=== PATIENT | female | born 1940 | race Caucasian/White ===

== ENCOUNTER → 2020-09-20 | Outpatient (CLI) | payer MEDICARE ==
--- NOTE | 2020-09-21 06:59 | CT ---
EXAMINATION TYPE: CT angio abdomen pelvis DATE OF EXAM: 09/20/2020 HISTORY: Swelling to right lower limb. CT DLP: 588mGycm Automated Exposure Control for Dose Reduction was Utilized. CONTRAST: CTA scan of the abdomen and pelvis is performed without and with IV Contrast, patient injected with 1 00 mL of Isovue 370. Three-D reconstructed images created on an independent workstation and reviewed. COMPARISON: None. FINDINGS: VASCULAR: No suspicious hyperdensity to suggest intramural hematoma. Patent celiac artery and SMA wit hout significant stenosis. Accessory left renal artery. The right single renal artery. Patent JHON. No significant stenosis. [id number] calcified plaque in the distal abdominal aorta. No significan t plaque or stenosis in common iliac arteries bilaterally. Mild to moderate peripheral calcified plaq ue common femoral arteries bilaterally left greater than right. No significant stenosis. Satisfactory branching into superficial and deep femoral arteries. No significant stenosis. No linear hypodensity to suggest dissection. No greater than 3.0 cm AAA. LUNG BASES: Mild to moderate anterior left greater than right bibasilar linear scarring and/or atelec tasis. LIVER/GB: Occasional subcentimeter low dense lesion presumed benign reference anterior left hepatic l obe axial image 16 series 3. PANCREAS: No significant abnormality is seen. SPLEEN: No significant abnormality is seen. ADRENALS: No significant abnormality is seen. KIDNEYS: No significant abnormality is seen. BOWEL: No significant abnormality is seen. UTERUS/ADNEXA: Anteverted uterus. Scattered bilateral pelvic phleboliths LYMPH NODES: Prominent borderline enlarged bilateral groin lymph nodes. No definitive greater than 1 cm abdominal or pelvic lymph nodes. Few scattered prominent but subcentimeter mesenteric lymph nodes. OSSEOUS STRUCTURES: Osseous structures demineralized. Metallic fixation hardware from left proximal f emur surgery partially image causes streak artifact somewhat limiting evaluation of pelvic structures . Mild facet arthropathy lower lumbar levels. OTHER: Moderate to large sized fat-containing umbilical hernia. There is small left inguinal hernia c ontaining portion of small bowel loop and some fluid. IMPRESSION: 1. No significant stenosis in the aortoiliac system bilaterally. 2. Small left inguinal hernia containing short segment of small bowel loop, no abnormal dilatation to suggest obstruction.
== END | disposition home or self-care (01) ==
LOC: RADCTMAIN 14:58
PROVIDERS: ATTEND Internal Medicine
DX: K40.90 Unilateral inguinal hernia, without obstruction or gangrene, not specified as recurrent (principal); Z88.2 Allergy status to sulfonamides
CPT/HCPCS: 82565; 84520; 36415; 74174; Q9967

== ENCOUNTER 2021-03-15 23:46 | Inpatient (IN) | payer MEDICARE ==
[2021-03-16] MEDS ORDERED: SODIUM CHLORIDE 0.9% 1,000 ML IV STA (00:07)
[2021-03-16] MEDS ORDERED: MORPHINE SULFATE 4 MG/ML SYRINGE IV STA (00:07)
--- NOTE | 2021-03-16 00:09 | ED ---
Abdominal Pain HPI - General Chief Complaint: Abdominal Pain Stated Complaint: Abdominal pain Time Seen by Provider: 03/15/21 23:47 Source: EMS, RN notes reviewed, old records reviewed Mode of arrival: EMS Limitations: no limitations - History of Present Illness Initial Comments: This is a 72-year-old female DF for evaluation. She presents today for ev aluation of abdominal pain nausea and not feeling well. Patient states she's had bloating abdominal pain for 3 days. Otherwise patient has no new complaints. Some occasional mild nausea with decreased appetite. No fevers. No dysuria no problems with bowel MD Complaint: abdominal pain -: days(s) (3) Location: diffuse Radiation: none Migration to: no migration Severity: moderate Severity scale (1-10): 5 Quality: cramping, aching Consistency: intermittent Improves With: nothing Worsens With: nothing Context: other (none) Associated Symptoms: nausea Treatments Prior to Arrival: other (none) - Related Data Home Medications Medication Instructions Recorded Confirmed Pantoprazole [Protonix] 40 mg PO W/BRKFST 03/16/21 03/16/21 Previous Rx's Medication Instructions Recorded Acetaminophen Tab [Tylenol Tab] 500 mg PO Q8H 5 Days tablet 03/24/21 Ibuprofen [Motrin] 600 mg PO TID PRN tab 03/24/21 Allergies Allergy/AdvReac Type Severity Reaction Status Date / Time Penicillins Allergy Unknown Verified 03/16/21 07:40 Sulfa (Sulfonamide Allergy Unknown Verified 03/16/21 07:40 Antibiotics) Review of Systems ROS Statement: Those systems with pertinent positive or pertinent negative responses have been documented in the HPI. ROS Other: All systems not noted in ROS Statement are negative. Past Medical History Past Medical History: GERD/Reflux, Pneumonia Additional Past Medical History / Comment(s): bowel perforation 2019, History of Any Multi-Drug Resistant Organisms: None Reported Past Surgical History: Bowel Resection Additional Past Surgical History / Comment(s): left femur surgery, Smoking Status: Never smoker Past Alcohol Use History: None Reported Past Drug Use History: None Reported - Past Family History Mother Family Medical History: Myocardial Infarction ([place]) General Exam Limitations: no limitations General appearance: alert, in no apparent distress Head exam: Present: atraumatic, normocephalic, normal inspection Eye exam: Present: normal appearance, PERRL, EOMI. Absent: scleral icterus, conjunctival injection, periorbital swelling ENT exam: Present: normal exam, mucous membranes moist Neck exam: Present: normal inspection. Absent: tenderness, meningismus, lymphadenopathy Respiratory exam: Present: normal lung sounds bilaterally. Absent: respiratory distress, wheezes, rales, rhonchi, stridor Cardiovascular Exam: Present: regular rate, normal rhythm, normal heart sounds. Absent: systolic murmur, diastolic murmur, rubs, gallop, clicks GI/Abdominal exam: Present: soft, normal bowel sounds. Absent: distended, t enderness, guarding, rebound, rigid Extremities exam: Present: normal inspection, full ROM, normal capillary refill. Absent: tenderness, pedal edema, joint swelling, calf tenderness Back exam: Present: normal inspection Neurological exam: Present: alert, oriented X3, CN II-XII intact Psychiatric exam: Present: normal affect, normal mood Skin exam: Present: warm, dry, intact, normal color. Absent: rash Course Vital Signs 03/15/21 03/16/21 03/16/21 23:48 04:55 08:26 Temperature 98.1 F 97.8 F Pulse Rate 82 76 75 Pulse Rate [ Right Brachial] Respiratory 16 16 18 Rate Blood Pressure 160/77 150/80 123/61 Blood Pressure [Right Arm] O2 Sat by Pulse 96 98 96 Oximetry 03/16/21 03/16/21 03/16/21 13:00 14:00 14:38 Temperature 97.9 F 97.9 F Pulse Rate 69 Pulse Rate [ 76 76 Right Brachial] Respiratory 12 12 18 Rate Blood Pressure 119/57 Blood Pressure 120/70 120/70 [Right Arm] O2 Sat by Pulse 97 97 95 Oximetry - Reevaluation(s) Reevaluation #1: Medical record is reviewed Patient symptoms are improved here in the ER Patient informed of results and questions answered Medical Decision Making - Medical Decision Making 80 female to the ER with bilateral inguinal hernia urinary tract infection. Patient will be admitted for IV antibiotics - Lab Data Result diagrams: 03/22/21 07:48 03/22/21 07:48 Lab Results 03/16/21 03/16/21 03/16/21 Range/Units 00:43 00:43 00:43 WBC 9.5 (3.8-10.6) k/uL RBC 4.10 (3.80-5.40) m/uL Hgb 12.7 (11.4-16.0) gm/dL Hct 38.1 (34.0-46.0) % MCV 92.9 (80.0-100.0) fL MCH 31.1 (25.0-35.0) pg MCHC 33.4 (31.0-37.0) g/dL RDW 12.9 (11.5-15.5) % Plt Count 196 (150-450) k/uL MPV 10.3 Immature Gran % (Auto) % Absolute Nucleated RBC (0.00-0.00) X 10*3/uL Neutrophils % 75 % Lymphocytes % 17 % Monocytes % 5 % Eosinophils % 2 % Basophils % 1 % Immature Gran # (0.00-0.04) X 10*3/uL Neutrophils # 7.2 (1.3-7.7) k/uL Lymphocytes # 1.6 (1.0-4.8) k/uL Monocytes # 0.4 (0-1.0) k/uL Eosinophils # 0.2 (0-0.7) k/uL Basophils # 0.1 (0-0.2) k/uL NRBC/100 WBC Diff (0.0-0.0) /100 WBCS PT 10.3 (9.0-12.0) sec INR 1.0 (<1.2) APTT 20.9 L (22.0-30.0) sec Sodium (137-145) mmol/L Potassium (3.5-5.1) mmol/L Chloride (98-107) mmol/L Carbon Dioxide (22-30) mmol/L Anion Gap mmol/L BUN (7-17) mg/dL Creatinine (0.52-1.04) mg/dL Est GFR (CKD-EPI)AfAm (>60 ml/min/1.73 sqM) Est GFR (CKD-EPI)NonAf (>60 ml/min/1.73 sqM) BUN/Creatinine Ratio (12.00-20.00) Ratio Glucose (74-99) mg/dL Lactic Ac Sepsis Rflx Plasma Lactic Acid Dilip (0.7-2.0) mmol/L Calcium (8.4-10.2) mg/dL Phosphorus (2.4-5.1) mg/dL Magnesium (1.5-2.4) mg/dL Total Bilirubin (0.2-1.3) mg/dL AST (14-36) U/L ALT (4-34) U/L Alkaline Phosphatase (38-126) U/L Creatine Kinase (30-135) U/L Troponin I (0.000-0.034) ng/mL Total Protein (6.3-8.2) g/dL Albumin (3.5-5.0) g/dL Globulin (1.6-3.3) g/dL Albumin/Globulin Ratio (1.60-3.17) g/dL Amylase (30-110) U/L Lipase (23-300) U/L Urine Color Light Yellow Urine Appearance Turbid H (Clear) Urine pH 7.5 (5.0-8.0) Ur Specific Harrold 1.017 (1.001-1.035) Urine Protein 1+ H (Negative) Urine Glucose (UA) Negative (Negative) Urine Ketones Negative (Negative) Urine Blood Small H (Negative) Urine Nitrite Negative (Negative) Urine Bilirubin Negative (Negative) Urine Urobilinogen <2.0 (<2.0) mg/dL Ur Leukocyte Esterase Large H (Negative) Urine RBC 18 H (0-5) /hpf Urine WBC >182 H (0-5) /hpf Ur Squamous Epith Cells 18 H (0-4) /hpf Urine Bacteria Occasional H (None) /hpf Urine Mucus Rare H (None) /hpf 03/16/21 03/16/21 03/16/21 Range/Units 00:43 00:43 00:43 WBC (3.8-10.6) k/uL RBC (3.80-5.40) m/uL Hgb (11.4-16.0) gm/dL Hct (34.0-46.0) % MCV (80.0-100.0) fL MCH (25.0-35.0) pg MCHC (31.0-37.0) g/dL RDW (11.5-15.5) % Plt Count (150-450) k/uL MPV Immature Gran % (Auto) % Absolute Nucleated RBC (0.00-0.00) X 10*3/uL Neutrophils % % Lymphocytes % % Monocytes % % Eosinophils % % Basophils % % Immature Gran # (0.00-0.04) X 10*3/uL Neutrophils # (1.3-7.7) k/uL Lymphocytes # (1.0-4.8) k/uL Monocytes # (0-1.0) k/uL Eosinophils # (0-0.7) k/uL Basophils # (0-0.2) k/uL NRBC/100 WBC Diff (0.0-0.0) /100 WBCS PT (9.0-12.0) sec INR (<1.2) APTT (22.0-30.0) sec Sodium 137 (137-145) mmol/L Potassium 4.2 (3.5-5.1) mmol/L Chloride 106 (98-107) mmol/L Carbon Dioxide 21 L (22-30) mmol/L Anion Gap 10 mmol/L BUN 23 H (7-17) mg/dL Creatinine 0.72 (0.52-1.04) mg/dL Est GFR (CKD-EPI)AfAm >90 (>60 ml/min/1.73 sqM) Est GFR (CKD-EPI)NonAf 81 (>60 ml/min/1.73 sqM) BUN/Creatinine Ratio (12.00-20.00) Ratio Glucose 131 H (74-99) mg/dL Lactic Ac Sepsis Rflx Plasma Lactic Acid Dilip 2.2 H* (0.7-2.0) mmol/L Calcium 10.1 (8.4-10.2) mg/dL Phosphorus (2.4-5.1) mg/dL Magnesium (1.5-2.4) mg/dL Total Bilirubin 0.3 (0.2-1.3) mg/dL AST 29 (14-36) U/L ALT 17 (4-34) U/L Alkaline Phosphatase 90 (38-126) U/L Creatine Kinase 144 H (30-135) U/L Troponin I <0.012 (0.000-0.034) ng/mL Total Protein 7.1 (6.3-8.2) g/dL Albumin 4.3 (3.5-5.0) g/dL Globulin (1.6-3.3) g/dL Albumin/Globulin Ratio (1.60-3.17) g/dL Amylase 101 (30-110) U/L Lipase 166 (23-300) U/L Urine Color Urine Appearance (Clear) Urine pH (5.0-8.0) Ur Specific [place] (1.001-1.035) Urine Protein (Negative) Urine Glucose (UA) (Negative) Urine Ketones (Negative) Urine Blood (Negative) Urine Nitrite (Negative) Urine Bilirubin (Negative) Urine Urobilinogen (<2.0) mg/dL Ur Leukocyte Esterase (Negative) Urine RBC (0-5) /hpf Urine WBC (0-5) /hpf Ur Squamous Epith Cells (0-4) /hpf Urine Bacteria (None) /hpf Urine Mucus (None) /hpf 03/16/21 03/16/21 03/16/21 Range/Units 02:02 04:21 04:21 WBC (3.8-10.6) k/uL RBC (3.80-5.40) m/uL Hgb (11.4-16.0) gm/dL Hct (34.0-46.0) % MCV (80.0-100.0) fL MCH (25.0-35.0) pg MCHC (31.0-37.0) g/dL RDW (11.5-15.5) % Plt Count (150-450) k/uL MPV Immature Gran % (Auto) % Absolute Nucleated RBC (0.00-0.00) X 10*3/uL Neutrophils % % Lymphocytes % % Monocytes % % Eosinophils % % Basophils % % Immature Gran # (0.00-0.04) X 10*3/uL Neutrophils # (1.3-7.7) k/uL Lymphocytes # (1.0-4.8) k/uL Monocytes # (0-1.0) k/uL Eosinophils # (0-0.7) k/uL Basophils # (0-0.2) k/uL NRBC/100 WBC Diff (0.0-0.0) /100 WBCS PT (9.0-12.0) sec INR (<1.2) APTT (22.0-30.0) sec Sodium (137-145) mmol/L Potassium (3.5-5.1) mmol/L Chloride (98-107) mmol/L Carbon Dioxide (22-30) mmol/L Anion Gap mmol/L BUN (7-17) mg/dL Creatinine (0.52-1.04) mg/dL Est GFR (CKD-EPI)AfAm (>60 ml/min/1.73 sqM) Est GFR (CKD-EPI)NonAf (>60 ml/min/1.73 sqM) BUN/Creatinine Ratio (12.00-20.00) Ratio Glucose (74-99) mg/dL Lactic Ac Sepsis Rflx Y Plasma Lactic Acid Dilip 1.4 (0.7-2.0) mmol/L Calcium (8.4-10.2) mg/dL Phosphorus (2.4-5.1) mg/dL Magnesium (1.5-2.4) mg/dL Total Bilirubin (0.2-1.3) mg/dL AST (14-36) U/L ALT (4-34) U/L Alkaline Phosphatase (38-126) U/L Creatine Kinase (30-135) U/L Troponin I <0.012 (0.000-0.034) ng/mL Total Protein (6.3-8.2) g/dL Albumin (3.5-5.0) g/dL Globulin (1.6-3.3) g/dL Albumin/Globulin Ratio (1.60-3.17) g/dL Amylase (30-110) U/L Lipase (23-300) U/L Urine Color Urine Appearance (Clear) Urine pH (5.0-8.0) Ur Specific Har[place] (1.001-1.035) Urine Protein (Negative) Urine Glucose (UA) (Negative) Urine Ketones (Negative) Urine Blood (Negative) Urine Nitrite (Negative) Urine Bilirubin (Negative) Urine Urobilinogen (<2.0) mg/dL Ur Leukocyte Esterase (Negative) Urine RBC (0-5) /hpf Urine WBC (0-5) /hpf Ur Squamous Epith Cells (0-4) /hpf Urine Bacteria (None) /hpf Urine Mucus (None) /hpf 03/16/21 03/17/21 03/17/21 Range/Units 07:09 04:55 04:55 WBC 6.33 (3.8-10.6) k/uL RBC 3.89 L (3.80-5.40) m/uL Hgb 11.8 L (11.4-16.0) gm/dL Hct 37.1 L (34.0-46.0) % MCV 95.4 (80.0-100.0) fL MCH 30.3 (25.0-35.0) pg MCHC 31.8 L (31.0-37.0) g/dL RDW 13.4 (11.5-15.5) % Plt Count 197 (150-450) k/uL MPV 13.3 H Immature Gran % (Auto) 0.6 % Absolute Nucleated RBC 0 (0.00-0.00) X 10*3/uL Neutrophils % 60.7 % Lymphocytes % 26.4 % Monocytes % 7.0 % Eosinophils % 3.9 % Basophils % 1.4 % Immature Gran # 0.04 (0.00-0.04) X 10*3/uL Neutrophils # 3.84 (1.3-7.7) k/uL Lymphocytes # 1.67 (1.0-4.8) k/uL Monocytes # 0.44 (0-1.0) k/uL Eosinophils # 0.25 (0-0.7) k/uL Basophils # 0.09 (0-0.2) k/uL NRBC/100 WBC Diff 0 (0.0-0.0) /100 WBCS PT (9.0-12.0) sec INR (<1.2) APTT (22.0-30.0) sec Sodium 142 (137-145) mmol/L Potassium 3.9 (3.5-5.1) mmol/L Chloride 107 (98-107) mmol/L Carbon Dioxide 25.2 (22-30) mmol/L Anion Gap 9.80 mmol/L BUN 11.0 (7-17) mg/dL Creatinine 0.9 (0.52-1.04) mg/dL Est GFR (CKD-EPI)AfAm 71.0 (>60 ml/min/1.73 sqM) Est GFR (CKD-EPI)NonAf 61.2 (>60 ml/min/1.73 sqM) BUN/Creatinine Ratio 12.22 (12.00-20.00) Ratio Glucose 103 (74-99) mg/dL Lactic Ac Sepsis Rflx Plasma Lactic Acid Dilip (0.7-2.0) mmol/L Calcium 9.5 (8.4-10.2) mg/dL Phosphorus 3.1 (2.4-5.1) mg/dL Magnesium 2.4 (1.5-2.4) mg/dL Total Bilirubin 0.6 (0.2-1.3) mg/dL AST 24 (14-36) U/L ALT 16 (4-34) U/L Alkaline Phosphatase 91 (38-126) U/L Creatine Kinase (30-135) U/L Troponin I <0.012 (0.000-0.034) ng/mL Total Protein 6.6 (6.3-8.2) g/dL Albumin 4.10 (3.5-5.0) g/dL Globulin 2.5 (1.6-3.3) g/dL Albumin/Globulin Ratio 1.64 (1.60-3.17) g/dL Amylase (30-110) U/L Lipase (23-300) U/L Urine Color Urine Appearance (Clear) Urine pH (5.0-8.0) Ur Specific [place] (1.001-1.035) Urine Protein (Negative) Urine Glucose (UA) (Negative) Urine Ketones (Negative) Urine Blood (Negative) Urine Nitrite (Negative) Urine Bilirubin (Negative) Urine Urobilinogen (<2.0) mg/dL Ur Leukocyte Esterase (Negative) Urine RBC (0-5) /hpf Urine WBC (0-5) /hpf Ur Squamous Epith Cells (0-4) /hpf Urine Bacteria (None) /hpf Urine Mucus (None) /hpf - Radiology Data Radiology results: report reviewed (CT abdomen and pelvis is positive for bilateral inguinal hernias), image reviewed Disposition Clinical Impression: Abdominal pain, UTI (urinary tract infection), Bilateral inguinal hernia Disposition: ADMITTED IP TO THIS [facility] Condition: Stable Is patient prescribed a controlled substance at d/c from ED?: No
[2021-03-16 00:57] LABS: Basophils # (A) 0.1 k/uL (0-0.2); Basophils % (A) 1 %; Eosinophils # (A) 0.2 k/uL (0-0.7); Eosinophils % (A) 2 %; HCT 38.1 % (34.0-46.0); HGB 12.7 gm/dL (11.4-16.0); Lymphocytes # (A) 1.6 k/uL (1.0-4.8); Lymphocytes % (A) 17 %; MCH 31.1 pg (25.0-35.0); MCHC 33.4 g/dL (31.0-37.0); MCV 92.9 fL (80.0-100.0); Mean Platelet Volume 10.3; Monocytes # (A) 0.4 k/uL (0-1.0); Monocytes % (A) 5 %; Neutrophils # (A) 7.2 k/uL (1.3-7.7); Neutrophils % (A) 75 %; Platelet Count 196 k/uL (150-450); RDW 12.9 % (11.5-15.5); WBC 9.5 k/uL (3.8-10.6)
[2021-03-16 01:10] LABS: ALT 17 U/L (4-34); AST 29 U/L (14-36); African American GFR (CKD) >90 (>60 ml/min/1.73 sqM); Albumin 4.3 g/dL (3.5-5.0); Alkaline Phosphatase 90 U/L (38-126); Amylase 101 U/L (30-110); Anion Gap 10 mmol/L; Blood Urea Nitrogen 23 mg/dL (7-17); Calcium 10.1 mg/dL (8.4-10.2); Carbon Dioxide 21 mmol/L (22-30); Chloride 106 mmol/L (98-107); Creatine Kinase 144 U/L (30-135); Glucose 131 mg/dL (74-99); Lipase 166 U/L (23-300); Non-African American GFR(CKD) 81 (>60 ml/min/1.73 sqM); Potassium 4.2 mmol/L (3.5-5.1); Sodium 137 mmol/L (137-145); Total Bilirubin 0.3 mg/dL (0.2-1.3); Total Protein 7.1 g/dL (6.3-8.2)
[2021-03-16 01:13] LABS: Prothrombin Time 10.3 sec (9.0-12.0)
[2021-03-16 01:15] LABS: Partial Thromboplastin Time 20.9 sec (22.0-30.0)
[2021-03-16 01:29] LABS: Appearance,Urine Turbid (Clear); Bacteria,Urine Occasional /hpf; Bilirubin,Urine Negative (Negative); Blood,Urine Small (Negative); Color,Urine Light Yellow; Glucose,Urine (UA) Negative (Negative); Ketones,Urine Negative (Negative); Leukocyte Esterase,Urine Large (Negative); Mucus,Urine Rare /hpf; Nitrite,Urine Negative (Negative); PH, Urine 7.5 (5.0-8.0); Protein,Urine 1+ (Negative); RBC,Urine 18 /hpf (0-5); Specific Gravity,Urine 1.017 (1.001-1.035); Squamous Epithelial Cell,Urine 18 /hpf (0-4); Urobilinogen,Urine <2.0 mg/dL (<2.0); WBC,Urine >182 /hpf (0-5)
[2021-03-16] MEDS ORDERED: ONDANSETRON 4 MG/2 ML VIAL IVP STA (01:46)
--- NOTE | 2021-03-16 02:29 | CT ---
EXAMINATION TYPE: CT abdomen pelvis w con DATE OF EXAM: 03/16/2021 COMPARISON: 09/20/2020 HISTORY: abdominal pain CT DLP: 1147 mGycm Automated exposure control for dose reduction was used. CONTRAST: Performed with IV Contrast, patient injected with 100 mL of Isovue 300. Exam from the diaphragm to the floor the pelvis with IV contrast. There is some mild subsegmental atelectasis at the lung bases. There is no pleural effusion. Heart si ze is normal. Stomach is intact. Liver spleen pancreas gallbladder appear intact. The bile ducts are not dilated. There is linear density in the gastric antrum measuring 2 cm. This could be a foreign glenna dy that is somewhat transverse in the gastric antrum. There are small hepatic cysts. The largest is in the inferior right lobe of the liver and measures 2 cm. Spleen is intact. There is no pancreatic mass. Gallbladder appears normal. The bile ducts are not dilated. There is no adrenal mass. Kidneys have normal size. There is no hydronephrosis. Ureters are not dilat ed. There is no retroperitoneal adenopathy. Bladder distends smoothly. There are bilateral inguinal h ernias that contain incarcerated loops of small bowel. Appendix is not seen. Cecum is low in the pelv is. There is no sign of thickened appendix. Bladder distends smoothly. Uterus is anteverted. I see no pelvic mass. Lumbar vertebra have normal alignment. There is no compression fracture. The bony pelvi s is intact. There is left hip surgery fixing an apparent old intertrochanteric fracture of the left femur. There is no ascites or free air. There is umbilical hernia that measures 3.8 cm and contains fat. IMPRESSION: Incarcerated bilateral inguinal hernias containing small bowel loops. I do not see a mechanical smal l bowel obstruction. Hernias are significantly increased in size compared to recent CT scan of 09/20/19 21. Umbilical hernia containing fat..
[2021-03-16] MEDS ORDERED: LEVOFLOXACIN 500MG-D5W PMX 500 MG in DEXTROSE/WATER 1 100ML.BAG IVPB STA (02:37)
[2021-03-16] MEDS ORDERED: metroNIDAZOLE-NS PMX 500 MG in SALINE 1 100ML.BAG IVPB STA (02:37)
[2021-03-16] MEDS ORDERED: MORPHINE SULFATE 4 MG/ML SYRINGE IV PRN (03:28)
[2021-03-16] MEDS ORDERED: ONDANSETRON 4 MG/2 ML VIAL IVP PRN (03:28)
[2021-03-16] MEDS ORDERED: NALOXONE 0.4 MG/ML 1 ML VIAL IV PRN (03:28)
[2021-03-16] MEDS: SODIUM CHLORIDE 0.9% 1,000 ML IV SCH ×3 (03:55→22:23)
--- NOTE | 2021-03-16 03:55 | P.HPIM ---
History of Present Illness H&P Date: 03/16/21 Patient is 80-year-old female with a PMH of GERD who presented to the emergency room with complaints of abdominal swelling and discomfort. The patient reports that her symptoms started 2-3 days ago and gradually worsened. She also reports increased urinary frequency but denied dysuria or hematuria. Also denied nausea, vomiting, diarrhea. In the emergency room, CT abdomen and pelvis with contrast revealed bilateral incarcerated inguinal hernias containing small bowel loops without a mechanical small bowel obstruction with hernia significantly increased from prior CT. Laboratory evaluation was remarkable for lactic acid 2.2, and UA consistent with UTI. Review of systems: Pertinent positives and negatives as discussed in HPI, a complete review of systems was performed and all other systems are negative. Physical examination: General: non toxic, no distress, appears at stated age, normal weight Derm: no unusual rashes/lesions no unusual ecchymoses, warm, dry Head: atraumatic, normocephalic, symmetric Eyes: EOMI, no lid lag, anicteric sclera, pupils equal round reactive to light ENT: Nose and ears atraumatic, no thrush, no pharyngeal erythema Neck: No thyromegaly, no cervical lymphadenopathy, trachea midline, supple Mouth: no lip lesion, mucus membranes moist Cardiovascular: S1S2 reg, no murmur, positive posterior tibial pulse bilateral, no edema, capillary refill less than 2 seconds Lungs: CTA bilateral, no rhonchi, no rales , no accessory muscle use Abdominal: soft, nontender to palpation, no hernias noted, no guarding, no appreciable organomegaly, normal bowel sounds Ext: no gross muscle atrophy, muscle strength 5 out of 5 in all 4 extremities grossly, no contractures, Neuro: CN II-XI grossly intact, light touch intact all 4 extremities, finger to nose within normal limits, Psych: Alert, oriented, appropriate affect Assessment/plan UTI -Continue with Levaquin -Continue with IV fluids -Follow up urine cultures Bilateral incarcerated inguinal hernias -General surgery consulted Lactic acidosis -Monitor to resolution DVT prophylaxis -Heparin subcu The patient is admitted with an anticipated less than 2 midnight stay for evaluation of UTI CODE STATUS: Full Code Discussed with: Patient Anticipated discharge date: in am Anticipated discharge place: Home Past Medical History Past Medical History: GERD/Reflux, Pneumonia Additional Past Medical History / Comment(s): bowel perforation 2019, History of Any Multi-Drug Resistant Organisms: None Reported Past Surgical History: Bowel Resection Additional Past Surgical History / Comment(s): left femur surgery, Smoking Status: Never smoker Past Alcohol Use History: None Reported Past Drug Use History: None Reported - Past Family History Mother Family Medical History: Myocardial Infarction ([place]) Medications and Allergies Allergies Allergy/AdvReac Type Severity Reaction Status Date / Time Penicillins Allergy Unknown Verified 03/16/21 00:22 Sulfa (Sulfonamide Allergy Unknown Verified 03/16/21 00:22 Antibiotics) Physical Exam Vitals: Vital Signs Temp Pulse Resp BP Pulse Ox 03/15/21 23:48 98.1 F 82 16 160/77 96 Intake and Output 03/15/21 03/15/21 03/16/21 14:59 22:59 06:59 Other: Weight 58.967 kg Results CBC & Chem 7: 03/16/21 00:43 03/16/21 00:43 Labs: Abnormal Lab Results - Last 24 Hours (Table) 03/16/21 03/16/21 03/16/21 Range/Units 00:43 00:43 00:43 APTT 20.9 L (22.0-30.0) sec Carbon Dioxide 21 L (22-30) mmol/L BUN 23 H (7-17) mg/dL Glucose 131 H (74-99) mg/dL Plasma Lactic Acid Dilip (0.7-2.0) mmol/L Creatine Kinase 144 H (30-135) U/L Urine Appearance Turbid H (Clear) Urine Protein 1+ H (Negative) Urine Blood Small H (Negative) Ur Leukocyte Esterase Large H (Negative) Urine RBC 18 H (0-5) /hpf Urine WBC >182 H (0-5) /hpf Ur Squamous Epith Cells 18 H (0-4) /hpf Urine Bacteria Occasional H (None) /hpf Urine Mucus Rare H (None) /hpf 03/16/21 Range/Units 00:43 APTT (22.0-30.0) sec Carbon Dioxide (22-30) mmol/L BUN (7-17) mg/dL Glucose (74-99) mg/dL Plasma Lactic Acid Dilip 2.2 H* (0.7-2.0) mmol/L Creatine Kinase (30-135) U/L Urine Appearance (Clear) Urine Protein (Negative) Urine Blood (Negative) Ur Leukocyte Esterase (Negative) Urine RBC (0-5) /hpf Urine WBC (0-5) /hpf Ur Squamous Epith Cells (0-4) /hpf Urine Bacteria (None) /hpf Urine Mucus (None) /hpf
[2021-03-16] MEDS ORDERED: LORazepam 2 MG/ML INJ IV STA (04:00)
--- NOTE | 2021-03-16 09:01 | XR ---
EXAMINATION TYPE: XR chest 1V DATE OF EXAM: 03/16/2021 COMPARISON: NONE HISTORY: Shortness of breath TECHNIQUE: Single frontal view of the chest is obtained. FINDINGS: There is no focal air space opacity, pleural effusion, or pneumothorax seen. The cardiac silhouette size is within normal limits. The osseous structures are intact. Atherosclerotic change aorta. Diffuse osteopenia. No overt failure. Hyperinflation suggests COPD. IMPRESSION: No acute process.
[2021-03-16] MEDS: LORazepam 2 MG/ML INJ IV PRN ×4 (09:09→22:23)
--- NOTE | 2021-03-16 14:42 | P.GSCN ---
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 Patient presents to the emergency room with abdominal bloating and discomfort. Her symptoms started about 2-3 days ago and continued to worsen. She also had worsening confusion. She is found have evidence of a UTI and is on antibiotics. A computed tomography scan abdomen and pelvis shows incarcerated bilateral inguinal hernias containing small bowel loops. Radiologist did not see a mechanical small bowel obstruction. Hernias are significantly increased in size compared to recent computed tomography scan in 09/20/2020. Umbilical hernia containing fat. Patient denies any abdominal pain at this time. Denies any nausea or vomiting. Denies any fever chills or sweats. Patient seen and examined with Dr. andres PAST MEDICAL HISTORY: See list. PAST SURGICAL HISTORY: See list. MEDICATIONS: See list. ALLERGIES: See list. SOCIAL HISTORY: No illicit drug use. REVIEW OF SYSTEMS: CONSTITUTIONAL: Denies fever or chills. HEENT: Denies blurred vision, vision changes, or eye pain. Denies hemoptysis CARDIOVASCULAR: Denies chest pain or pressure. RESPIRATORY: No shortness of breath. GASTROINTESTINAL: See HPI for pertinent findings HEMATOLOGIC: Denies bleeding disorders. GENITOURINARY: Denies any blood in urine or increased urinary frequency. SKIN: Denies pruitis. Denies rash. PHYSICAL EXAM: VITAL SIGNS: Reviewed GENERAL: Well-developed in no acute distress. HEENT: No sclera icterus. Extraocular movements grossly intact. Moist buccal mucosa. Head is atraumatic, normocephalic. No nasal drainage. ABDOMEN: Soft. Nondistended nontender. Small umbilical hernia noted NEUROLOGIC: Patient is confused. LABORATORY DATA: WBC 9.5 hemoglobin 12.7 sodium 137 BUN 23, and 0.7 to lactic 2.2 down to 1.4 Troponins negative LFTs and lipase normal UA positive for UTI IMAGING: Computed tomography scan findings as stated above ASSESSMENT: 1. Incarcerated bilateral inguinal hernias containing small bowel loops 2. Umbilical hernia containing fat PLAN: -We'll follow-up tomorrow and make further decision regarding when she will have surgical repair for her hernias -Continue full liquid diet -Continue treatment for her UTI Thank you for this consultation Physician Dermatology Physician Assistant note has been reviewed by physician. Signing provider agrees with the documented findings, assessment, and plan of care. Past Medical History Past Medical History: GERD/Reflux, Pneumonia Additional Past Medical History / Comment(s): bowel perforation 2019, History of Any Multi-Drug Resistant Organisms: None Reported Past Surgical History: Bowel Resection Additional Past Surgical History / Comment(s): left femur surgery, Smoking Status: Never smoker Past Alcohol Use History: None Reported Past Drug Use History: None Reported - Past Family History Mother Family Medical History: Myocardial Infarction (ND) Medications and Allergies Home Medications Medication Instructions Recorded Confirmed Type Hydrochlorothiazide 12.5 mg PO W/BRKFST 03/16/21 03/16/21 History [hydroCHLOROthiazide] Pantoprazole [Protonix] 40 mg PO W/BRKFST 03/16/21 03/16/21 History Allergies Allergy/AdvReac Type Severity Reaction Status Date / Time Penicillins Allergy Unknown Verified 03/16/21 07:40 Sulfa (Sulfonamide Allergy Unknown Verified 03/16/21 07:40 Antibiotics) Surgical - Exam Vital Signs Temp Pulse Resp BP Pulse Ox 98.1 F 82 16 160/77 96 03/15/21 23:48 03/15/21 23:48 03/15/21 23:48 03/15/21 23:48 03/15/21 23:48 Results - Labs 03/16/21 00:43 03/16/21 00:43 Abnormal Lab Results - Last 24 Hours (Table) 03/16/21 03/16/21 03/16/21 Range/Units 00:43 00:43 00:43 APTT 20.9 L (22.0-30.0) sec Carbon Dioxide 21 L (22-30) mmol/L BUN 23 H (7-17) mg/dL Glucose 131 H (74-99) mg/dL Plasma Lactic Acid Dilip (0.7-2.0) mmol/L Creatine Kinase 144 H (30-135) U/L Urine Appearance Turbid H (Clear) Urine Protein 1+ H (Negative) Urine Blood Small H (Negative) Ur Leukocyte Esterase Large H (Negative) Urine RBC 18 H (0-5) /hpf Urine WBC >182 H (0-5) /hpf Ur Squamous Epith Cells 18 H (0-4) /hpf Urine Bacteria Occasional H (None) /hpf Urine Mucus Rare H (None) /hpf 03/16/21 Range/Units 00:43 APTT (22.0-30.0) sec Carbon Dioxide (22-30) mmol/L BUN (7-17) mg/dL Glucose (74-99) mg/dL Plasma Lactic Acid Dilip 2.2 H* (0.7-2.0) mmol/L Creatine Kinase (30-135) U/L Urine Appearance (Clear) Urine Protein (Negative) Urine Blood (Negative) Ur Leukocyte Esterase (Negative) Urine RBC (0-5) /hpf Urine WBC (0-5) /hpf Ur Squamous Epith Cells (0-4) /hpf Urine Bacteria (None) /hpf Urine Mucus (None) /hpf Microbiology - Last 24 Hours (Table) 03/16/21 00:43 Urine Culture - Preliminary Urine,Voided Diabetes panel 03/16/21 Range/Units 00:43 Sodium 137 (137-145) mmol/L Potassium 4.2 (3.5-5.1) mmol/L Chloride 106 (98-107) mmol/L Carbon Dioxide 21 L (22-30) mmol/L BUN 23 H (7-17) mg/dL Creatinine 0.72 (0.52-1.04) mg/dL Glucose 131 H (74-99) mg/dL Calcium 10.1 (8.4-10.2) mg/dL AST 29 (14-36) U/L ALT 17 (4-34) U/L Alkaline Phosphatase 90 (38-126) U/L Total Protein 7.1 (6.3-8.2) g/dL Albumin 4.3 (3.5-5.0) g/dL Calcium panel 03/16/21 Range/Units 00:43 Calcium 10.1 (8.4-10.2) mg/dL Albumin 4.3 (3.5-5.0) g/dL Pituitary panel 03/16/21 Range/Units 00:43 Sodium 137 (137-145) mmol/L Potassium 4.2 (3.5-5.1) mmol/L Chloride 106 (98-107) mmol/L Carbon Dioxide 21 L (22-30) mmol/L BUN 23 H (7-17) mg/dL Creatinine 0.72 (0.52-1.04) mg/dL Glucose 131 H (74-99) mg/dL Calcium 10.1 (8.4-10.2) mg/dL Adrenal panel 03/16/21 Range/Units 00:43 Sodium 137 (137-145) mmol/L Potassium 4.2 (3.5-5.1) mmol/L Chloride 106 (98-107) mmol/L Carbon Dioxide 21 L (22-30) mmol/L BUN 23 H (7-17) mg/dL Creatinine 0.72 (0.52-1.04) mg/dL Glucose 131 H (74-99) mg/dL Calcium 10.1 (8.4-10.2) mg/dL Total Bilirubin 0.3 (0.2-1.3) mg/dL AST 29 (14-36) U/L ALT 17 (4-34) U/L Alkaline Phosphatase 90 (38-126) U/L Total Protein 7.1 (6.3-8.2) g/dL Albumin 4.3 (3.5-5.0) g/dL
--- NOTE | 2021-03-16 17:56 | P.PN ---
Subjective Progress Note Date: 03/16/21 Hospital course: Patient is a 80-year-old female with a past medical history of GERD and history of bowel perforation in 2019 requiring bowel resection. She presented to the emergency department on 03/15/21 with a chief complaint of abdominal pain. This reportedly began approximately 2-3 days ago and is progressively worsened. Patient was found to have an initial lactic acid of 2.2, she was given bolus of IV fluids resulting in decrease of lactate to 1.4. Urinalysis concerning for infection as it had turbid appearance with protein, blood, leukocytes, and gr eater than 182 WBCs however specimen was contaminated with 18 squamous epithelial cells. Urine culture obtained. CT abdomen and pelvis was completed revealing incarcerated bilateral inguinal hernias containing small bowel loops. Patient admitted under our services with consultation to general surgery. Physical exam: Vital signs reviewed and stable. General: Nontoxic, no distress and appears stated age. Derm: Skin warm and dry, normal coloration for ethnicity. Head: Atraumatic, normocephalic and symmetric. Eyes: EOMs intact, no lid lag, and anicteric sclera Mouth: no lip lesions, mucus membranes moist Cardiovascular: regular rate and rhythm with normal S1S2, no murmur, positive posterior tibial pulses bilaterally, and cap refill < 2 seconds. Lungs: Respirations even, regular, and unlabored on room air. Lungs CTA pallavi aterally, no rhonchi, no rales, no wheezing, and no accessory muscle usage. Abdominal: soft, nontender to palpation, no guarding, no appreciable organomegaly Ext: ROM intact. No gross muscle atrophy, no edema, no contractures Neuro: Speech clear, face symmetrical and CN II-XII grossly intact with no noted focal neuro deficits Psych: Alert and oriented to person, place, time, and situation. Appropriate and pleasant affect. Assessment and Plan of Care: UTI -Change antibiotic from Levaquin to Macrobid twice daily. -Urine culture pending. -Bladder management Bilateral incarcerated inguinal hernias -Consult to Gen. surgery -Symptomatic care and pain management. -Nothing by mouth until cleared by general surgery. lactic acidosis, resolved GERD -Protonix 40 mg IVP daily. CODE STATUS: full code DVT prophylaxis: heparin Discussed with: patient, RN, and patient's Anticipated discharge date: clinical course to determine Anticipated discharge place: home A total of 45 minutes was spent on the care of this complex patient more than 50% of the time was spent in counseling and care coordination. Objective - Vital Signs Vital signs: Vital Signs Temp 97.8 F 03/16/21 08:26 Pulse 75 03/16/21 08:26 Resp 18 03/16/21 08:26 BP 123/61 03/16/21 08:26 Pulse Ox 96 03/16/21 08:26 Intake & Output 03/15/21 03/16/21 03/16/21 18:59 06:59 18:59 Weight 58.967 kg - Labs CBC & Chem 7: 03/16/21 00:43 03/16/21 00:43 Labs: Abnormal Lab Results - Last 24 Hours (Table) 03/16/21 03/16/21 03/16/21 Range/Units 00:43 00:43 00:43 APTT 20.9 L (22.0-30.0) sec Carbon Dioxide 21 L (22-30) mmol/L BUN 23 H (7-17) mg/dL Glucose 131 H (74-99) mg/dL Plasma Lactic Acid Dilip (0.7-2.0) mmol/L Creatine Kinase 144 H (30-135) U/L Urine Appearance Turbid H (Clear) Urine Protein 1+ H (Negative) Urine Blood Small H (Negative) Ur Leukocyte Esterase Large H (Negative) Urine RBC 18 H (0-5) /hpf Urine WBC >182 H (0-5) /hpf Ur Squamous Epith Cells 18 H (0-4) /hpf Urine Bacteria Occasional H (None) /hpf Urine Mucus Rare H (None) /hpf 03/16/21 Range/Units 00:43 APTT (22.0-30.0) sec Carbon Dioxide (22-30) mmol/L BUN (7-17) mg/dL Glucose (74-99) mg/dL Plasma Lactic Acid Dilip 2.2 H* (0.7-2.0) mmol/L Creatine Kinase (30-135) U/L Urine Appearance (Clear) Urine Protein (Negative) Urine Blood (Negative) Ur Leukocyte Esterase (Negative) Urine RBC (0-5) /hpf Urine WBC (0-5) /hpf Ur Squamous Epith Cells (0-4) /hpf Urine Bacteria (None) /hpf Urine Mucus (None) /hpf
[2021-03-16] MEDS: NITROFURANTOIN MONOHYD/M-CRYST 100 MG CAP PO SCH (22:23)
[2021-03-16] MEDS: HEPARIN SODIUM,PORCINE/PF 5,000 UNIT/0.5 ML SYRINGE SQ SCH (22:24)
[2021-03-17] MEDS: SODIUM CHLORIDE 0.9% 1,000 ML IV SCH (03:00)
[2021-03-17] MEDS ORDERED: LEVOFLOXACIN 500MG-D5W PMX 500 MG in DEXTROSE/WATER 1 100ML.BAG IVPB SCH (05:00)
[2021-03-17] MEDS: PANTOPRAZOLE 40 MG/10 ML VIAL IVP SCH (08:48)
[2021-03-17] MEDS: HEPARIN SODIUM,PORCINE/PF 5,000 UNIT/0.5 ML SYRINGE SQ SCH ×2 (08:48→17:12)
[2021-03-17] MEDS: NITROFURANTOIN MONOHYD/M-CRYST 100 MG CAP PO SCH ×2 (09:08→19:21)
[2021-03-17 09:37] LABS: Basophils # (A) 0.09 X 10*3/uL (0.00-0.10); Basophils % (A) 1.4 %; Eosinophils # (A) 0.25 X 10*3/uL (0.04-0.35); Eosinophils % (A) 3.9 %; HCT 37.1 % (37.2-46.3); HGB 11.8 g/dL (12.0-15.0); Lymphocytes # (A) 1.67 X 10*3/uL (0.90-5.00); Lymphocytes % (A) 26.4 %; MCH 30.3 pg (27.0-32.0); MCHC 31.8 g/dL (32.0-37.0); MCV 95.4 fL (80.0-97.0); Mean Platelet Volume 13.3 fL (9.5-12.2); Monocytes # (A) 0.44 X 10*3/uL (0.20-1.00); Neutrophils # (A) 3.84 X 10*3/uL (1.80-7.70); Neutrophils % (A) 60.7 %; Platelet Count 197 X 10*3/uL (140-440); RBC 3.89 X 10*6/uL (4.10-5.20); RDW 13.4 % (11.5-14.5); WBC 6.33 X 10*3/uL (4.50-10.00)
[2021-03-17 11:28] LABS: Albumin 4.1 g/dL (3.80-4.90); Albumin/Globulin Ratio 1.64 (1.60-3.17); Anion Gap 9.8 mmol/L (4.00-12.00); BUN/Creat Ratio 12.22 Ratio (12.00-20.00); Calcium 9.5 mg/dL (8.7-10.3); Carbon Dioxide 25.2 mmol/L (21.6-31.8); Globulin 2.5 g/dL (1.6-3.3); Magnesium 2.4 mg/dL (1.5-2.4); Non-African American GFR(CKD) 61.2 (60.0-200.0); Phosphorus 3.1 mg/dL (2.4-5.1); Potassium 3.9 mmol/L (3.5-5.5); Total Bilirubin 0.6 mg/dL (0.3-1.2); Total Protein 6.6 g/dL (6.2-8.2)
--- NOTE | 2021-03-17 11:44 | P.PN ---
Subjective Progress Note Date: 03/17/21 Hospital course: Patient is a 80-year-old female with a past medical history of GERD and history of bowel perforation in 2019 requiring bowel resection. She presented to the emergency department on 03/15/21 with a chief complaint of abdominal pain. This reportedly began approximately 2-3 days ago and is progressively worsened. Patient was found to have an initial lactic acid of 2.2, she was given bolus of IV fluids resulting in decrease of lactate to 1.4. Urinalysis concerning for infection as it had turbid appearance with protein, blood, leukocytes, and gr eater than 182 WBCs however specimen was contaminated with 18 squamous epithelial cells. Urine culture obtained. CT abdomen and pelvis was completed revealing incarcerated bilateral inguinal hernias containing small bowel loops. Patient admitted under our services with consultation to general surgery. Patient to continue to receive treatment for UTI pending urine culture results. Tentative plan is for surgical repair of incarcerated hernias on 03/21/21. Physical exam: Patient seen and fully evaluated at the bedside this morning. Patient alert to person and place but showing Significant confusion to time and situation. Patient with outbursts and agitation. Family at bedside, reports patient has history of confusion during previous illness. Patient continues to be treated for UTI with Macrobid and urine cultures are pending. Vital signs reviewed and stable. General: Nontoxic, no distress and appears stated age. Derm: Skin warm and dry, normal coloration for ethnicity. Head: Atraumatic, normocephalic and symmetric. Eyes: EOMs intact, no lid lag, and anicteric sclera Mouth: no lip lesions, mucus membranes moist Cardiovascular: regular rate and rhythm with normal S1S2, no murmur, positive posterior tibial pulses bilaterally, and cap refill < 2 seconds. Lungs: Respirations even, regular, and unlabored on room air. Lungs CTA bilaterally, no rhonchi, no rales, no wheezing, and no accessory muscle usage. Abdominal: soft, diffuse abdominal tenderness to palpation, no guarding, no appreciable organomegaly Ext: ROM intact. No gross muscle atrophy, no edema, no contractures Neuro: Speech clear, face symmetrical, speech clear. Equal and strong bowel movement of upper and lower extremities with sensation intact. Psych: Patient alert to person, and place but showing significant confusion to time and situation. Assessment and Plan of Care: UTI -Continue antibiotic treatment with Macrobid twice daily. -Urine culture pending. -Bladder management Bilateral incarcerated inguinal hernias -Consult to Gen. surgery, plans for surgery on Sunday -Symptomatic care and pain management. -Regular diet, nothing by mouth Sunday night midnight pending tentative surgical repair of incarcerated hernias on 03/21/21. Acute encephalopathy, likely secondary to UTI -Safe and supportive care while providing assistance and redirection as needed. -Fall precautions -Treatment of underlying infectious process, UTI with Macrobid. lactic acidosis, resolved GERD -Protonix 40 mg IVP daily. CODE STATUS: full code DVT prophylaxis: heparin Discussed with: patient, RN, patient's and daughter Anticipated discharge date: clinical course to determine Anticipated discharge place: home A total of 45 minutes was spent on the care of this complex patient more than 50% of the time was spent in counseling and care coordination. Objective - Vital Signs Vital signs: Vital Signs Temp 98.2 F 03/17/21 08:00 Pulse 82 03/17/21 08:00 Resp 16 03/17/21 08:00 BP 150/71 03/17/21 08:00 Pulse Ox 95 03/17/21 08:00 Intake & Output 03/16/21 03/17/21 03/17/21 18:59 06:59 18:59 Intake Total 200 Output Total 550 Balance -550 200 Weight 58.967 kg Intake: Oral 200 Output: Urine 550 Other: Voiding Method Bedside Commode External Catheter External Catheter # Bowel Movements 1 - Labs CBC & Chem 7: 03/17/21 04:55 03/17/21 04:55 Labs: Abnormal Lab Results - Last 24 Hours (Table) 03/17/21 Range/Units 04:55 RBC 3.89 L (4.10-5.20) X 10*6/uL Hgb 11.8 L (12.0-15.0) g/dL Hct 37.1 L (37.2-46.3) % MCHC 31.8 L (32.0-37.0) g/dL MPV 13.3 H (9.5-12.2) fL Microbiology - Last 24 Hours (Table) 03/16/21 00:43 Urine Culture - Preliminary Urine,Voided
[2021-03-17] MEDS: LORazepam 2 MG/ML INJ IV PRN ×3 (13:46→23:00)
--- NOTE | 2021-03-17 13:58 | P.PN ---
Subjective Progress Note Date: 03/17/21 CHIEF COMPLAINT: Abdominal discomfort and bloating HISTORY OF PRESENT ILLNESS: Surgical service is following in regards to patient's bilateral incarcerated inguinal hernias and umbilical hernia. Patient denies any abdominal pain. She is still confused. She is receiving antibiotics for UTI. Afebrile. WBC 6.33 hemoglobin 11.8 PHYSICAL EXAM: VITAL SIGNS: Reviewed. GENERAL: Well-developed in no acute distress. HEENT: No sclera icterus. Extraocular movements grossly intact. Moist buccal mucosa. Head is atraumatic, normocephalic. ABDOMEN: Soft. Nondistended. NEUROLOGIC: Confused ASSESSMENT: 1. Incarcerated bilateral inguinal hernias containing small bowel loops 2. Umbilical hernia containing fat PLAN: -Patient scheduled for hernia repair on 03/21/[address] andres -Continue treatment for UTI per medicine service Physician Instructor Bridge note has been reviewed by physician. Signing provider agrees with the documented findings, assessment, and plan of care. Objective - Vital Signs Vital signs: Vital Signs Temp 98.2 F 03/17/21 08:00 Pulse 82 03/17/21 08:00 Resp 16 03/17/21 08:00 BP 150/71 03/17/21 08:00 Pulse Ox 95 03/17/21 08:00 Intake & Output 03/16/21 03/17/21 03/17/21 18:59 06:59 18:59 Intake Total 200 Output Total 550 Balance -550 200 Weight 58.967 kg Intake: Oral 200 Output: Urine 550 Other: Voiding Method Bedside Commode External Catheter External Catheter # Bowel Movements 1 - Labs CBC & Chem 7: 03/17/21 04:55 03/17/21 04:55 Labs: Abnormal Lab Results - Last 24 Hours (Table) 03/17/21 Range/Units 04:55 RBC 3.89 L (4.10-5.20) X 10*6/uL Hgb 11.8 L (12.0-15.0) g/dL Hct 37.1 L (37.2-46.3) % MCHC 31.8 L (32.0-37.0) g/dL MPV 13.3 H (9.5-12.2) fL Microbiology - Last 24 Hours (Table) 03/16/21 00:43 Urine Culture - Preliminary Urine,Voided
[2021-03-17] MEDS: MORPHINE SULFATE 2 MG/ML SYRINGE IV PRN (19:21)
[2021-03-17] MEDS ORDERED: QUEtiapine 25 MG TAB PO STA (20:04)
[2021-03-18] MEDS: HEPARIN SODIUM,PORCINE/PF 5,000 UNIT/0.5 ML SYRINGE SQ SCH ×3 (02:23→17:01)
[2021-03-18] MEDS: PANTOPRAZOLE 40 MG/10 ML VIAL IVP SCH (08:22)
[2021-03-18 11:28] LABS: HGB 12.2 g/dL (12.0-15.0); MCH 30.8 pg (27.0-32.0); MCV 93.4 fL (80.0-97.0); Mean Platelet Volume 12.9 fL (9.5-12.2); Platelet Count 185 X 10*3/uL (140-440); RBC 3.96 X 10*6/uL (4.10-5.20); RDW 13.2 % (11.5-14.5); WBC 8.89 X 10*3/uL (4.50-10.00)
[2021-03-18 12:11] LABS: Anion Gap 11.2 mmol/L (4.00-12.00); BUN/Creat Ratio 12.22 Ratio (12.00-20.00); Calcium 9.7 mg/dL (8.7-10.3); Carbon Dioxide 24.8 mmol/L (21.6-31.8); Magnesium 2.2 mg/dL (1.5-2.4); Non-African American GFR(CKD) 61.2 (60.0-200.0); Potassium 4.1 mmol/L (3.5-5.5)
--- NOTE | 2021-03-18 13:05 | P.PN ---
Subjective Progress Note Date: 03/18/21 Hospital course: Patient is a 80-year-old female with a past medical history of GERD and history of bowel perforation in 2019 requiring bowel resection. She presented to the emergency department on 03/15/21 with a chief complaint of abdominal pain. This reportedly began approximately 2-3 days ago and is progressively worsened. Patient was found to have an initial lactic acid of 2.2, she was given bolus of IV fluids resulting in decrease of lactate to 1.4. Urinalysis concerning for infection as it had turbid appearance with protein, blood, leukocytes, and gr eater than 182 WBCs however specimen was contaminated with 18 squamous epithelial cells. Urine culture obtained. CT abdomen and pelvis was completed revealing incarcerated bilateral inguinal hernias containing small bowel loops. Patient admitted under our services with consultation to general surgery. Patient to continue to receive treatment for UTI pending urine culture results. Tentative plan is for surgical repair of incarcerated hernias on 03/21/21. Physical exam: Patient seen and fully evaluated at the bedside this morning. Patient's mentation remains unchanged she continues to be confused to time and situation and does not exhibit understanding of current hospitalization. Patient continues with outbursts and periods of agitation. Patient continues to be treated for UTI with Macrobid pending urine cultures. Tentative plan remains for surgical repair of incarcerated hernias on 03/21/21. Vital signs reviewed and stable. General: Nontoxic, no distress and appears stated age. Derm: Skin warm and dry, normal coloration for ethnicity. Head: Atraumatic, normocephalic and symmetric. Eyes: EOMs intact, no lid lag, and anicteric sclera Mouth: no lip lesions, mucus membranes moist Cardiovascular: regular rate and rhythm with normal S1S2, no murmur, positive posterior tibial pulses bilaterally, and cap refill < 2 seconds. Lungs: Respirations even, regular, and unlabored on room air. Lungs CTA bilaterally, no rhonchi, no rales, no wheezing, and no accessory muscle usage. Abdominal: soft, diffuse abdominal tenderness to palpation, no guarding, no appreciable organomegaly Ext: ROM intact. No gross muscle atrophy, no edema, no contractures Neuro: Speech clear, face symmetrical, speech clear. Equal and strong bowel movement of upper and lower extremities with sensation intact. Psych: Patient alert to person, and place but showing significant confusion to time and situation. Assessment and Plan of Care: UTI -Continue antibiotic treatment with Macrobid twice daily. -Urine culture pending. -Bladder management Bilateral incarcerated inguinal hernias -Consult to Gen. surgery, tentative plans for surgery on Sunday -Symptomatic care and pain management. -Regular diet, nothing by mouth Sunday night midnight pending tentative surgical repair of incarcerated hernias on 03/21/21. Acute encephalopathy, likely secondary to UTI -Safe and supportive care while providing assistance and redirection as needed. -Fall precautions -Treatment of underlying infectious process, UTI with Macrobid. lactic acidosis, resolved GERD -Protonix 40 mg IVP daily. CODE STATUS: full code DVT prophylaxis: heparin Discussed with: patient, RN, patient's and daughter Anticipated discharge date: clinical course to determine Anticipated discharge place: home A total of 45 minutes was spent on the care of this complex patient more than 50% of the time was spent in counseling and care coordination. Objective - Vital Signs Vital signs: Vital Signs Temp 98.0 F 03/18/21 07:49 Pulse 93 03/18/21 07:49 Resp 18 03/18/21 07:49 BP 117/69 03/18/21 07:49 Pulse Ox 92 L 03/18/21 07:49 Intake & Output 03/17/21 03/18/21 03/18/21 18:59 06:59 18:59 Intake Total 300 350 Balance 300 350 Intake: Oral 300 350 Other: Voiding Method External Catheter External Catheter - Labs CBC & Chem 7: 03/18/21 05:43 03/18/21 05:43 Labs: Abnormal Lab Results - Last 24 Hours (Table) 03/18/21 03/18/21 Range/Units 05:43 05:43 RBC 3.96 L (4.10-5.20) X 10*6/uL Hct 37.0 L (37.2-46.3) % MPV 12.9 H (9.5-12.2) fL Glucose 143 H (70-110) mg/dL Microbiology - Last 24 Hours (Table) 03/16/21 00:43 Urine Culture - Final Urine,Voided
[2021-03-18] MEDS: NITROFURANTOIN MONOHYD/M-CRYST 100 MG CAP PO SCH ×2 (13:21→22:35)
--- NOTE | 2021-03-18 15:23 | P.PN ---
Subjective Progress Note Date: 03/18/21 CHIEF COMPLAINT: Abdominal discomfort and bloating HISTORY OF PRESENT ILLNESS: Surgical service is following in regards to patient's bilateral incarcerated inguinal hernias and umbilical hernia. Patient denies any abdominal pain. She is still confused. She is receiving antibiotics for UTI. Afebrile. WBC 8.89 hemoglobin 12.2 sodium 140 potassium 4.1 creatinine 0.9 PHYSICAL EXAM: VITAL SIGNS: Reviewed. GENERAL: Well-developed in no acute distress. HEENT: No sclera icterus. Extraocular movements grossly intact. Moist buccal mucosa. Head is atraumatic, normocephalic. ABDOMEN: Soft. Nondistended. NEUROLOGIC: Confused ASSESSMENT: 1. Incarcerated bilateral inguinal hernias containing small bowel loops 2. Umbilical hernia containing fat PLAN: -Patient scheduled for hernia repair on 03/21/[address] andres -Continue treatment for UTI per medicine service Physician Bending Press Operator note has been reviewed by physician. Signing provider agrees with the documented findings, assessment, and plan of care. Objective - Vital Signs Vital signs: Vital Signs Temp 98.2 F 03/18/21 14:00 Pulse 94 03/18/21 14:00 Resp 16 03/18/21 14:00 BP 122/72 03/18/21 14:00 Pulse Ox 96 03/18/21 14:00 Intake & Output 03/17/21 03/18/21 03/18/21 18:59 06:59 18:59 Intake Total 300 350 Balance 300 350 Intake: Oral 300 350 Other: Voiding Method External Catheter External Catheter - Labs CBC & Chem 7: 03/18/21 05:43 03/18/21 05:43 Labs: Abnormal Lab Results - Last 24 Hours (Table) 03/18/21 03/18/21 Range/Units 05:43 05:43 RBC 3.96 L (4.10-5.20) X 10*6/uL Hct 37.0 L (37.2-46.3) % MPV 12.9 H (9.5-12.2) fL Glucose 143 H (70-110) mg/dL Microbiology - Last 24 Hours (Table) 03/16/21 00:43 Urine Culture - Final Urine,Voided
[2021-03-18] MEDS ORDERED: LORazepam 1 MG TAB PO STA (22:36)
[2021-03-19] MEDS: HEPARIN SODIUM,PORCINE/PF 5,000 UNIT/0.5 ML SYRINGE SQ SCH ×4 (00:24→23:14)
[2021-03-19] MEDS: PANTOPRAZOLE 40 MG/10 ML VIAL IVP SCH (08:20)
[2021-03-19] MEDS: NITROFURANTOIN MONOHYD/M-CRYST 100 MG CAP PO SCH (08:21)
--- NOTE | 2021-03-19 09:52 | P.PN ---
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 She presented to the emergency department on 03/15/21 with a chief complaint of abdominal pain. This reportedly began approximately 2-3 days ago and is progressively worsened. Patient was found to have an initial lactic acid of 2.2, she was given bolus of IV fluids resulting in decrease of lactate to 1.4. Urinalysis concerning for infection as it had turbid appearance with protein, blood, leukocytes, and gr eater than 182 WBCs however specimen was contaminated with 18 squamous epithelial cells. Urine culture obtained. CT abdomen and pelvis was completed revealing incarcerated bilateral inguinal hernias containing small bowel loops. Patient admitted under our services with consultation to general surgery. Patient to continue to receive treatment for UTI pending urine culture results. Tentative plan is for surgical repair of incarcerated hernias on 03/21/21. Physical exam: Patient seen and fully evaluated at the bedside this morning. Patient's mentation remains unchanged she continues to be confused to time and situation and does not exhibit understanding of current hospitalization. She continues with outbursts and periods of agitation and yelling out. Urine culture was negative, patient afebrile, normal WBCs, and no signs of infection at this time. Macrobid discontinued. Tentative plan remains for surgical repair of inc arcerated hernias on 03/21/21. Vital signs reviewed and stable. General: Nontoxic, no distress and appears stated age. Derm: Skin warm and dry, normal coloration for ethnicity. Head: Atraumatic, normocephalic and symmetric. Eyes: EOMs intact, no lid lag, and anicteric sclera Mouth: no lip lesions, mucus membranes moist Cardiovascular: regular rate and rhythm with normal S1S2, no murmur, positive posterior tibial pulses bilaterally, and cap refill < 2 seconds. Lungs: Respirations even, regular, and unlabored on room air. Lungs CTA bilaterally, no rhonchi, no rales, no wheezing, and no accessory muscle usage. Abdominal: soft, diffuse abdominal tenderness to palpation, no guarding, no a ppreciable organomegaly Ext: ROM intact. No gross muscle atrophy, no edema, no contractures Neuro: Speech clear, face symmetrical, speech clear. Equal and strong bowel movement of upper and lower extremities with sensation intact. Psych: Patient alert to person, and place but showing significant confusion to time and situation. Assessment and Plan of Care: Bilateral incarcerated inguinal hernias -Consult to Gen. surgery, tentative plans for surgery on Sunday -Symptomatic care and pain management. -Regular diet, nothing by mouth Sunday night midnight pending tentative surgical repair of incarcerated hernias on 03/21/21. UTI -Urine culture negative. -Macrobid discontinued. -We will continue Bladder management Acute encephalopathy -Safe and supportive care while providing assistance and redirection as needed. -Fall precautions lactic acidosis, resolved GERD -Protonix 40 mg IVP daily. CODE STATUS: full code DVT prophylaxis: heparin Discussed with: Patient and RN, attempts made to call patient's unsuccessful. Anticipated discharge date: clinical course to determine Anticipated discharge place: home A total of 45 minutes was spent on the care of this complex patient more than 50% of the time was spent in counseling and care coordination. Objective - Vital Signs Vital signs: Vital Signs Temp 98.5 F 03/19/21 08:00 Pulse 95 03/19/21 08:00 Resp 16 03/19/21 08:00 BP 153/77 03/19/21 08:00 Pulse Ox 94 L 03/19/21 08:00 Intake & Output 03/18/21 03/19/21 03/19/21 18:59 06:59 18:59 Intake Total 120 Output Total 400 Balance -280 Intake: Oral 120 Output: Urine 400 Other: # Voids 1 - Labs CBC & Chem 7: 03/18/21 05:43 03/18/21 05:43 Labs: Abnormal Lab Results - Last 24 Hours (Table) 03/18/21 03/18/21 Range/Units 05:43 05:43 RBC 3.96 L (4.10-5.20) X 10*6/uL Hct 37.0 L (37.2-46.3) % MPV 12.9 H (9.5-12.2) fL Glucose 143 H (70-110) mg/dL
--- NOTE | 2021-03-19 16:35 | P.PN ---
Subjective Progress Note Date: 03/19/21 CHIEF COMPLAINT: Abdominal pain HISTORY OF PRESENT ILLNESS: The patient is a 80-year-old female admitted 03/16/2021 for generalized abdominal swelling and discomfort. Additional workup demonstrated multiple abdominal hernias. Her pain is controlled. ROS: No reports of nausea and vomiting. No bowel movements. No fevers or chills. No new chest pain. No productive sputum PHYSICAL EXAM: VITAL SIGNS: Reviewed CONSTITUTIONAL: Well developed and in no acute distress. EYES: Conjuctivae without sclera icterus. Extraocular movements grossly intact. HEAD, EARS, NOSE, THROAT: Moist buccal mucosa. Head is atraumatic, normocephalic. Hears conversational speech. No nasal drainage. NECK: Supple. No gross thyroidomegaly. RESPIRATORY: Non-labored respirations and equal bilateral excursions. CARDIOVASCULAR: Palpable 2+ radial pulses. ABDOMEN: MUSCULOSKELETAL: No gross deformity of the lower extremities noted. No clubbing. No cyanosis. SKIN: Good skin turgor. Well perfused. NEUROLOGIC: Cranial nerves II through XII grossly intact. No focal or lateralizing signs. PSYCH: Appropriate affect. Alert and oriented to person, place and time. CLINICAL LABS: White blood cell count normal at over 8.0. Hemoglobin normal at 12.2. STUDIES: CT of the abdomen and pelvis independent reviewed demonstrating bilateral small bowel containing inguinal hernias. Fat-containing large umbili north hernia identified. This is my independent interpretation. MICROBIOLOGY: Urine culture consistent with normal ariadne. ASSESSMENT: 1. Bilateral inguinal hernias with small bowel 2. Umbilical hernia fat-containing PLAN: 1. Symptomatic abdominal pain, surgical intervention advised for bilateral inguinal hernias 2. Recommend repeat urinalysis and culture for suspected urinary tract infecti on Objective - Vital Signs Vital signs: Vital Signs Temp 98.5 F 03/19/21 08:00 Pulse 95 03/19/21 08:00 Resp 16 03/19/21 08:00 BP 153/77 03/19/21 08:00 Pulse Ox 94 L 03/19/21 08:00 Intake & Output 03/18/21 03/19/21 03/19/21 18:59 06:59 18:59 Intake Total 120 Output Total 400 Balance -280 Intake: Oral 120 Output: Urine 400 Other: Voiding Method External Catheter # Voids 1 - Labs CBC & Chem 7: 03/18/21 05:43 03/18/21 05:43
[2021-03-19] MEDS: LORazepam 2 MG/ML INJ IV PRN (19:12)
[2021-03-19] MEDS: SODIUM CHLORIDE 0.9% 1,000 ML IV SCH (19:33)
[2021-03-20] MEDS: PANTOPRAZOLE 40 MG/10 ML VIAL IVP SCH (07:49)
[2021-03-20] MEDS: HEPARIN SODIUM,PORCINE/PF 5,000 UNIT/0.5 ML SYRINGE SQ SCH ×3 (07:49→23:36)
[2021-03-20] MEDS ORDERED: OLANZapine 10 MG VIAL IM STA ×2 (11:54)
--- NOTE | 2021-03-20 15:22 | P.PN ---
Subjective Progress Note Date: 03/20/21 Hospital course: Patient is a 80-year-old female with a past medical history of GERD and history of bowel perforation in 2019 requiring bowel resection. She presented to the emergency department on 03/15/21 with a chief complaint of abdominal pain. This reportedly began approximately 2-3 days ago and is progressively worsened. Patient was found to have an initial lactic acid of 2.2, she was given bolus of IV fluids resulting in decrease of lactate to 1.4. Urinalysis concerning for infection as it had turbid appearance with protein, blood, leukocytes, and gr eater than 182 WBCs however specimen was contaminated with 18 squamous epithelial cells. Urine culture obtained. CT abdomen and pelvis was completed revealing incarcerated bilateral inguinal hernias containing small bowel loops. Patient admitted under our services with consultation to general surgery. Patient to continue to receive treatment for UTI pending urine culture results. Tentative plan is for surgical repair of incarcerated hernias on 03/21/21. Physical exam: Patient seen and fully evaluated at the bedside this morning. Patient's mentation remains unchanged she continues to be confused to time and situation and does not exhibit understanding of current hospitalization. She continues with outbursts and periods of agitation and yelling out. 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 Patient's at bedside and reports patient's mentation is quite similar to her last hospitali zation in which patient behaved and acted out in the same way and states she even required restraints due to her confusion and combative behaviors. Plans for surgical repair of incarcerated hernias on 03/21/21. Vital signs reviewed and stable. General: Nontoxic, no distress and appears stated age. Derm: Skin warm and dry, normal coloration for ethnicity. Head: Atraumatic, normocephalic and symmetric. Eyes: EOMs intact, no lid lag, and anicteric sclera Mouth: no lip lesions, mucus membranes moist Cardiovascular: regular rate and rhythm with normal S1S2, no murmur, positive posterior tibial pulses bilaterally, and cap refill < 2 seconds. Lungs: Respirations even, regular, and unlabored on room air. Lungs CTA bilaterally, no rhonchi, no rales, no wheezing, and no accessory muscle usage. Abdominal: soft, diffuse abdominal tenderness to palpation, no guarding, no appreciable organomegaly Ext: ROM intact. No gross muscle atrophy, no edema, no contractures Neuro: Speech clear, face symmetrical, speech clear. Equal and strong bowel movement of upper and lower extremities with sensation intact. Psych: Patient alert to person, and place but showing significant confusion to time and situation. Assessment and Plan of Care: Bilateral incarcerated inguinal hernias -Consult to Gen. surgery, tentative plans for surgery on Sunday -Symptomatic care and pain management. -Regular diet, nothing by mouth at midnight plans for surgical repair of incarcerated hernias on 03/21/[address] Langford. Acute encephalopathy present on admission -Safe and supportive care while providing assistance and redirection as needed. -Fall precautions -Family reports patient has history of confusion with combative behaviors and previous hospitalization as well. -Patient afebrile with no signs of infection at this time, we will continue to monitor closely. UTI ruled out, urine culture negative -Urine culture negative. -Macrobid discontinued. -We will continue Bladder management lactic acidosis, resolved GERD -Protonix 40 mg IVP daily. CODE STATUS: full code DVT prophylaxis: heparin Discussed with: Patient and RN, attempts made to call patient's unsucce ssful. Anticipated discharge date: clinical course to determine Anticipated discharge place: Home A total of 45 minutes was spent on the care of this complex patient more than 50% of the time was spent in counseling and care coordination. Objective - Vital Signs Vital signs: Vital Signs Temp 98.4 F 03/20/21 07:15 Pulse 96 03/20/21 07:15 Resp 17 03/20/21 07:15 BP 132/71 03/20/21 07:15 Pulse Ox 96 03/20/21 07:15 Intake & Output 03/19/21 03/20/21 03/20/21 18:59 06:59 18:59 Intake Total 500 Output Total 600 300 Balance -600 200 Intake: Intake, IV Titration 500 Amount Sodium Chloride 0.9% 1, 500 000 ml @ 50 mls/hr IV . Q20H [facility] Rx#:[id number] Output: Urine 600 300 Other: Voiding Method External Catheter External Catheter Diaper - Labs CBC & Chem 7: 03/18/21 05:43 03/18/21 05:43
--- NOTE | 2021-03-20 15:36 | P.PN ---
Subjective Progress Note Date: 03/20/21 CHIEF COMPLAINT: Abdominal pain HISTORY OF PRESENT ILLNESS: The patient is a 80-year-old female admitted 03/16/2021 for generalized abdominal swelling and discomfort. Additional workup demonstrated multiple abdominal hernias. Her pain is controlled. Family is at bedside and concerned about her surgery. They report she had surgery with poor outcomes. She is very confused. ROS: No reports of nausea and vomiting. No fevers or chills. No new chest pain. No productive sputum PHYSICAL EXAM: VITAL SIGNS: Reviewed CONSTITUTIONAL: Well developed and in no acute distress. EYES: Conjuctivae without sclera icterus. Extraocular movements grossly intact. HEAD, EARS, NOSE, THROAT: Moist buccal mucosa. Head is atraumatic, normocephalic. Hears conversational speech. No nasal drainage. NECK: Supple. No gross thyroidomegaly. RESPIRATORY: Non-labored respirations and equal bilateral excursions. CARDIOVASCULAR: Palpable 2+ radial pulses. ABDOMEN: No peritonitis MUSCULOSKELETAL: No gross deformity of the lower extremities noted. No clubbing. No cyanosis. SKIN: Good skin turgor. Well perfused. NEUROLOGIC: Cranial nerves II through XII grossly intact. No focal or lateralizing signs. PSYCH: Appropriate affect. Alert and oriented to person, place and time. CLINICAL LABS: No new labs. ASSESSMENT: 1. Bilateral inguinal hernias with small bowel 2. Umbilical hernia fat-containing 3. Delirium PLAN: 1. Family and patient had questions regarding surgical approach and to be deferred to her surgeon. 2. She is off all antibiotics 3. Recommend medical management for delirium 4. Surgical intervention for incarcerated bilateral inguinal hernia and umbilical hernia advised. 5. She is elevated risk with pre-existing condition and prior open abdominal surgery with sequelae. Objective - Vital Signs Vital signs: Vital Signs Temp 98.4 F 03/20/21 07:15 Pulse 96 03/20/21 07:15 Resp 17 03/20/21 07:15 BP 132/71 03/20/21 07:15 Pulse Ox 96 03/20/21 07:15 Intake & Output 03/19/21 03/20/21 03/20/21 18:59 06:59 18:59 Intake Total 500 Output Total 600 300 Balance -600 200 Intake: Intake, IV Titration 500 Amount Sodium Chloride 0.9% 1, 500 000 ml @ 50 mls/hr IV . Q20H [facility] Rx#:[id number] Output: Urine 600 300 Other: Voiding Method External Catheter External Catheter Diaper - Labs CBC & Chem 7: 03/18/21 05:43 03/18/21 05:43 Assessment and Plan (1) Umbilical hernia Current Visit: Yes Status: Acute Code(s): K42.9 - UMBILICAL HERNIA WITHOUT OBSTRUCTION OR GANGRENE SNOMED Code(s): 452412035 (2) Delirium Current Visit: Yes Status: Acute Code(s): R41.0 - DISORIENTATION, UNSPECIFIED SNOMED Code(s): 7728192 (3) Bilateral inguinal hernia Current Visit: Yes Status: Acute Code(s): K40.20 - BI INGUINAL HERNIA, W/O OBST OR GANGRENE, NOT SPCF RECUR SNOMED Code(s): 32212214
[2021-03-20] MEDS: SODIUM CHLORIDE 0.9% 1,000 ML IV SCH (17:20)
[2021-03-21 04:34] LABS: Basophils # (A) 0.1 k/uL (0-0.2); Basophils % (A) 1 %; Eosinophils # (A) 0.2 k/uL (0-0.7); Eosinophils % (A) 3 %; HCT 36.5 % (34.0-46.0); HGB 12.3 gm/dL (11.4-16.0); Lymphocytes # (A) 1.5 k/uL (1.0-4.8); Lymphocytes % (A) 20 %; MCH 31.8 pg (25.0-35.0); MCHC 33.8 g/dL (31.0-37.0); MCV 94.2 fL (80.0-100.0); Mean Platelet Volume 9.5; Monocytes # (A) 0.6 k/uL (0-1.0); Monocytes % (A) 8 %; Neutrophils % (A) 66 %; Platelet Count 233 k/uL (150-450); RBC 3.88 m/uL (3.80-5.40); RDW 13.3 % (11.5-15.5); WBC 7.6 k/uL (3.8-10.6)
[2021-03-21 04:56] LABS: African American GFR (CKD) >90 (>60 ml/min/1.73 sqM); Anion Gap 8 mmol/L; Blood Urea Nitrogen 13 mg/dL (7-17); Calcium 9.9 mg/dL (8.4-10.2); Carbon Dioxide 23 mmol/L (22-30); Chloride 107 mmol/L (98-107); Glucose 124 mg/dL (74-99); Non-African American GFR(CKD) 83 (>60 ml/min/1.73 sqM); Potassium 3.8 mmol/L (3.5-5.1); Sodium 138 mmol/L (137-145)
[2021-03-21] MEDS: PANTOPRAZOLE 40 MG/10 ML VIAL IVP SCH (07:30)
--- NOTE | 2021-03-21 09:04 | P.PN ---
Subjective Progress Note Date: 03/21/21 Hospital course: Patient is a 80-year-old female with a past medical history of GERD and history of bowel perforation in 2019 requiring bowel resection. She presented to the emergency department on 03/15/21 with a chief complaint of abdominal pain. This reportedly began approximately 2-3 days ago and is progressively worsened. Patient was found to have an initial lactic acid of 2.2, she was given bolus of IV fluids resulting in decrease of lactate to 1.4. Urinalysis concerning for infection as it had turbid appearance with protein, blood, leukocytes, and gr eater than 182 WBCs however specimen was contaminated with 18 squamous epithelial cells. Urine culture obtained. CT abdomen and pelvis was completed revealing incarcerated bilateral inguinal hernias containing small bowel loops. Patient admitted under our services with consultation to general surgery. Patient to continue to receive treatment for UTI pending urine culture results. Tentative plan is for surgical repair of incarcerated hernias on 03/21/21. Physical exam: Patient seen and fully evaluated at the bedside this morning. Patient's mentation remains unchanged she continues to be confused to time and situation and does not exhibit understanding of current hospitalization. She continues with outbursts and periods of agitation and yelling out. This morning patient yelling at at bedside. Patient is scheduled for surgical repair of her bilateral incarcerated hernias later this afternoon with Dr Langford. Vital signs reviewed and stable. General: Nontoxic, no distress and appears stated age. Derm: Skin warm and dry, normal coloration for ethnicity. Head: Atraumatic, normocephalic and symmetric. Eyes: EOMs intact, no lid lag, and anicteric sclera Mouth: no lip lesions, mucus membranes moist Cardiovascular: regular rate and rhythm with normal S1S2, no murmur, positive posterior tibial pulses bilaterally, and cap refill < 2 seconds. Lungs: Respirations even, regular, and unlabored on room air. Lungs CTA bilaterally, no rhonchi, no rales, no wheezing, and no accessory muscle usage. Abdominal: soft, diffuse abdominal tenderness to palpation, no guarding, no appreciable organomegaly Ext: ROM intact. No gross muscle atrophy, no edema, no contractures Neuro: Speech clear, face symmetrical, speech clear. Equal and strong bowel movement of upper and lower extremities with sensation intact. Psych: Patient alert to person, and place but showing significant confusion to time and situation. Assessment and Plan of Care: Bilateral incarcerated inguinal hernias -Gen. surgery following plans for surgical repair of bilateral incarcerated hernias today with Dr. Langford -Symptomatic care and pain management. -Postoperative Diet to be advanced as directed by general surgery. Acute metabolic encephalopathy present on admission possibly resulting from delirium as family reports pt with similar episode with last hospital admission -Safe and supportive care while providing assistance and redirection as needed. -Fall precautions -Family reports patient has history of confusion with combative behaviors and previous hospitalization as well. -Patient afebrile with no signs of acute infection at this time, we will continue to monitor closely. UTI ruled out, urine culture negative -Urine culture negative. -Macrobid discontinued. -We will continue Bladder management Lactic acidosis, resolved GERD -GI prophylaxis with Protonix 40 mg IVP daily. CODE STATUS: full code DVT prophylaxis: heparin Discussed with: Patient, patient's and RN. Anticipated discharge date: clinical course to determine Anticipated discharge place: Home A total of 45 minutes was spent on the care of this complex patient more than 50% of the time was spent in counseling and care coordination. Objective - Vital Signs Vital signs: Vital Signs Temp 98.6 F 03/21/21 06:50 Pulse 92 03/21/21 06:50 Resp 16 03/21/21 06:50 BP 132/70 03/21/21 06:50 Pulse Ox 97 03/21/21 06:50 Intake & Output 03/20/21 03/21/21 03/21/21 18:59 06:59 18:59 Intake Total 500 Balance 500 Intake: Intake, IV Titration 500 Amount Sodium Chloride 0.9% 1, 500 000 ml @ 50 mls/hr IV . Q20H [facility] Rx#:[id number] Other: Voiding Method Diaper Diaper # Voids 3 2 # Bowel Movements 1 - Labs CBC & Chem 7: 03/21/21 04:22 03/21/21 04:22 Labs: Abnormal Lab Results - Last 24 Hours (Table) 03/21/21 Range/Units 04:22 Glucose 124 H (74-99) mg/dL
[2021-03-21] MEDS: LORazepam 2 MG/ML INJ IV PRN ×2 (09:10→21:45)
[2021-03-21] MEDS: HEPARIN SODIUM,PORCINE/PF 5,000 UNIT/0.5 ML SYRINGE SQ SCH ×3 (10:35→23:57)
[2021-03-21] MEDS: SODIUM CHLORIDE 0.9% 1,000 ML IV SCH (11:50)
[2021-03-21] MEDS ORDERED: LIDOCAINE 1% (10MG/ML) FOR IV START INTRADERMA PRN (12:49)
[2021-03-21] MEDS ORDERED: HYDROmorphone 0.5 MG/0.5 ML SYRINGE IVP PRN (12:49)
[2021-03-21] MEDS ORDERED: DEXAMETHASONE SOD PHOSPHATE 4 MG/ML 1 ML VIAL IV ONE (12:49)
[2021-03-21] MEDS ORDERED: MIDAZOLAM 2 MG/2 ML VIAL IV PRN (12:49)
[2021-03-21] MEDS ORDERED: ONDANSETRON 4 MG/2 ML VIAL IVP ONE (12:49)
[2021-03-21] MEDS: LACTATED RINGERS 1,000 ML IV SCH (13:30)
--- NOTE | 2021-03-21 13:48 | CDI ---
Documentation Clarification Form Date: 03/21/2021 01:17:23 PM From: Edie Naik RN CCDS Admit Date: 03/17/2021 02:08:00 PM Patient Name: Sylvia Salgado Visit Number: [id number] Discharge Date: ATTENTION: The Clinical Documentation Specialists (CDI) and [facility] Coding Staff appreciate your assistance in clarifying documentation. Please respond to the clarification below the line at the bottom and electronically sign. The CDI & [facility] Coding staff will review the response and follow-up if needed. Please note: Queries are made part of the Legal Health Record. If you have any questions, please contact the author of this message via ITS. Dr. Doc Soto Encephalopathy is documented 03/21, Medicine progress note. Additional clarification regarding the type of encephalopathy is requested. History/Risk Factors: 80-year-old female presents to the ED with abdominal pain and swelling. Medical History: GERD and bowel perforation 2019. 03/16 [facility] Clinical Indicators: Vss: 03/15 B/P 160/77; HR 82; Temp 98.1 Oral F; RR 16; SpO2 96% ra Labs: 03/16 Wbc 9.5; Lactic acid 2.2; Cr Kinase 144; UA: Appearance Turbid, Protein 1+, blood small, Leukocyte Esterase Large, Wbc >182. Treatment: 03/16 Ativan Q4HR Anxiety PRN, 03/21 Versed 2mg IV x1 Anxiety PRN, 03/16 Levofloxacin 500mg IVPB x 1, Levofloxacin 500mg IVPB Q24H DANDY d/c 03/17. 03/16 Metronidazole 500mg VIBP x 1, 03/16 Macrobid 100mg PO BID DANDY d/c 03/19. 03/17 Seroquel 25mg PO x 1. Please clarify the type of encephalopathy, if known: [ ] Metabolic Encephalopathy [ ] Other, please specify [ X ] Unable to determine (Template Last Revised: October 2020) MTDD
[2021-03-21] MEDS ORDERED: BUPIVACAINE (PF) 0.25% 30 ML VIAL SQ ONE ×2 (14:11→15:01)
[2021-03-21] MEDS ORDERED: LIDOCAINE 1% INJ 10MG/ML (20 ML MDV) ONE (14:22)
[2021-03-21] MEDS ORDERED: ROCURONIUM 10 MG/ML (5 ML VIAL) IV ONE (14:22)
[2021-03-21] MEDS ORDERED: GLYCOPYRROLATE 0.2 MG/ML 2 ML VIAL ONE (14:22)
[2021-03-21] MEDS ORDERED: fentaNYL (PF) 50 MCG/ML 2 ML AMP ONE (14:22)
[2021-03-21] MEDS ORDERED: KETOROLAC 15 MG/ML 1 ML VIAL ONE (14:22)
[2021-03-21] MEDS ORDERED: SUCCINYLCHOLINE CHLORIDE 100 MG/5 ML SYR IV ONE (14:22)
[2021-03-21] MEDS ORDERED: PROPOFOL 10 MG/ML 20 ML VIAL IV ONE (14:22)
[2021-03-21] MEDS ORDERED: HEPARIN SODIUM,PORCINE 5,000 UNIT/ML 1 ML VIAL ONE (14:22)
[2021-03-21] MEDS ORDERED: NEOSTIGMINE 1 MG/ML 10 ML VIAL ONE (14:22)
[2021-03-21] MEDS ORDERED: SODIUM CHLORIDE 0.9% 100 ML with ceFAZolin 2,000 MG IV ONE ×2 (14:25)
[2021-03-21] MEDS ORDERED: LACTATED RINGERS 1,000 ML IV ONE (15:16)
--- NOTE | 2021-03-21 15:22 | P.OP ---
Date of Procedure: 03/21/21 Preoperative Diagnosis: Bilateral incarcerated inguinal hernias Umbilical hernia Postoperative Diagnosis: Same Procedure(s) Performed: Repair of bilateral inguinal hernia mesh with Prolene hernia mesh system plug Repair of umbilical hernia Anesthesia: JOSIE Surgeon: Juan Langford Pathology: none sent (5) Condition: stable Disposition: PACU Description of Procedure: DESCRIPTION OF PROCEDURE: The patient was placed in the supine position after receiving adequate anesthesia. Patients right groin was prepped and draped in the usual sterile fashion. A standard hernia incision was made in the right groin. and the subcutaneous tissues were divided with electrocautery. The fascia of the external oblique was exposed. A savage the fascia was made with #15 blade. The fascia was then opened with pair of Metzenbaum scissors. A Weitlaner retractor was placed in the wound and the hernia sac was then dissected free from the round ligament. The round ligament was then divided. . The hernial sac was seen on the anterior-medial portion of the cord and this was dissected free from the cord. The hernia sac was then invaginated to the peritoneal cavity. Using blunt finger dissection, the preperitoneal space was dissected and then the Prolene hernial mesh plug was placed into the prepared space. The inferior leaf was expanded. The superior leaf was secured to the pubic tubercle using 2-0 Prolene suture. The lateral portion of the superior leaf was incised and cords tied and secured to the transversalis fascia using 2- 0 Prolene suture. Fascia of the external oblique was then closed using #0 Vicryl suture. Th. The Scarpas fascia was then closed with 3-0 Vicryl suture and skin was closed with 3-0 Monocryl. \\ The left inguinal hernia was repaired in identical fashion. Next the umbilical hernia was repaired. An infraumbilical skin incision was made. Then using left cautery the subcutaneous tissue divided. The resectoscope. The hernia defect was then closed using #1 Ethibond suture. Skin was closed interrupted 3-0 Monocryl suture. Dermabond was applied. Patient top she will was sent to recovery room stable condition. The patient tolerated the procedure well.
[2021-03-21] MEDS: MORPHINE SULFATE 2 MG/ML SYRINGE IV PRN (17:39)
[2021-03-22] MEDS: SODIUM CHLORIDE 0.9% 1,000 ML IV SCH ×2 (05:43→22:58)
[2021-03-22 08:10] LABS: HCT 36.4 % (34.0-46.0); HGB 11.9 gm/dL (11.4-16.0); MCH 30.9 pg (25.0-35.0); MCHC 32.8 g/dL (31.0-37.0); MCV 94.4 fL (80.0-100.0); Mean Platelet Volume 10.2; Platelet Count 260 k/uL (150-450); RBC 3.86 m/uL (3.80-5.40); RDW 13.1 % (11.5-15.5); WBC 8.6 k/uL (3.8-10.6)
[2021-03-22 08:23] LABS: African American GFR (CKD) >90 (>60 ml/min/1.73 sqM); Anion Gap 8 mmol/L; Blood Urea Nitrogen 17 mg/dL (7-17); Calcium 10.2 mg/dL (8.4-10.2); Carbon Dioxide 23 mmol/L (22-30); Chloride 108 mmol/L (98-107); Glucose 119 mg/dL (74-99); Non-African American GFR(CKD) 85 (>60 ml/min/1.73 sqM); Potassium 4.4 mmol/L (3.5-5.1); Sodium 139 mmol/L (137-145)
[2021-03-22] MEDS: PANTOPRAZOLE 40 MG/10 ML VIAL IVP SCH (10:18)
[2021-03-22] MEDS: HEPARIN SODIUM,PORCINE/PF 5,000 UNIT/0.5 ML SYRINGE SQ SCH ×3 (10:18→22:57)
--- NOTE | 2021-03-22 10:22 | P.PN ---
Subjective Progress Note Date: 03/22/21 Hospital course: Patient is a 80-year-old female with a past medical history of GERD and history of bowel perforation in 2019 requiring bowel resection. She presented to the emergency department on 03/15/21 with a chief complaint of abdominal pain. This reportedly began approximately 2-3 days ago and is progressively worsened. Patient was found to have an initial lactic acid of 2.2, she was given bolus of IV fluids resulting in decrease of lactate to 1.4. Urinalysis concerning for infection as it had turbid appearance with protein, blood, leukocytes, and gr eater than 182 WBCs however specimen was contaminated with 18 squamous epithelial cells. Urine culture obtained. CT abdomen and pelvis was completed revealing incarcerated bilateral inguinal hernias containing small bowel loops. Patient admitted under our services with consultation to general surgery. Patient to continue to receive treatment for UTI pending urine culture results. Patient underwent surgical repair of incarcerated hernias on 03/21/21. Physical exam: Patient seen and fully evaluated at the bedside this morning. Patient's mentation slightly improved this morning. She was alert to person, place, and situation. Patient understood that she is postoperative day 1 and was even able to remember the surgeon's name. Patient remains confused to time and per at bedside continues with outbursts and periods of agitation. Eating breakfast this morning and tolerating well. She has not had any episodes of pos toperative nausea or vomiting. Morning labs unremarkable. Vital signs stable. PT/OT to evaluate patient. Vital signs reviewed and stable. General: Nontoxic, no distress and appears stated age. Derm: Skin warm and dry, normal coloration for ethnicity. Head: Atraumatic, normocephalic and symmetric. Eyes: EOMs intact, no lid lag, and anicteric sclera Mouth: no lip lesions, mucus membranes moist Cardiovascular: regular rate and rhythm with normal S1S2, no murmur, positive posterior tibial pulses bilaterally, and cap refill < 2 seconds. Lungs: Respirations even, regular, and unlabored on room air. Lungs CTA bilaterally, no rhonchi, no rales, no wheezing, and no accessory muscle usage. Abdominal: soft, diffuse abdominal tenderness to palpation, no guarding, no appreciable organomegaly Ext: ROM intact. No gross muscle atrophy, no edema, no contractures Neuro: Speech clear, face symmetrical, speech clear. Equal and strong bowel movement of upper and lower extremities with sensation intact. Psych: Patient alert to person, and place but showing significant confusion to time and situation. Assessment and Plan of Care: Bilateral incarcerated inguinal hernias -Gen. surgery following patient underwent surgical repair of bilateral incarcerated hernias on 03/21/[address] Langford. -Symptomatic care and pain management. Acute metabolic encephalopathy present on admission possibly resulting from delirium as family reports pt with similar episode with last hospital admission, improving -Safe and supportive care while providing assistance and redirection as needed. -Fall precautions -Family reports patient has history of confusion with combative behaviors and previous hospitalization as well. -Patient remains afebrile with no signs of acute infection at this time, we will continue to monitor closely. UTI ruled out, urine culture negative -Urine culture negative. -Macrobid discontinued. -We will continue Bladder management Lactic acidosis, resolved GERD -GI prophylaxis with Protonix 40 mg IVP daily. CODE STATUS: full code DVT prophylaxis: heparin Discussed with: Patient, patient's and RN. Anticipated discharge date: clinical course to determine Anticipated discharge place: Home A total of 45 minutes was spent on the care of this complex patient more than 50% of the time was spent in counseling and care coordination. Objective - Vital Signs Vital signs: Vital Signs Temp 98.2 F 03/22/21 07:49 Pulse 95 03/22/21 07:49 Resp 16 03/22/21 07:49 BP 139/67 03/22/21 07:49 Pulse Ox 98 03/22/21 07:49 Intake & Output 03/21/21 03/22/21 03/22/21 18:59 06:59 18:59 Intake Total 800 875 Output Total 5 1000 Balance 795 -125 Weight 58.967 kg Intake: IV 800 Intake, IV Titration 875 Amount Sodium Chloride 0.9% 1, 875 000 ml @ 50 mls/hr IV . Q20H [facility] Rx#:[id number] Output: Urine 1000 Estimated Blood Loss 5 Other: Voiding Method Diaper # Voids 4 2 - Labs CBC & Chem 7: 03/22/21 07:48 03/22/21 07:48 Labs: Abnormal Lab Results - Last 24 Hours (Table) 03/22/21 Range/Units 07:48 Chloride 108 H (98-107) mmol/L Glucose 119 H (74-99) mg/dL
[2021-03-22] MEDS ORDERED: IBUPROFEN 600 MG TAB PO PRN (11:02)
[2021-03-22] MEDS ORDERED: ACETAMINOPHEN TAB 325 MG TAB PO PRN (11:02)
[2021-03-22] MEDS: LACTATED RINGERS 1,000 ML IV SCH (12:06)
--- NOTE | 2021-03-22 13:31 | P.PN ---
Subjective Progress Note Date: 03/22/21 CHIEF COMPLAINT: Abdominal discomfort and bloating HISTORY OF PRESENT ILLNESS: Patient is status post repair of bilateral inguinal hernia with Prolene mesh system plug and repair of umbilical hernia. Patient denies any abdominal pain. Denies any nausea or vomiting. She is tolerating diet. No bowel movement reported. Afebrile. WBC 8.6 hemoglobin 11.9 PHYSICAL EXAM: VITAL SIGNS: Reviewed. GENERAL: Well-developed in no acute distress. HEENT: No sclera icterus. Extraocular movements grossly intact. Moist buccal mucosa. Head is atraumatic, normocephalic. ABDOMEN: Soft. Nondistended. Incision sites clean dry and intact NEUROLOGIC: Confused ASSESSMENT: 1. Incarcerated bilateral inguinal hernias containing small bowel loops status post repair of bilateral inguinal hernia with Prolene mesh system plug and repair of umbilical hernia 2. Umbilical hernia containing fat PLAN: -Patient is stable from surgical standpoint for discharge -Added Tylenol and Motrin as needed for pain -Continue regular diet Physician Stake Driver note has been reviewed by physician. Signing provider agrees with the documented findings, assessment, and plan of care. Objective - Vital Signs Vital signs: Vital Signs Temp 98.2 F 03/22/21 07:49 Pulse 95 03/22/21 07:49 Resp 16 03/22/21 07:49 BP 139/67 03/22/21 07:49 Pulse Ox 98 03/22/21 07:49 Intake & Output 03/21/21 03/22/21 03/22/21 18:59 06:59 18:59 Intake Total 800 875 Output Total 5 1000 Balance 795 -125 Weight 58.967 kg Intake: IV 800 Intake, IV Titration 875 Amount Sodium Chloride 0.9% 1, 875 000 ml @ 50 mls/hr IV . Q20H [facility] Rx#:[id number] Output: Urine 1000 Estimated Blood Loss 5 Other: Voiding Method Diaper Incontinent # Voids 4 2 - Labs CBC & Chem 7: 03/22/21 07:48 03/22/21 07:48 Labs: Abnormal Lab Results - Last 24 Hours (Table) 03/22/21 Range/Units 07:48 Chloride 108 H (98-107) mmol/L Glucose 119 H (74-99) mg/dL
[2021-03-23] MEDS: LORazepam 2 MG/ML INJ IV PRN (01:26)
[2021-03-23] MEDS: PANTOPRAZOLE 40 MG/10 ML VIAL IVP SCH (08:40)
[2021-03-23] MEDS: HEPARIN SODIUM,PORCINE/PF 5,000 UNIT/0.5 ML SYRINGE SQ SCH ×3 (08:40→23:41)
[2021-03-23] MEDS: LACTATED RINGERS 1,000 ML IV SCH (08:45)
[2021-03-23 09:04] VITALS: RESP 18
--- NOTE | 2021-03-23 14:07 | P.PN ---
<Joanna Ashford - Last Filed: 03/23/21 14:05> Subjective Progress Note Date: 03/23/21 CHIEF COMPLAINT: Abdominal discomfort and bloating HISTORY OF PRESENT ILLNESS: Patient is status post repair of bilateral inguinal hernia with Prolene mesh system plug and repair of umbilical hernia. Patient denies any abdominal pain. Denies any nausea or vomiting. She is tolerating diet. No bowel movement reported. He is still confused. Afebrile. Heart rate 102 WBC 8.6 hemoglobin 11.9 yesterday labs PHYSICAL EXAM: VITAL SIGNS: Reviewed. GENERAL: Well-developed in no acute distress. HEENT: No sclera icterus. Extraocular movements grossly intact. Moist buccal mucosa. Head is atraumatic, normocephalic. ABDOMEN: Soft. Nondistended. Incision sites clean dry and intact NEUROLOGIC: Confused ASSESSMENT: 1. Incarcerated bilateral inguinal hernias containing small bowel loops status post repair of bilateral inguinal hernia with Prolene mesh system plug and repair of umbilical hernia 2. Umbilical hernia containing fat PLAN: -Patient is stable from surgical standpoint for discharge -Continue regular diet Physician Ginseng Farmer note has been reviewed by physician. Signing provider agrees with the documented findings, assessment, and plan of care. Objective - Vital Signs Vital signs: Vital Signs Temp 97.4 F L 03/23/21 08:00 Pulse 102 H 03/23/21 08:00 Resp 18 03/23/21 08:00 BP 134/78 03/23/21 08:00 Pulse Ox 98 03/23/21 08:00 Intake & Output 03/22/21 03/23/21 03/23/21 18:59 06:59 18:59 Intake Total 900 Output Total 250 Balance -250 900 Intake: Intake, IV Titration 420 Amount Lactated Ringers 1,000 ml 120 @ 20 mls/hr IV .Q24H [facility] Rx#:[id number] Sodium Chloride 0.9% 1, 300 000 ml @ 50 mls/hr IV . Q20H [facility] Rx#:[id number] Oral 480 Output: Urine 250 Other: Voiding Method Incontinent Diaper Diaper Incontinent Incontinent External Catheter External Catheter # Voids 2 1 - Labs CBC & Chem 7: 03/22/21 07:48 03/22/21 07:48 <Yayo Gray - Last Filed: 03/23/21 18:35> Subjective As above. Patient doing better at this time. Await transfer to rehabilitation. Objective - Vital Signs Vital signs: Vital Signs Temp 97.5 F L 03/23/21 13:44 Pulse 100 03/23/21 13:44 Resp 18 03/23/21 13:44 BP 102/61 03/23/21 13:44 Pulse Ox 98 03/23/21 13:44 Intake & Output 03/22/21 03/23/21 03/23/21 18:59 06:59 18:59 Intake Total 900 360 Output Total 250 Balance -250 900 360 Weight 58.967 kg Intake: Intake, IV Titration 420 Amount Lactated Ringers 1,000 ml 120 @ 20 mls/hr IV .Q24H [facility] Rx#:[id number] Sodium Chloride 0.9% 1, 300 000 ml @ 50 mls/hr IV . Q20H [facility] Rx#:[id number] Oral 480 360 Output: Urine 250 Other: Voiding Method Incontinent Diaper Diaper Incontinent Incontinent External Catheter External Catheter # Voids 2 4 - Labs CBC & Chem 7: 03/22/21 07:48 03/22/21 07:48
[2021-03-23 14:58] VITALS: BMI 23.0
--- NOTE | 2021-03-23 16:45 | P.PN ---
Subjective Progress Note Date: 03/23/21 Principal diagnosis: belly pain Patient is a 80-year-old female history of GERD, prior bowel perforation, and pneumonia who presented to the ER with complaints of abdominal swelling and discomfort. In the ER she underwent an extensive evaluation was subsequently diagnosed with urinary tract infection and bilateral incarcerated inguinal hernias. CT abdomen and pelvis demonstrated incarcerated bilateral inguinal hernias containing small bowel loops without mechanical small bowel obstructions, significantly increased compared to computed tomography scan of 09/20/20. She was initially started on Levaquin which was subsequently changed to Macrobid. She was seen by surgery on 03/17 and arrangements were made for operative repair of incarcerated hernias on 03/21. Her urine culture came back negative and antibiotics were subsequently discontinued. Patient underwent repair of bilateral inguinal hernia as with mesh and umbilical hernia repair on 03/21/21. She had also been struggling with acute encephalopathy. Patient seen and examined at bedside. She initially denies belly pain but then aspirin upset her stomach due to pain. She denies chest pain or shortness of breath. She is very talkative but it is a difficult conversation to follow. She discusses her daughter, their careers and then does not seem to understand that she is in the hospital. General: non toxic, no distress, appears at stated age Derm: warm, dry Head: atraumatic, normocephalic, symmetric Eyes: EOMI, no lid lag, anicteric sclera Mouth: no lip lesion, mucus membranes moist Cardiovascular: S1S2 reg, no murmur, positive posterior tibial pulse bilateral, Lungs: Decreased breath sounds bilateral, no rhonchi, no rales , no accessory muscle use Abdominal: soft, +tender to palpation, no guarding, no appreciable organomegaly Ext: no gross muscle atrophy, no edema, no contractures Neuro: CN II-XI grossly intact, no focal neuro deficits Psych: Alert, oriented to self and intermittently situation, overly vivacious Bilateral incarcerated inguinal hernias -General surgery recommendations -Pain control Acute metabolic encephalopathy -Safe supportive environment -Fall precautions -Probable undiagnosed dementia. GERD -PPI UTI ruled out, bacteriuria Lactic acidosis, resolved Anticipated discharge in a.m., still have not been accepted to [facility] Objective - Vital Signs Vital signs: Vital Signs Temp 97.8 F 03/23/21 03:15 Pulse 102 H 03/23/21 03:15 Resp 19 03/23/21 03:15 BP 130/55 03/23/21 03:15 Pulse Ox 96 03/23/21 03:15 Intake & Output 03/22/21 03/23/21 03/23/21 18:59 06:59 18:59 Intake Total 900 Output Total 250 Balance -250 900 Intake: Intake, IV Titration 420 Amount Lactated Ringers 1,000 ml 120 @ 20 mls/hr IV .Q24H [facility] Rx#:[id number] Sodium Chloride 0.9% 1, 300 000 ml @ 50 mls/hr IV . Q20H [facility] Rx#:[id number] Oral 480 Output: Urine 250 Other: Voiding Method Incontinent Diaper Incontinent External Catheter # Voids 2 - Labs CBC & Chem 7: 03/22/21 07:48 03/22/21 07:48 Labs: Abnormal Lab Results - Last 24 Hours (Table) 03/22/21 Range/Units 07:48 Chloride 108 H (98-107) mmol/L Glucose 119 H (74-99) mg/dL
[2021-03-23] MEDS: SODIUM CHLORIDE 0.9% 1,000 ML IV SCH (23:41)
[2021-03-24 02:48] VITALS: PULSE 85
[2021-03-24 09:03] VITALS: BP 146/68; TEMP 98.3
[2021-03-24] MEDS: PANTOPRAZOLE 40 MG/10 ML VIAL IVP SCH (09:16)
[2021-03-24] MEDS: HEPARIN SODIUM,PORCINE/PF 5,000 UNIT/0.5 ML SYRINGE SQ SCH (09:16)
--- NOTE | 2021-03-24 11:13 | P.DS ---
Providers Date of admission: 03/17/21 14:08 Expected date of discharge: 03/24/21 Attending physician: Lauro Ashton MD Consults: 03/16/21 03:30 Consult Physician Routine Consulting Provider: Juan Langford Consult Reason/Comments: BL hernia Do you want consulting provider notified?: Yes Primary care physician: Soy Black [facility] Course: Discharge Diagnosis: Bilateral incarcerated inguinal hernias Acute metabolic encephalopathy GERD UTI ruled out, bacteriuria Lactic acidosis, resolved Hospital Course: Patient is a 80-year-old female history of GERD, prior bowel perforation, and pneumonia who presented to the ER with complaints of abdominal swelling and discomfort. In the ER she underwent an extensive evaluation was subsequently diagnosed with urinary tract infection and bilateral incarcerated inguinal hernias. CT abdomen and pelvis demonstrated incarcerated bilateral inguinal hernias containing small bowel loops without mechanical small bowel obstructions, significantly increased compared to computed tomography scan of 09/20/20. She was initially started on Levaquin which was subsequently changed to Macrobid. She was seen by surgery on 03/17 and arrangements were made for operative repair of incarcerated hernias on 03/21. Her urine culture came back negative and antibiotics were subsequently discontinued. Patient underwent repair of bilateral inguinal hernia as with mesh and umbilical hernia repair on 03/21/21. She had also been struggling with acute encephalopathy. Patient seen and examined at bedside. She states that her pain is better is after tylenol. No chest pain, no shortness of breath Vital signs reviewed and stable. General: non toxic, no distress, appears at stated age Derm: warm, dry Head: atraumatic, normocephalic, symmetric Eyes: EOMI, no lid lag, anicteric sclera Mouth: no lip lesion, mucus membranes moist Cardiovascular: S1S2 reg, no murmur, positive posterior tibial pulse bilateral, Lungs: CTA bilateral, no rhonchi, no rales , no accessory muscle use Abdominal: soft, + tender to palpation, no guarding, no appreciable organomegaly Ext: no gross muscle atrophy, no edema, no contractures Neuro: CN II-XI grossly intact, no focal neuro deficits Psych: Alert, oriented, still with confusion and tangential thinking A total of 35 minutes of time were spent preparing this complex discharge summary . Patient Condition at Discharge: Stable Plan - Discharge Summary Discharge Rx Participant: Yes New Discharge Prescriptions: New Ibuprofen [Motrin] 600 mg PO TID PRN tab PRN Reason: Pain Acetaminophen Tab [Tylenol Tab] 500 mg PO Q8H 5 Days tablet Continue Pantoprazole [Protonix] 40 mg PO W/BRKFST Discontinued Hydrochlorothiazide [hydroCHLOROthiazide] 12.5 mg PO W/BRKFST Discharge Medication List Pantoprazole [Protonix] 40 mg PO W/BRKFST 03/16/21 [History] Acetaminophen Tab [Tylenol Tab] 500 mg PO Q8H 5 Days tablet 03/24/21 [Rx] Ibuprofen [Motrin] 600 mg PO TID PRN tab 03/24/21 [Rx] Follow up Appointment(s)/Referral(s): Soy Scruggs MD [Primary Care Provider] - 1-2 days [facility] [NON-STAFF] - As Needed Juan Langford MD [STAFF PHYSICIAN] - 1 Week Activity/Diet/Wound Care/Special Instructions: Activity: as tolerated Diet: heart healthy Special Instructions: Tylenol 500 mg every 8 hours for 5 days Discharge Disposition: TRANSFER TO SNF/ECF
--- NOTE | 2021-03-24 12:14 | P.PN ---
<Joanna Ashford - Last Filed: 03/24/21 12:13> Subjective Progress Note Date: 03/24/21 CHIEF COMPLAINT: Abdominal discomfort and bloating HISTORY OF PRESENT ILLNESS: Patient is status post repair of bilateral inguinal hernia with Prolene mesh system plug and repair of umbilical hernia. Patient denies any abdominal pain. Denies any nausea or vomiting. She is tolerating diet. Patient reports having a bowel movement. She is still confused. Afebrile. PHYSICAL EXAM: VITAL SIGNS: Reviewed. GENERAL: Well-developed in no acute distress. HEENT: No sclera icterus. Extraocular movements grossly intact. Moist buccal mucosa. Head is atraumatic, normocephalic. ABDOMEN: Soft. Nondistended. Incision sites clean dry and intact NEUROLOGIC: Confused ASSESSMENT: 1. Incarcerated bilateral inguinal hernias containing small bowel loops status post repair of bilateral inguinal hernia with Prolene mesh system plug and repair of umbilical hernia 2. Umbilical hernia containing fat PLAN: -Patient is stable from surgical standpoint for discharge -Continue regular diet -Patient to be discharged to subacute rehab today Physician Admissions Consultant note has been reviewed by physician. Signing provider agrees with the documented findings, assessment, and plan of care. Objective - Vital Signs Vital signs: Vital Signs Temp 98.3 F 03/24/21 07:20 Pulse 85 03/24/21 07:20 Resp 18 03/24/21 07:20 BP 146/68 03/24/21 07:20 Pulse Ox 95 03/24/21 07:20 Intake & Output 03/23/21 03/24/21 03/24/21 18:59 06:59 18:59 Intake Total 360 600 Output Total 500 Balance 360 100 Weight 58.967 kg Intake: Intake, IV Titration 240 Amount Lactated Ringers 1,000 ml 240 @ 20 mls/hr IV .Q24H [facility] Rx#:[id number] Oral 360 360 Output: Urine 500 Other: Voiding Method Diaper Incontinent External Catheter Incontinent External Catheter # Voids 4 - Labs CBC & Chem 7: 03/22/21 07:48 03/22/21 07:48 <Yayo Gray - Last Filed: 03/24/21 16:11> Subjective As above. Stable for discharge from our point of view. Follow-up with Dr. Langford 1 week. Objective - Vital Signs Vital signs: Vital Signs Temp 98.3 F 03/24/21 07:20 Pulse 85 03/24/21 07:20 Resp 18 03/24/21 07:20 BP 146/68 03/24/21 07:20 Pulse Ox 95 03/24/21 07:20 Intake & Output 03/23/21 03/24/21 03/24/21 18:59 06:59 18:59 Intake Total 360 600 Output Total 500 Balance 360 100 Weight 58.967 kg Intake: Intake, IV Titration 240 Amount Lactated Ringers 1,000 ml 240 @ 20 mls/hr IV .Q24H [facility] Rx#:[id number] Oral 360 360 Output: Urine 500 Other: Voiding Method Diaper Incontinent External Catheter Incontinent External Catheter # Voids 4 - Labs CBC & Chem 7: 03/22/21 07:48 03/22/21 07:48
== END 2021-03-24 14:59 | DRG 350 ==
LOC: EC 23:46 → 6NMEDSUR 03-16 03:28 → 5NMEDONC 03-16 03:55 → 6NMEDSUR 03-16 10:40 → OBSVTOIN 03-17 14:08 → 4SSUR 03-18 16:13
PROVIDERS: ADMIT Internal Medicine; ATTEND Internal Medicine
PROC: 0WQF0ZZ Repair Abdominal Wall, Open Approach (ICD-10-PCS; principal; 2021-03-24)
PROC: 0YUA0JZ Supplement Bilateral Inguinal Region with Synthetic Substitute, Open Approach (ICD-10-PCS; 2021-03-24)
PROC: 0YJA4ZZ Inspection of Bilateral Inguinal Region, Percutaneous Endoscopic Approach (ICD-10-PCS; 2021-03-24)
DX: K40.00 Bilateral inguinal hernia, with obstruction, without gangrene, not specified as recurrent (principal); G93.41 Metabolic encephalopathy; E87.2 Acidosis; K42.9 Umbilical hernia without obstruction or gangrene; R82.71 Bacteriuria; K21.9 Gastro-esophageal reflux disease without esophagitis; R41.0 Disorientation, unspecified; Z90.49 Acquired absence of other specified parts of digestive tract; Z88.0 Allergy status to penicillin; Z88.2 Allergy status to sulfonamides; Z87.19 Personal history of other diseases of the digestive system
CPT/HCPCS: 36415; 71045; 74177; 80048; 80053; 81001; 82150; 82550; 83605; 83690; 83735; 84100; 84484; 85025; 85027; 85610; 85730; 87086; 96361; 96374; 99285

== ENCOUNTER 2021-04-30 14:25 | Emergency (ER) | payer MEDICARE ==
[2021-04-30 14:28] VITALS: TEMP 98
[2021-04-30] MEDS ORDERED: LIDOCAINE/EPINEPHR/TETRACAINE 5 ML BOTTLE TOPICAL STA (15:01)
[2021-04-30] MEDS ORDERED: OXYMETAZOLINE 0.05% NASL SPRAY 1 SPRAY BOTTLE NASAL STA (15:01)
--- NOTE | 2021-04-30 15:55 | ED ---
ENT HPI - General Chief complaint: ENT Stated complaint: excessive nosebleed Time Seen by Provider: 04/30/21 15:12 Source: patient, family Mode of arrival: ambulatory Limitations: no limitations - History of Present Illness Initial comments: Patient is a 81-year-old female presenting to emergency Department with complaints of a nosebleed that been going on for about 2 hours. She is not on blood thinners. She states the same thing happened a few days ago, but she was able to stop it after about 15-20 min. She was using kleenex to clean her nose and felt like she scratched her left nostril with her nail a few days ago. Today she noticed a scab in the area when she was cleaning it again, it started bleeding again. Today she is unable to stop on her own. She denies any lightheadedness or dizziness. She denies any fevers or chills, no chest pain or shortness of breath. She has no further complaints at this time. - Related Data Home Medications Medication Instructions Recorded Confirmed Pantoprazole [Protonix] 40 mg PO DAILY 03/16/21 04/30/21 hydroCHLOROthiazide [Hydrodiuril] 12.5 mg PO DAILY 04/30/21 04/30/21 Previous Rx's Medication Instructions Recorded Amoxicillin/Potassium Clav 1 tab PO BID 5 Days #10 tab 04/30/21 [Augmentin 875-125 Tablet] Allergies Allergy/AdvReac Type Severity Reaction Status Date / Time Penicillins Allergy Unknown Verified 04/30/21 16:47 Sulfa (Sulfonamide Allergy Unknown Verified 04/30/21 16:47 Antibiotics) Review of Systems ROS Statement: Those systems with pertinent positive or pertinent negative responses have been documented in the HPI. ROS Other: All systems not noted in ROS Statement are negative. Past Medical History Past Medical History: GERD/Reflux, Pneumonia Additional Past Medical History / Comment(s): bowel perforation 2019, History of Any Multi-Drug Resistant Organisms: None Reported Past Surgical History: Bowel Resection Additional Past Surgical History / Comment(s): left femur surgery, Past Anesthesia/Blood Transfusion Reactions: No Reported Reaction Past Psychological History: Anxiety Smoking Status: Never smoker Past Alcohol Use History: None Reported Past Drug Use History: None Reported - Past Family History Mother Family Medical History: Myocardial Infarction (OR) General Exam - General Exam Comments Initial Comments: GENERAL: Patient is well-developed and well-nourished. Patient is nontoxic and in no acute distress, patient is very anxious about this nosebleed. HEAD: Atraumatic, normocephalic. EYES: Pupils equal round and reactive to light, extraocular movements intact, sclera anicteric, conjunctiva are normal. Eyelids were unremarkable. ENT: Nares patent, oropharynx clear without exudates. Moist mucous membranes. Patient has active nosebleed from the left nostril, there appears to be a small abrasion noted to the inside. NECK: Normal range of motion, supple without lymphadenopathy or JVD. LUNGS: Unlabored respirations. Breath sounds clear to auscultation bilaterally and equal. No wheezes rales or rhonchi. HEART: Regular rate and rhythm without murmurs, rubs or gallops. MUSCULOSKELETAL: Normal extremities with adequate strength and normal range of motion, no pitting or edema. No clubbing or cyanosis. NEUROLOGICAL: Patient is alert and oriented x 3. SKIN: Warm, Dry, normal turgor, no rashes or lesions noted. Limitations: no limitations Course Vital Signs 04/30/21 04/30/21 14:26 18:45 Temperature 98 F Pulse Rate 95 90 Respiratory 20 18 Rate Blood Pressure 167/74 105/60 O2 Sat by Pulse 96 98 Oximetry Procedures - Procedures Initial comment: Nasal packing was performed after several unsuccessful attempts to stop nosebleed. Rhino Rocket with TXA was applied to the left nostril. Patient tolerated procedure well. Medical Decision Making - Medical Decision Making Patient is a 81-year-old female presenting with a nosebleed that started a couple hours before arrival. She was fainting happened a few days ago, was able to stop it after about 15 minutes. She has a small abrasion to the inside aspect of her left nostril. She is not on blood thinners. We did attempt to stop the nosebleed with nose clamp, LET and afrin spray on multiple occasions without success. We then placed a Rhino Rocket soaked with TXA in the left nost ril. Bleeding is controlled this time. Patient will be placed on Augmentin and will follow up with ENT. She has seen Dr. Sarah in the past and requested him. She is stable for discharge, all questions were answered. Case discussed and assisted with with Dr. Vega. Disposition Clinical Impression: Epistaxis Disposition: HOME SELF-CARE Condition: Stable Instructions (If sedation given, give patient instructions): Nosebleed (ED) Additional Instructions: Please return to the Emergency Department if symptoms worsen or any other concerns. Leave packing in place until follow-up with ENT. Take antibiotics as prescribed. Prescriptions: Amoxicillin/Potassium Clav [Augmentin 875-125 Tablet] 1 tab PO BID 5 Days #10 tab Is patient prescribed a controlled substance at d/c from ED?: No Referrals: Soy Scruggs MD [Primary Care Provider] - 1-2 days Randy Hilton MD [STAFF PHYSICIAN] - 1-2 days Time of Disposition: 18:22
[2021-04-30] MEDS ORDERED: TRANEXAMIC ACID 1,000 MG/10 ML VIAL IRRIGATION ONE (17:06)
[2021-04-30 18:46] VITALS: BP 105/60; PULSE 90; RESP 18
== END 2021-04-30 18:46 | disposition home or self-care (01) ==
LOC: EC 14:25
DX: R04.0 Epistaxis (principal); S00.31XA Abrasion of nose, initial encounter; K21.9 Gastro-esophageal reflux disease without esophagitis; Z79.899 Other long term (current) drug therapy; Z82.49 Family history of ischemic heart disease and other diseases of the circulatory system; Z88.0 Allergy status to penicillin; Z88.2 Allergy status to sulfonamides; X58.XXXA Exposure to other specified factors, initial encounter
CPT/HCPCS: 30903; 99283

== ENCOUNTER → 2021-07-18 | Outpatient (CLI) | payer MEDICARE ==
--- NOTE | 2021-07-18 13:37 | US ---
EXAMINATION TYPE: US venous doppler duplex LE LT DATE OF EXAM: 07/18/2021 1:08 PM COMPARISON: NONE CLINICAL HISTORY: R60.0 LOCALIZED EDEMA. SIDE PERFORMED: Left TECHNIQUE: The lower extremity deep venous system is examined utilizing real time linear array sonog tnoie with graded compression, doppler sonography and color-flow sonography. VESSELS IMAGED: Common Femoral Vein Deep Femoral Vein Greater Saphenous Vein * Femoral Vein Popliteal Vein Small Saphenous Vein * Proximal Calf Veins (* superficial vessels) Large lymph node 1.7x1.3cmDifficult due to edema Left Leg: Negative for DVT IMPRESSION: No evidence of DVT
== END | disposition home or self-care (01) ==
LOC: RADUSWWP 12:48
PROVIDERS: ATTEND Family Medicine
DX: R60.0 Localized edema (principal)

== ENCOUNTER 2022-03-06 04:19 | Emergency (ER) | payer MEDICARE ==
[2022-03-06] MEDS ORDERED: ONDANSETRON 4 MG/2 ML VIAL IVP STA (04:25)
[2022-03-06] MEDS ORDERED: SODIUM CHLORIDE 0.9% 1,000 ML IV STA (04:25)
--- NOTE | 2022-03-06 04:26 | ED ---
Nausea/Vomiting/Diarrhea HPI - General Stated complaint: NVD Time Seen by Provider: 03/06/22 04:23 Source: RN notes reviewed, old records reviewed Limitations: no limitations - History of Present Illness Initial comments: This is a 81-year-old female to the emergency department for evaluation. Patient presents today for evaluation of nausea vomiting diarrhea. No travel history no sick contacts no fevers. Patient states symptoms after eating [employer]. No prior history of surgery MD complaint: nausea, vomiting, diarrhea -: hour(s) Description of Vomiting: food contents Associated Abdominal Pain: Yes Location: diffuse Radiation: none Quality: cramping Consistency: intermittent Improves with: none Worsens with: none Context: other (0) Associated Symptoms: loss of appetite, nausea/vomiting, weakness - Related Data Home Medications Medication Instructions Recorded Confirmed Pantoprazole [Protonix] 40 mg PO DAILY 03/16/21 04/30/21 hydroCHLOROthiazide [Hydrodiuril] 12.5 mg PO DAILY 04/30/21 04/30/21 Previous Rx's Medication Instructions Recorded Amoxicillin/Potassium Clav 1 tab PO BID 5 Days #10 tab 04/30/21 [Augmentin 875-125 Tablet] Allergies Allergy/AdvReac Type Severity Reaction Status Date / Time Penicillins Allergy Unknown Verified 04/30/21 16:47 Sulfa (Sulfonamide Allergy Unknown Verified 04/30/21 16:47 Antibiotics) Review of Systems ROS Statement: Those systems with pertinent positive or pertinent negative responses have been documented in the HPI. ROS Other: All systems not noted in ROS Statement are negative. Past Medical History Past Medical History: GERD/Reflux, Pneumonia Additional Past Medical History / Comment(s): bowel perforation 2019, History of Any Multi-Drug Resistant Organisms: None Reported Past Surgical History: Bowel Resection Additional Past Surgical History / Comment(s): left femur surgery, Past Anesthesia/Blood Transfusion Reactions: No Reported Reaction Past Psychological History: Anxiety Smoking Status: Never smoker Past Alcohol Use History: None Reported Past Drug Use History: None Reported - Past Family History Mother Family Medical History: Myocardial Infarction ([place]) General Exam General appearance: alert, in no apparent distress Head exam: Present: atraumatic, normocephalic, normal inspection Eye exam: Present: normal appearance, PERRL, EOMI. Absent: scleral icterus, conjunctival injection, periorbital swelling ENT exam: Present: normal exam, mucous membranes moist Neck exam: Present: normal inspection. Absent: tenderness, meningismus, lymphadenopathy Respiratory exam: Present: normal lung sounds bilaterally. Absent: respiratory distress, wheezes, rales, rhonchi, stridor Cardiovascular Exam: Present: regular rate, normal rhythm, normal heart sounds. Absent: systolic murmur, diastolic murmur, rubs, gallop, clicks GI/Abdominal exam: Present: soft, normal bowel sounds. Absent: distended, tenderness, guarding, rebound, rigid Extremities exam: Present: normal inspection, full ROM, normal capillary refill. Absent: tenderness, pedal edema, joint swelling, calf tenderness Back exam: Present: normal inspection Neurological exam: Present: alert, oriented X3, CN II-XII intact Psychiatric exam: Present: normal affect, normal mood Skin exam: Present: warm, dry, intact, normal color. Absent: rash Course Vital Signs 03/06/22 03/06/22 04:22 06:22 Temperature 98.7 F Pulse Rate 92 79 Respiratory 18 18 Rate Blood Pressure 100/87 123/61 O2 Sat by Pulse 99 98 Oximetry - Reevaluation(s) Reevaluation #1: 03/06/22 Medical record is reviewed Reevaluation #2: 03/06/22 Patient symptoms are improved here in the ER Reevaluation #3: 03/06/22 Patient informed results and questions answered Medical Decision Making - Medical Decision Making 81 female to the emergency department for evaluation positive nausea vomiting and diarrhea. Patient symptoms are improving here in the ER. Patient feels improved here in the ER lab values within normal limits and patient can be discharged home - Lab Data Result diagrams: 03/06/22 04:34 03/06/22 04:34 Lab Results 03/06/22 03/06/22 Range/Units 04:34 04:34 WBC 9.9 (3.8-10.6) k/uL RBC 4.20 (3.80-5.40) m/uL Hgb 12.2 (11.4-16.0) gm/dL Hct 38.8 (34.0-46.0) % MCV 92.5 (80.0-100.0) fL MCH 29.1 (25.0-35.0) pg MCHC 31.5 (31.0-37.0) g/dL RDW 13.8 (11.5-15.5) % Plt Count 260 (150-450) k/uL MPV 9.6 Neutrophils % 85 % Lymphocytes % 8 % Monocytes % 3 % Eosinophils % 2 % Basophils % 0 % Neutrophils # 8.5 H (1.3-7.7) k/uL Lymphocytes # 0.8 L (1.0-4.8) k/uL Monocytes # 0.3 (0-1.0) k/uL Eosinophils # 0.2 (0-0.7) k/uL Basophils # 0.0 (0-0.2) k/uL Sodium 139 (137-145) mmol/L Potassium 4.2 (3.5-5.1) mmol/L Chloride 106 (98-107) mmol/L Carbon Dioxide 26 (22-30) mmol/L Anion Gap 7 mmol/L BUN 22 H (7-17) mg/dL Creatinine 1.12 H (0.52-1.04) mg/dL Est GFR (CKD-EPI)AfAm 54 (>60 ml/min/1.73 sqM) Est GFR (CKD-EPI)NonAf 47 (>60 ml/min/1.73 sqM) Glucose 137 H (74-99) mg/dL Calcium 10.0 (8.4-10.2) mg/dL Total Bilirubin 0.6 (0.2-1.3) mg/dL AST 41 H (14-36) U/L ALT 18 (4-34) U/L Alkaline Phosphatase 102 (38-126) U/L Total Protein 7.5 (6.3-8.2) g/dL Albumin 4.3 (3.5-5.0) g/dL Amylase 104 (30-110) U/L Lipase 120 (23-300) U/L Disposition Clinical Impression: Gastroenteritis Disposition: HOME SELF-CARE Condition: Good Instructions (If sedation given, give patient instructions): Acute Nausea and Vomiting (ED), Acute Diarrhea (ED) Is patient prescribed a controlled substance at d/c from ED?: No Referrals: Soy Scruggs MD [Primary Care Provider] - 1-2 days Time of Disposition: 06:00
[2022-03-06 04:27] VITALS: RESP 18; TEMP 98.7
[2022-03-06 04:39] LABS: Basophils % (A) 0 %; Eosinophils # (A) 0.2 k/uL (0-0.7); Eosinophils % (A) 2 %; HCT 38.8 % (34.0-46.0); HGB 12.2 gm/dL (11.4-16.0); Lymphocytes # (A) 0.8 k/uL (1.0-4.8); Lymphocytes % (A) 8 %; MCH 29.1 pg (25.0-35.0); MCHC 31.5 g/dL (31.0-37.0); MCV 92.5 fL (80.0-100.0); Mean Platelet Volume 9.6; Monocytes # (A) 0.3 k/uL (0-1.0); Monocytes % (A) 3 %; Neutrophils # (A) 8.5 k/uL (1.3-7.7); Neutrophils % (A) 85 %; Platelet Count 260 k/uL (150-450); RDW 13.8 % (11.5-15.5); WBC 9.9 k/uL (3.8-10.6)
[2022-03-06 04:53] LABS: Albumin 4.3 g/dL (3.5-5.0); Potassium 4.2 mmol/L (3.5-5.1); Total Bilirubin 0.6 mg/dL (0.2-1.3); Total Protein 7.5 g/dL (6.3-8.2)
[2022-03-06 06:23] VITALS: BP 123/61; PULSE 79
== END 2022-03-06 06:23 | disposition home or self-care (01) ==
LOC: EC 04:19
DX: K52.9 Noninfective gastroenteritis and colitis, unspecified (principal); K21.9 Gastro-esophageal reflux disease without esophagitis; Z79.899 Other long term (current) drug therapy; Z88.0 Allergy status to penicillin; Z88.2 Allergy status to sulfonamides
CPT/HCPCS: 36415; 80053; 82150; 83690; 85025; 99285; 96374; 96361; J2405

== ENCOUNTER 2022-04-04 12:14 | Inpatient (IN) | payer MEDICARE ==
[2022-04-04] MEDS ORDERED: HYDROmorphone 0.5 MG/0.5 ML SYRINGE IVP STA ×2 (12:45→13:39)
[2022-04-04] MEDS ORDERED: SODIUM CHLORIDE 0.9% 1,000 ML IV ONE (12:45)
--- NOTE | 2022-04-04 12:53 | ED ---
Fall HPI - General Chief Complaint: Fall Stated Complaint: Fall,right side injury Time Seen by Provider: 04/04/22 12:32 Source: patient Mode of arrival: EMS - History of Present Illness Initial Comments: 82-year-old female history of UTI GERD pneumonia and anxiety who uses a walker to walk she was a local store shopping for shoes when she bent over and fell to the ground when she probably lost her balance while bending over. She complains of right shoulder and right hip pain she states she can move her right lower extremity. Does complain some neck pain. No loss of consciousness. She is very anxious upon examination. MD Complaint: fall - Related Data Home Medications Medication Instructions Recorded Confirmed Pantoprazole [Protonix] 40 mg PO DAILY 03/16/21 04/30/21 hydroCHLOROthiazide [Hydrodiuril] 12.5 mg PO DAILY 04/30/21 04/30/21 Previous Rx's Medication Instructions Recorded Amoxicillin/Potassium Clav 1 tab PO BID 5 Days #10 tab 04/30/21 [Augmentin 875-125 Tablet] Allergies Allergy/AdvReac Type Severity Reaction Status Date / Time Penicillins Allergy Unknown Verified 04/30/21 16:47 Sulfa (Sulfonamide Allergy Unknown Verified 04/30/21 16:47 Antibiotics) Review of Systems ROS Statement: Those systems with pertinent positive or pertinent negative responses have been documented in the HPI. ROS Other: All systems not noted in ROS Statement are negative. Past Medical History Past Medical History: GERD/Reflux, Pneumonia Additional Past Medical History / Comment(s): bowel perforation 2019, History of Any Multi-Drug Resistant Organisms: None Reported Past Surgical History: Bowel Resection Additional Past Surgical History / Comment(s): left femur surgery, Past Anesthesia/Blood Transfusion Reactions: No Reported Reaction Past Psychological History: Anxiety Smoking Status: Never smoker Past Alcohol Use History: None Reported Past Drug Use History: None Reported - Past Family History Mother Family Medical History: Myocardial Infarction ([place]) General Exam Limitations: altered mental status General appearance: alert, anxious Head exam: Present: atraumatic, normocephalic, normal inspection Eye exam: Present: normal appearance, PERRL, EOMI. Absent: scleral icterus, conjunctival injection, periorbital swelling ENT exam: Present: mucous membranes dry Neck exam: Present: normal inspection, tenderness (Tennis palpation over the right lateral neck musculature no midline tenderness no midline deformity no step-off or crepitation.), full ROM. Absent: meningismus, lymphadenopathy Respiratory exam: Present: normal lung sounds bilaterally. Absent: respiratory distress, wheezes, rales, rhonchi, stridor Cardiovascular Exam: Present: regular rate, normal rhythm, normal heart sounds. Absent: systolic murmur, diastolic murmur, rubs, gallop, clicks GI/Abdominal exam: Present: soft, normal bowel sounds. Absent: distended, tenderness, guarding, rebound, rigid Extremities exam: Present: tenderness (Palpation of the right hip area no definitive step-off or crepitation), normal capillary refill. Absent: full ROM, pedal edema, joint swelling, calf tenderness Back exam: Present: normal inspection Neurological exam: Present: alert, oriented X3, CN II-XII intact Psychiatric exam: Present: normal affect, anxious Skin exam: Present: warm, dry, intact, normal color. Absent: rash Course Vital Signs 04/04/22 12:20 Temperature 97.5 F L Pulse Rate 75 Respiratory 16 Rate Blood Pressure 149/74 O2 Sat by Pulse 97 Oximetry Medical Decision Making - Medical Decision Making I did discuss findings with the patient and family also with Dr. Cool and Dr. Webb. Patient will be admitted for the patient evaluation and treatment hip fracture - Lab Data Result diagrams: 04/04/22 13:01 04/04/22 13:01 Lab Results 04/04/22 04/04/22 04/04/22 Range/Units 13:01 13:01 13:01 WBC 7.5 (3.8-10.6) k/uL RBC 3.87 (3.80-5.40) m/uL Hgb 11.6 (11.4-16.0) gm/dL Hct 35.8 (34.0-46.0) % MCV 92.5 (80.0-100.0) fL MCH 29.9 (25.0-35.0) pg MCHC 32.3 (31.0-37.0) g/dL RDW 13.5 (11.5-15.5) % Plt Count 245 (150-450) k/uL MPV 9.9 Neutrophils % 75 % Lymphocytes % 15 % Monocytes % 5 % Eosinophils % 3 % Basophils % 1 % Neutrophils # 5.7 (1.3-7.7) k/uL Lymphocytes # 1.1 (1.0-4.8) k/uL Monocytes # 0.4 (0-1.0) k/uL Eosinophils # 0.2 (0-0.7) k/uL Basophils # 0.1 (0-0.2) k/uL Sodium 136 L (137-145) mmol/L Potassium 4.4 (3.5-5.1) mmol/L Chloride 101 (98-107) mmol/L Carbon Dioxide 24 (22-30) mmol/L Anion Gap 11 mmol/L BUN 17 (7-17) mg/dL Creatinine 0.71 (0.52-1.04) mg/dL Est GFR (CKD-EPI)AfAm >90 (>60 ml/min/1.73 sqM) Est GFR (CKD-EPI)NonAf 81 (>60 ml/min/1.73 sqM) Glucose 107 H (74-99) mg/dL Calcium 10.0 (8.4-10.2) mg/dL Magnesium 1.6 (1.6-2.3) mg/dL Total Bilirubin 0.7 (0.2-1.3) mg/dL AST 53 H (14-36) U/L ALT 19 (4-34) U/L Alkaline Phosphatase 92 (38-126) U/L Creatine Kinase 66 (30-135) U/L Troponin I <0.012 (0.000-0.034) ng/mL Total Protein 7.3 (6.3-8.2) g/dL Albumin 4.1 (3.5-5.0) g/dL Urine Color Urine Appearance (Clear) Urine pH (5.0-8.0) Ur Specific [place] (1.001-1.035) Urine Protein (Negative) Urine Glucose (UA) (Negative) Urine Ketones (Negative) Urine Blood (Negative) Urine Nitrite (Negative) Urine Bilirubin (Negative) Urine Urobilinogen (<2.0) mg/dL Ur Leukocyte Esterase (Negative) 04/04/22 Range/Units 14:12 WBC (3.8-10.6) k/uL RBC (3.80-5.40) m/uL Hgb (11.4-16.0) gm/dL Hct (34.0-46.0) % MCV (80.0-100.0) fL MCH (25.0-35.0) pg MCHC (31.0-37.0) g/dL RDW (11.5-15.5) % Plt Count (150-450) k/uL MPV Neutrophils % % Lymphocytes % % Monocytes % % Eosinophils % % Basophils % % Neutrophils # (1.3-7.7) k/uL Lymphocytes # (1.0-4.8) k/uL Monocytes # (0-1.0) k/uL Eosinophils # (0-0.7) k/uL Basophils # (0-0.2) k/uL Sodium (137-145) mmol/L Potassium (3.5-5.1) mmol/L Chloride (98-107) mmol/L Carbon Dioxide (22-30) mmol/L Anion Gap mmol/L BUN (7-17) mg/dL Creatinine (0.52-1.04) mg/dL Est GFR (CKD-EPI)AfAm (>60 ml/min/1.73 sqM) Est GFR (CKD-EPI)NonAf (>60 ml/min/1.73 sqM) Glucose (74-99) mg/dL Calcium (8.4-10.2) mg/dL Magnesium (1.6-2.3) mg/dL Total Bilirubin (0.2-1.3) mg/dL AST (14-36) U/L ALT (4-34) U/L Alkaline Phosphatase (38-126) U/L Creatine Kinase (30-135) U/L Troponin I (0.000-0.034) ng/mL Total Protein (6.3-8.2) g/dL Albumin (3.5-5.0) g/dL Urine Color Yellow Urine Appearance Clear (Clear) Urine pH 8.0 (5.0-8.0) Ur Specific [place] 1.012 (1.001-1.035) Urine Protein Trace H (Negative) Urine Glucose (UA) Negative (Negative) Urine Ketones 1+ H (Negative) Urine Blood Negative (Negative) Urine Nitrite Negative (Negative) Urine Bilirubin Negative (Negative) Urine Urobilinogen <2.0 (<2.0) mg/dL Ur Leukocyte Esterase Negative (Negative) - Radiology Data Radiology results: report reviewed (Image reviewed as well as report evidence of a right hip IT fracture. Patient does have evidence of listhesis of cervical vertebrate 4 and 5 nontender at this area), image reviewed Disposition Clinical Impression: Fall, Closed right hip fracture Disposition: ADMITTED IP TO THIS HOSP Condition: Fair Referrals: Soy Scruggs MD [Primary Care Provider] - 1-2 days Decision Date: 04/04/22 Decision Time: 14:10
[2022-04-04 13:15] LABS: Basophils # (A) 0.1 k/uL (0-0.2); Basophils % (A) 1 %; Eosinophils # (A) 0.2 k/uL (0-0.7); Eosinophils % (A) 3 %; HCT 35.8 % (34.0-46.0); HGB 11.6 gm/dL (11.4-16.0); Lymphocytes # (A) 1.1 k/uL (1.0-4.8); Lymphocytes % (A) 15 %; MCH 29.9 pg (25.0-35.0); MCHC 32.3 g/dL (31.0-37.0); MCV 92.5 fL (80.0-100.0); Mean Platelet Volume 9.9; Monocytes # (A) 0.4 k/uL (0-1.0); Monocytes % (A) 5 %; Neutrophils # (A) 5.7 k/uL (1.3-7.7); Neutrophils % (A) 75 %; Platelet Count 245 k/uL (150-450); RBC 3.87 m/uL (3.80-5.40); RDW 13.5 % (11.5-15.5); WBC 7.5 k/uL (3.8-10.6)
[2022-04-04 13:35] LABS: ALT 19 U/L (4-34); African American GFR (CKD) >90 (>60 ml/min/1.73 sqM); Anion Gap 11 mmol/L; Blood Urea Nitrogen 17 mg/dL (7-17); Carbon Dioxide 24 mmol/L (22-30); Chloride 101 mmol/L (98-107); Creatine Kinase 66 U/L (30-135); Glucose 107 mg/dL (74-99); Non-African American GFR(CKD) 81 (>60 ml/min/1.73 sqM); Sodium 136 mmol/L (137-145); Total Bilirubin 0.7 mg/dL (0.2-1.3)
[2022-04-04 13:41] LABS: Potassium 4.4 mmol/L (3.5-5.1)
[2022-04-04 13:42] LABS: AST 53 U/L (14-36); Albumin 4.1 g/dL (3.5-5.0); Alkaline Phosphatase 92 U/L (38-126); Magnesium 1.6 mg/dL (1.6-2.3); Total Protein 7.3 g/dL (6.3-8.2)
[2022-04-04] MEDS ORDERED: LORazepam 2 MG/ML INJ IV STA (13:42)
--- NOTE | 2022-04-04 13:49 | XR ---
EXAMINATION TYPE: XR chest 2V DATE OF EXAM: 04/04/2022 1:41 PM COMPARISON: Chest radiographs from 03/16/2021 TECHNIQUE: XR chest 2V Frontal and lateral views of the chest. CLINICAL INDICATION:Female, 82 years old with history of Fall; FINDINGS: Lungs/Pleura: There is no evidence of pleural effusion, focal consolidation, or pneumothorax. Pulmonary vascularity: Unremarkable. Heart/mediastinum: Cardiomediastinal silhouette is prominent in size. Musculoskeletal: No acute osseous pathology. Remote right-sided rib fractures redemonstrated. IMPRESSION: 1. No acute cardiopulmonary disease/process. 2. Remote right-sided rib fractures redemonstrated.
--- NOTE | 2022-04-04 13:50 | XR ---
Cervical spine HISTORY: Trauma and pain 5 views of the cervical spine There is anterolisthesis grade 1 C4-5. Loss of disc height is present C5-6 with associated spondylosi s. Bone mineralization is decreased. Prevertebral soft tissues are normal. Sclerosis in the posterior elements is consistent with facet arthropathy. Cervical vertebral bodies show preserved height. Prob able vascular calcifications present along the carotid artery distribution. Oblique images somewhat l imited for evaluation of the foramina. IMPRESSION: Listhesis at C4-5 may be degenerative. There is degenerative disc disease and facet arthr opathy. Consider alternate imaging as indicated.
--- NOTE | 2022-04-04 13:52 | XR ---
EXAMINATION TYPE: XR Hip RT and AP Pelvis, XR femur RT DATE OF EXAM: 04/04/2022 COMPARISON: NONE HISTORY: Fall injury with pain. TECHNIQUE: A single AP view of the pelvis is obtained. Two views of the right hip and femur are obtai ángel. FINDINGS: Osseous structures are demineralized. There is acute comminuted displaced intertrochanteri c fracture right proximal femur. Small condylar shaped fracture fragments involving the greater lesse r trochanter are felt present. No hip joint dislocation is seen. No additional acute fracture or disl ocation in the pelvis. There are left-sided pelvic phleboliths incidentally noted. Metallic hardware through left proximal femur is partially imaged through a healed trochanteric fracture. No additional acute displaced fracture in the distal right femur. Overlying blanket material is prese nt making evaluation slightly suboptimal. Moderate to severe tricompartment joint space loss in the r ight knee incidentally noted. IMPRESSION: There is an acute comminuted displaced intertrochanteric fracture right proximal femur.
--- NOTE | 2022-04-04 13:52 | XR ---
Right shoulder HISTORY: Trauma and pain 3 views the right shoulder Bone mineralization is reduced. Cortical irregularities present at the distal right clavicle. There i s no evident dislocation. Right lung as visualized is normal. There is overlying artifact. IMPRESSION: Suspect a distal right clavicular fracture.
[2022-04-04 14:26] LABS: Appearance,Urine Clear (Clear); Bilirubin,Urine Negative (Negative); Blood,Urine Negative (Negative); Color,Urine Yellow; Glucose,Urine (UA) Negative (Negative); Ketones,Urine 1+ (Negative); Leukocyte Esterase,Urine Negative (Negative); Nitrite,Urine Negative (Negative); Protein,Urine Trace (Negative); Specific Gravity,Urine 1.012 (1.001-1.035); Urobilinogen,Urine <2.0 mg/dL (<2.0)
[2022-04-04] MEDS ORDERED: NALOXONE 0.4 MG/ML 1 ML VIAL IV PRN (14:34)
[2022-04-04] MEDS: SODIUM CHLORIDE 0.9% 1,000 ML IV SCH (14:44)
--- NOTE | 2022-04-04 16:20 | P.HPIM ---
History of Present Illness H&P Date: 04/04/22 Patient is a 82-year-old female with recent TIA and weakness, hypothyroidism, and GERD who presented to the ER after a fall. She was found to have a right intertrochanteric hip fracture. We have been asked to consult for preoperative risk stratification. Patient seen and examined at bedside. She is currently in the ER and 2 daughters are present at bedside. Patient is sedated after receiving Dilaudid and Ativan in the ER secondary to pain and agitation. Per daughters they were at [employer] today trying on shoes when her rolling walker with seat slipped out from under her and she fell. She is typically dependent for bathing, food prep, and cleaning. She is able to dress herself mostly. She has been getting very weak over the last several months. Daughters deny any recent complaints of chest pain, syncope, or dyspnea. She is not able to ambulate very far. They deny any recent cough, cold, fever, flu, nausea, vomiting, diarrhea. She was just taken off of her antibiotic by her primary care physician yesterday after deep being placed on it for urinary tract infection when her urine was tested as clean. She does require lower extremity compression stockings due to chronic venous stasis. Pertinent positives and negatives as discussed in HPI, a complete review of systems was performed and all other systems are negative. Vital signs reviewed General: nontoxic, no distress, appears at stated age Derm: warm, dry Head: atraumatic, normocephalic, symmetric Eyes: EOMI, no lid lag, anicteric sclera, pupils pinpoint ENT: Nose and ears atraumatic, no thrush, no pharyngeal erythema Neck: No thyromegaly, no cervical lymphadenopathy, trachea midline, supple Mouth: no lip lesion, mucus membranes moist Cardiovascular: S1S2 reg, no murmur, positive posterior tibial pulse bilateral, trace edema bilateral lower extremities, capillary refill less than 2 seconds Lungs: clear to auscultation bilateral, no rhonchi, no rales, no wheeze, no accessory muscle use Abdominal: soft, nontender to palpation, no guarding, no appreciable organomegaly, normal bowel sounds Ext: no gross muscle atrophy, muscle strength 4 out of 5 in upper extremities, 3 out of 5 in left lower extremity, no contractures Neuro: CN II-XII grossly intact, light touch intact all 4 extremities, unable to complete finger to nose testing secondary to sedation Psych: Sedated, unable to answer questions, does awake to tactile stimulation. Assessment/Plan: 82-year-old female with right intertrochanteric hip fracture -Preoperative risk stratification NSQIP criteria -Patient is at average risk for serious complication, , and any complication. She is an above average risk for needing to be discharged to a [facility] and having readmission. Went over risks with family and the findings to be acceptable. Patient does not need any further testing prior to surgery. She is at an elevated but acceptable risk. Hypothyroidism - synthroid GERD - PPI Generalized debility - PT/OT after surgery - fall precuations TIA - ASA after OR Thank you for allowing us to participate in the care of this pleasant patient. Do not hesitate to contact us with questions. Someone can be reached from the [facility] [place] hospitalist group all hours of the day at [phone] or via [employer]. Past Medical History Past Medical History: GERD/Reflux, Pneumonia, Thyroid Disorder Additional Past Medical History / Comment(s): bowel perforation 2019, uterine prolpase with pessary, UTI, TIA, hypotyroidism History of Any Multi-Drug Resistant Organisms: None Reported Past Surgical History: Bowel Resection Additional Past Surgical History / Comment(s): left femur surgery, cataract, inguinal hernia surgery repair Past Anesthesia/Blood Transfusion Reactions: No Reported Reaction Past Psychological History: Anxiety Smoking Status: Never smoker Past Alcohol Use History: None Reported Past Drug Use History: None Reported Additional History: walker - Past Family History Mother Family Medical History: Myocardial Infarction ([place]) Medications and Allergies Home Medications Medication Instructions Recorded Confirmed Type Pantoprazole [Protonix] 40 mg PO HS 03/16/21 04/04/22 History Ketorolac 0.5% Ophth Soln [Acular 1 drops BOTH EYES BID 04/04/22 04/04/22 History 0.5%] Levothyroxine Sodium [Synthroid] 12.5 mcg PO DAILY 04/04/22 04/04/22 History QUEtiapine [SEROquel] 12.5 mg PO HS PRN 04/04/22 04/04/22 History prednisoLONE ACETATE 1% OPHTH 1 drops BOTH EYES BID 04/04/22 04/04/22 History [Pred Forte 1%] Allergies Allergy/AdvReac Type Severity Reaction Status Date / Time Penicillins Allergy Unknown Verified 04/04/22 16:09 Sulfa (Sulfonamide Allergy Unknown Verified 04/04/22 16:09 Antibiotics) Physical Exam Osteopathic Statement: *. No significant issues noted on an osteopathic structural exam other than those noted in the History and Physical/Consult. Vitals: Vital Signs Temp Pulse Resp BP Pulse Ox 04/04/22 14:00 14 94 L 04/04/22 12:20 97.5 F L 75 16 149/74 97 Intake and Output 04/04/22 04/04/22 04/04/22 06:59 14:59 22:59 Other: Weight 54.431 kg Results CBC & Chem 7: 04/04/22 13:01 04/04/22 13:01 Labs: Abnormal Lab Results - Last 24 Hours (Table) 04/04/22 04/04/22 Range/Units 13:01 14:12 Sodium 136 L (137-145) mmol/L Glucose 107 H (74-99) mg/dL AST 53 H (14-36) U/L Urine Protein Trace H (Negative) Urine Ketones 1+ H (Negative)
[2022-04-04] MEDS ORDERED: MELATONIN 3 MG TABLET PO PRN (17:02)
[2022-04-04] MEDS ORDERED: ONDANSETRON 4 MG/2 ML VIAL IVP PRN (17:02)
[2022-04-04] MEDS ORDERED: ACETAMINOPHEN TAB 325 MG TAB PO PRN (17:02)
[2022-04-04] MEDS ORDERED: HYDROcodone/APAP 5-325MG 1 EACH TAB PO PRN (17:02)
[2022-04-04] MEDS: HYDROmorphone 0.5 MG/0.5 ML SYRINGE IVP PRN ×3 (17:02→23:40)
[2022-04-04] MEDS ORDERED: LORazepam 2 MG/ML INJ IV PRN (17:02)
--- NOTE | 2022-04-04 17:09 | P.HPOR ---
History of Present Illness H&P Date: 04/04/22 This patient is an 82-year-old female with past medical history of TIA, hypothyroidism who presented to [facility] emergency department today after a fall. The patient is mildly sedated at this time after receiving Dilaudid and Ativan due to pain and anxiety. Her 2 daughters are at bedside, history is obtained from her daughters. They state the patient was at a local store today and tripped, falling onto the right hip. An ambulance was called and the patient was transported to [facility] emergency department. X- rays in the emergency department revealed a right intertrochanteric hip fracture. Patient has a history of left hip fracture about 6 years ago and underwent operative fixation at that time in [place]. The patient is admitted under the care of Dr. Cool with a consult placed to internal medicine for pre-operative medical evaluation. She is examined bedside in the emergency department this afternoon. The patient states her pain is well controlled at this time. She ambulates with a walker at baseline. She lives at home with her . She has no additional complaints or concerns. Vital signs stable. Past Medical History Past Medical History: GERD/Reflux, Pneumonia, Thyroid Disorder Additional Past Medical History / Comment(s): bowel perforation 2020, uterine prolpase with pessary, UTI, TIA, hypotyroidism History of Any Multi-Drug Resistant Organisms: None Reported Past Surgical History: Bowel Resection Additional Past Surgical History / Comment(s): left femur surgery, cataract, inguinal hernia surgery repair Past Anesthesia/Blood Transfusion Reactions: No Reported Reaction Past Psychological History: Anxiety Smoking Status: Never smoker Past Alcohol Use History: None Reported Past Drug Use History: None Reported - Past Family History Mother Family Medical History: Myocardial Infarction ([place]) Medications and Allergies Home Medications Medication Instructions Recorded Confirmed Type Pantoprazole [Protonix] 40 mg PO HS 03/16/21 04/04/22 History Ketorolac 0.5% Ophth Soln [Acular 1 drops BOTH EYES BID 04/04/22 04/04/22 History 0.5%] Levothyroxine Sodium [Synthroid] 12.5 mcg PO DAILY 04/04/22 04/04/22 History QUEtiapine [SEROquel] 12.5 mg PO HS PRN 04/04/22 04/04/22 History prednisoLONE ACETATE 1% OPHTH 1 drops BOTH EYES BID 04/04/22 04/04/22 History [Pred Forte 1%] Allergies Allergy/AdvReac Type Severity Reaction Status Date / Time Penicillins Allergy Unknown Verified 04/04/22 16:09 Sulfa (Sulfonamide Allergy Unknown Verified 04/04/22 16:09 Antibiotics) Physical Examination On examination, patient is lying in bed in no apparent distress. She is alert and follows commands, although lethargic. Her daughters are at bedside. Her head appears normocephalic and atraumatic. Her breathing appears unlabored. On inspection of her bilateral upper extremities, there are no obvious deformities or signs of trauma. On inspection of the right anterior shoulder, there are no lacerations or abrasions. No ecchymosis. No pain with palpation of the distal clavicle. No pain with passive range of motion of the right shoulder. On examination of her left lower extremity, no obvious deformities or signs of trauma. No pain with range of motion of the left hip. On inspection of the right lower extremity, there is mild swelling of the thigh. Thigh is soft and compressible. There is severe pain with palpation of the right hip. Passive range of motion of the right lower extremity not attempted at this time. No pain on palpation of the right knee, lower leg, ankle, foot. The right lower extremity is warm and well perfused, the dorsalis pedis pulse easily palpable. Results Right hip and pelvis x-ray 04/04/22: Right intertrochanteric hip fracture. Prior left intertrochanteric hip fracture that appears healed with intact hardware. Right shoulder x-ray 04/04/22: Possible distal clavicle fracture. No additional fractures, abnormalities identified. - Labs Labs: Abnormal Lab Results - Last 24 Hours (Table) 04/04/22 04/04/22 Range/Units 13:01 14:12 Sodium 136 L (137-145) mmol/L Glucose 107 H (74-99) mg/dL AST 53 H (14-36) U/L Urine Protein Trace H (Negative) Urine Ketones 1+ H (Negative) H & H 04/04/22 Range/Units 13:01 Hgb 11.6 (11.4-16.0) gm/dL Hct 35.8 (34.0-46.0) % Result Diagrams: 04/04/22 13:01 04/04/22 13:01 Assessment and Plan Assessment: Right intertrochanteric hip fracture Possible non-displaced right distal clavicle fracture Plan: - The clinical and imaging findings were discussed with the patient and her daughters. The patient was discussed with Dr. Cool. Recommend closed reduction right hip and insertion of a right short gamma nail tomorrow, pending medical clearance and consent. Risks were discussed with the patient's daughters, as well as Dr. Hewitt. Verbal consent for surgery was given bedside today. - Bed rest. Strict non-weight bearing right lower extremity. - Pain management as needed. - Internal medicine consultation for olimpia-operative medical management. - NPO diet at midnight. Will plan for OR tomorrow.
[2022-04-05] MEDS: HYDROmorphone 0.5 MG/0.5 ML SYRINGE IVP PRN ×5 (02:49→22:02)
[2022-04-05] MEDS: SODIUM CHLORIDE 0.9% 1,000 ML IV SCH ×2 (07:15→16:49)
[2022-04-05] MEDS ORDERED: LACTATED RINGERS 1,000 ML IV ONE (13:51)
--- NOTE | 2022-04-05 14:05 | P.PN ---
Subjective Progress Note Date: 04/05/22 (delayed charting seen at 0930) Principal diagnosis: fall Patient is a 82-year-old female with recent TIA and weakness, hypothyroidism, and GERD who presented to the ER after a fall. She was found to have a right intertrochanteric hip fracture. We were consulted for preoperative risk stratification. Patient seen and examined at bedside. She is more awake and lucid today. She does complain of some hip pain on the right. She denies any chest pain, shortness of breath, nausea. She complains of her mouth being dry. General: ill appearing, no distress, appears at stated age Derm: warm, dry Head: atraumatic, normocephalic, symmetric Eyes: EOMI, no lid lag, anicteric sclera Mouth: no lip lesion, mucus membranes dry Cardiovascular: S1S2 reg, no murmur, positive posterior tibial pulse bilateral, Lungs: Decreased bs b/l bilateral, no rhonchi, no rales , no accessory muscle use Abdominal: soft, nontender to palpation, no guarding, no appreciable organomegaly Ext: no gross muscle atrophy, no edema, no contractures Neuro: CN II-XI grossly intact, no focal neuro deficits Psych: Alert, oriented to self and situation, appropriate affect Assessment/Plan: 82-year-old female with right intertrochanteric hip fracture Fall - OR today - PT/OT after OR - Fall precautions Toxic metabolic encephaloptehy - likely due to pain and delirium form pain meds - safe and supportive environment Hypothyroidism - synthroid GERD - PPI Generalized debility - PT/OT after surgery - fall precautions TIA - ASA after OR Objective - Vital Signs Vital signs: Vital Signs Temp 97.8 F 04/05/22 13:46 Pulse 99 04/05/22 13:46 Resp 18 04/05/22 13:46 BP 125/65 04/05/22 13:46 Pulse Ox 92 L 04/05/22 13:46 FiO2 Intake & Output 04/04/22 04/05/22 04/05/22 18:59 06:59 18:59 Intake Total 600 Output Total 1050 Balance -450 Weight 54.431 kg Intake: IV 600 Sodium Chloride 0.9% 1, 600 000 ml @ 75 mls/hr IV . [id number] DANDY Rx#:[id number] Output: Urine 1050 - Labs CBC & Chem 7: 04/04/22 13:01 04/04/22 13:01 Labs: Abnormal Lab Results - Last 24 Hours (Table) 04/04/22 Range/Units 14:12 Urine Protein Trace H (Negative) Urine Ketones 1+ H (Negative)
[2022-04-05] MEDS ORDERED: PHENYLEPHRINE-0.9% NACL SYG 1,000 MCG/10 ML SYRINGE ONE (14:28)
[2022-04-05] MEDS ORDERED: KETAMINE 10 MG/ML 20 ML VIAL ONE (14:28)
[2022-04-05] MEDS ORDERED: fentaNYL (PF) 50 MCG/ML 2 ML AMP ONE (14:28)
[2022-04-05] MEDS ORDERED: MIDAZOLAM 2 MG/2 ML VIAL ONE (14:28)
[2022-04-05] MEDS ORDERED: MAGNESIUM HYDROXIDE 2,400 MG/10 ML CUP PO PRN (15:54)
--- NOTE | 2022-04-05 15:54 | XR ---
EXAMINATION TYPE: XR Hip Complete RT DATE OF EXAM: 04/05/2022 COMPARISON: NONE HISTORY: Postop TECHNIQUE: One view submitted. FINDINGS: There is postsurgical change in near anatomic alignment. There is soft tissue edema and emphysema. IMPRESSION: 1. Postoperative change. Appears in near-anatomic alignment.
--- NOTE | 2022-04-05 15:55 | FL ---
EXAMINATION TYPE: FL guidance operating room DATE OF EXAM: 04/05/2022 HISTORY: Fluoroscopy time 57 seconds of fluoroscopy provided. IMPRESSION: 1. Fluoroscopy time.
--- NOTE | 2022-04-05 16:30 | XR ---
EXAMINATION TYPE: XR Hip Limited RT DATE OF EXAM: 04/05/2022 COMPARISON: 04/04/2022 HISTORY: Post right hip and TECHNIQUE: AP view right hip FINDINGS: There is placement of a right hip pin. Screws through the femoral neck into the femoral hea d. No new fractures are evident. Skin freddy are present laterally. Soft tissue postsurgical changes are evident. IMPRESSION: 1. No new fractures post right hip replacement
[2022-04-05] MEDS: ASPIRIN 81 MG PO SCH (22:06)
[2022-04-05] MEDS: SENNOSIDES-DOCUSATE SODIUM 1 EACH TAB PO SCH (22:07)
--- NOTE | 2022-04-05 22:43 | OP ---
OPERATIVE REPORT DATA MANAGEMENT SPECIALIST: Mari Bryson NP. PREOPERATIVE DIAGNOSIS: Right intertrochanteric hip fracture. POSTOPERATIVE DIAGNOSIS: Right intertrochanteric hip fracture. PROCEDURE PERFORMED: Right intramedullary hip screw fixation for right intertrochanteric hip fracture. ANESTHESIA: Spinal with sedation. ESTIMATED BLOOD LOSS: 75 mL. TOURNIQUET: None. DRAINS: None. COMPLICATIONS: None apparent. DISPOSITION: Postanesthesia care unit. INDICATIONS: Sylvia is a very pleasant 82-year-old female, who fell yesterday at home onto her right hip. She has had immediate hip pain, was unable to ambulate. She was brought to [facility] via ambulance. Workup including x-rays revealed a two-part intertrochanteric hip fracture. She was admitted to my service and cleared for medicine. She is an independent ambulator. She lives at home with her . Recommendation was for a right intramedullary hip screw fixation for her fracture. The risks, procedure were discussed with her and her family in detail. These risks include, but are not limited to risk of infection, nerve damage, bleeding, pain, and a small risk of deep vein thrombosis, which could lead to fatal pulmonary embolism. Further risks include possibility for hardware irritation, failure of the fracture to heal, hardware failure which could necessitate further surgery. All of her questions with regard to the risks of the procedure were answered to her satisfaction. Appropriate informed consent was obtained. DESCRIPTION OF THE PROCEDURE: The patient was identified in preoperative holding area. Surgical site was marked by both the patient and myself. She was given 2 g of Ancef IV for prophylactic purposes. She was then transported to the operative suite. She was placed supine on the operating table. Spinal anesthetic was then administered and dosed per the Anesthesia without apparent complication. She was then placed onto the [place] hip fracture table, well-padded in preparation for surgery. Fluoroscopy was then brought in. The fracture was reduced with traction and rotation. Fluoroscopy was utilized to assist in the reduction. I was happy with the reduction. The right lower extremity was then prepped and draped in usual sterile fashion. A standard surgical pause was undertaken to ensure that we were operating the correct site and that appropriate preoperative antibiotics were given. All staff in room were in agreement and we proceeded. The tip of the greater trochanter was located with fluoroscopy. An approximate 3 cm incision extending from the tip of the greater trochanter proximally in line with the femur was then made with a 10 blade scalpel. Dissection was carried down sharply to the tensor fascia. The tensor fascia was then incised in line with the incision. The curved awl was then placed at the medial aspect of the tip of the greater trochanter. The threaded guide pin was then advanced down to the center of the femur. Again, intramedullary placement was confirmed with fluoroscopic imaging. The proximal femur was then over-reamed with the starting reamer. The threaded guide pin was removed and then the ball-tipped guidewire was then placed down the femoral shaft. Again, intramedullary placement was confirmed with fluoroscopy. I then reamed the femoral canal, started with a 9 mm reamer and incrementally increased up to a 13 mm reamer. This again was done under with fluoroscopic assistance. I then had the passenger service representative to open a Gina 11 mm x 125 degree by 180 mm gamma nail. This was assembled on the back table. The Gamma nail was then inserted over the ball-tipped guidewire. The ball-tipped guidewire was removed. I then proceeded with placement of the of the hip screw. A second small incision was made on the lateral femur. The threaded guide pin was then placed deep into the center of the femoral head on both AP and lateral views. The tip-apex distance was appropriate. I then measured for length and the reamer was set to 85 mm. The threaded guide pin was then over reamed under fluoroscopic imaging to 85 mm. I had the passenger service representative to open a 10 mm x 85 mm partially-threaded cannulated hip screw. The hip screw was then advanced over the threaded guide pin. This was advanced deep into the center of the femoral head. The screw had excellent purchase in the femoral head. Her bone quality seemed quite good. The screw was then placed deep into the center of the femoral head on both AP and lateral views. The tip-apex distance was appropriate. The set screw was then tightened fully and then backed off one-quarter turn. I then proceeded to place the distal static locking screw. A third small stab incision was made on the lateral thigh. A 5 mm x 30 mm distal locking screw was then placed through the nail again utilizing fluoroscopic assistance. At this point, no further deemed necessary. Final fluoroscopic images were taken. The hip screw was placed intramedullary. The hip screw was placed deep into the center of the femoral head on both AP and lateral views. The tip-apex distance was appropriate. The distal locking screw through the nail and of appropriate length. At this point time, no further deemed necessary. The wounds were thoroughly irrigated with sterile saline solution with antibiotic added. The tensor fascia was closed with 0 Vicryl interrupted suture. Subcutaneous tissue was closed with 2-0 Vicryl interrupted suture, and the skin was closed with stainless steel freddy. Sterile dressings were then applied. All sponge and needle counts were deemed correct prior to closure. The patient tolerated the procedure without apparent complication. She was transferred to recovery room in stable condition. [id number] / IJN: [id number] /
[2022-04-05] MEDS ORDERED: QUEtiapine 25 MG TAB PO STA ×2 (22:53→23:07)
[2022-04-06] MEDS: HYDROmorphone 0.5 MG/0.5 ML SYRINGE IVP PRN ×6 (00:59→21:13)
[2022-04-06] MEDS ORDERED: LORazepam 2 MG/ML INJ IV STA (01:48)
[2022-04-06] MEDS: ASPIRIN 81 MG PO SCH ×3 (07:46→21:12)
[2022-04-06 08:00] LABS: African American GFR (CKD) 81 (>60 ml/min/1.73 sqM); Anion Gap 9 mmol/L; Blood Urea Nitrogen 12 mg/dL (7-17); Calcium 8.8 mg/dL (8.4-10.2); Carbon Dioxide 25 mmol/L (22-30); Chloride 100 mmol/L (98-107); Glucose 91 mg/dL (74-99); Non-African American GFR(CKD) 70 (>60 ml/min/1.73 sqM); Potassium 3.9 mmol/L (3.5-5.1); Sodium 134 mmol/L (137-145)
[2022-04-06] MEDS: SODIUM CHLORIDE 0.9% 1,000 ML IV SCH ×2 (09:28→21:10)
[2022-04-06] MEDS: HYDROcodone/APAP 10-325MG 1 EACH TAB PO PRN (10:13)
[2022-04-06 10:47] LABS: Basophils # (A) 0.09 X 10*3/uL (0.00-0.10); Basophils % (A) 1.3 %; Eosinophils # (A) 0.27 X 10*3/uL (0.04-0.35); Eosinophils % (A) 3.9 %; HCT 27.5 % (37.2-46.3); HGB 8.9 g/dL (12.0-15.0); Immature Grans, Automated 0.6 %; Lymphocytes # (A) 1.46 X 10*3/uL (0.90-5.00); MCH 29.3 pg (27.0-32.0); MCHC 32.4 g/dL (32.0-37.0); MCV 90.5 fL (80.0-97.0); Mean Platelet Volume 12.7 fL (9.5-12.2); Monocytes # (A) 0.63 X 10*3/uL (0.20-1.00); Monocytes % (A) 9.1 %; NRBC Per 100 WBC 0 /100 WBCS (0.0-0.0); Neutrophils # (A) 4.47 X 10*3/uL (1.80-7.70); Neutrophils % (A) 64.1 %; Platelet Count 170 X 10*3/uL (140-440); RBC 3.04 X 10*6/uL (4.10-5.20); RDW 13.6 % (11.5-14.5); WBC 6.96 X 10*3/uL (4.50-10.00)
--- NOTE | 2022-04-06 11:21 | P.PN ---
Subjective Progress Note Date: 04/06/22 Principal diagnosis: Status post right hip gamma nail This is an 82 year-old female post right hip gamma nail. This is post-op day 1. The patient was evaluated at the bedside today. The patient is quite confused and falls asleep quickly. She is complaining of neck pain when she is awake. The patient has not been up with physical therapy yet this morning. Objective - Vital Signs Vital signs: Vital Signs Temp 98.0 F 04/06/22 08:00 Pulse 94 04/06/22 08:00 Resp 17 04/06/22 02:00 BP 109/51 04/06/22 08:00 Pulse Ox 97 04/06/22 08:00 FiO2 Intake & Output 04/05/22 04/06/22 04/06/22 18:59 06:59 18:59 Intake Total 500 Output Total 425 650 Balance 75 -650 Intake: IV 500 Output: Urine 350 650 Estimated Blood Loss 75 Other: Voiding Method Indwelling Catheter - Exam The patient does not appear in acute distress. Alert and orientated x1. Operative dressing was off on exam. Incision appears fine with no erythema or active drainage. New dressing applied. Calf is soft and nontender. Sensation and circulatory status is intact. - Labs CBC & Chem 7: 04/06/22 06:36 04/06/22 06:36 Labs: Abnormal Lab Results - Last 24 Hours (Table) 04/06/22 04/06/22 Range/Units 06:36 06:36 RBC 3.04 L (4.10-5.20) X 10*6/uL Hgb 8.9 L (12.0-15.0) g/dL Hct 27.5 L (37.2-46.3) % MPV 12.7 H (9.5-12.2) fL Sodium 134 L (137-145) mmol/L Assessment and Plan (1) Status post hip surgery Current Visit: Yes Status: Acute Code(s): Z98.890 - OTHER SPECIFIED POSTPROCEDURAL STATES SNOMED Code(s): 096993398 (2) Closed right hip fracture Current Visit: Yes Status: Acute Code(s): S72.001A - FRACTURE OF UNSP PART OF NECK OF RIGHT FEMUR, INIT SNOMED Code(s): 954478740 (3) Fall Current Visit: Yes Status: Acute Code(s): W19.XXXA - UNSPECIFIED FALL, INITIAL ENCOUNTER SNOMED Code(s): 6302015 Plan: 1. Continue pain control 2. Anticoagulation with Aspirin 325 mg BID 3. Start physical therapy and ambulation, toe touch weighbearing 4. Anticipate discharge to skilled rehab in the next 1-2 days.
[2022-04-06] MEDS ORDERED: QUEtiapine 25 MG TAB PO PRN (13:11)
--- NOTE | 2022-04-06 13:18 | P.PN ---
Subjective Progress Note Date: 04/06/22 (delayed charting seen at 0845) Principal diagnosis: fall Patient is a 82-year-old female with recent TIA and weakness, hypothyroidism, and GERD who presented to the ER after a fall. She was found to have a right intertrochanteric hip fracture. We were consulted for preoperative risk stratification. She underwent IM nailing on 04/05. Patient seen and examined at bedside. She states pain is better today, No chest pain or shortness of breath, No nausea. \ General: non toxic, no distress, appears at stated age Derm: warm, dry Head: atraumatic, normocephalic, symmetric Eyes: EOMI, no lid lag, anicteric sclera Mouth: no lip lesion, mucus membranes dry Cardiovascular: S1S2 reg, no murmur, positive posterior tibial pulse bilateral, Lungs: Decreased bs b/l bilateral, no rhonchi, no rales , no accessory muscle use Abdominal: soft, nontender to palpation, no guarding, no appreciable organomegaly Ext: no gross muscle atrophy, trace edema, no contractures Neuro: CN II-XI grossly intact, no focal neuro deficits Psych: Alert, oriented to self and situation,blunted affect Assessment/Plan: 82-year-old female with right intertrochanteric hip fracture Fall - s/p IM nailing on 04/05. - PT/OT - Fall precautions Acute blood loss anemia - no indication for transfusion - follow CBC - check iron studies Toxic metabolic encephaloptehy - likely due to pain and delirium form pain meds - safe and supportive environment Hypothyroidism - synthroid GERD - PPI Generalized debility - PT/OT after surgery - fall precautions TIA - ASA Active Medications Generic Name Dose Route Start Last Admin Trade Name Freq PRN Reason Stop Dose Admin Acetaminophen 650 mg 04/04/22 17:02 Acetaminophen Tab 325 Mg Tab PO Q6HR PRN Mild Pain or Fever > 100.5 Hydrocodone Bitart/Acetaminophen 1 each 04/04/22 17:02 04/05/22 20:00 Hydrocodone/Apap 5-325mg 1 Each Tab PO 1 each Q4HR PRN Administration Moderate Pain Hydrocodone Bitart/Acetaminophen 1 each 04/04/22 17:04 04/06/22 10:13 Hydrocodone/Apap 10-325mg 1 Each Tab PO 1 each Q6HR PRN Administration Severe Pain Aspirin 81 mg 04/05/22 21:00 04/06/22 07:48 Aspirin 81 Mg PO Not Given BID [facility] Hydromorphone HCl 0.5 mg 04/04/22 14:34 04/06/22 09:33 Hydromorphone 0.5 Mg/0.5 Ml Syringe IVP 0.5 mg Q3HR PRN Administration Moderate Pain Sodium Chloride 1,000 mls @ 75 mls/hr 04/04/22 14:45 04/06/22 09:28 Saline 0.9% IV 75 mls/hr .[id number] DANDY Administration Ketorolac Tromethamine 1 drops 04/06/22 21:00 Ketorolac 0.5% Ophth Drops 5 Ml Btl BOTH EYES BID [facility] Levothyroxine Sodium 12.5 mcg 04/07/22 06:30 Levothyroxine 25 Mcg Tab PO DAILY@0630 [facility] Lorazepam 0.25 mg 04/04/22 17:02 04/05/22 19:40 Lorazepam 2 Mg/Ml Inj IV 0.25 mg Q6HR PRN Administration Anxiety Magnesium Hydroxide 2,400 mg 04/05/22 15:54 Magnesium Hydroxide 2,400 Mg/10 Ml Cup PO DAILY PRN Constipation Melatonin 3 mg 04/04/22 17:02 Melatonin 3 Mg Tablet PO HS PRN Insomnia Naloxone HCl 0.2 mg 04/04/22 14:34 Naloxone 0.4 Mg/Ml 1 Ml Vial IV Q2M PRN Opioid Reversal Ondansetron HCl 4 mg 04/04/22 17:02 04/05/22 12:25 Ondansetron 4 Mg/2 Ml Vial IVP 4 mg Q8HR PRN Administration Nausea And Vomiting Pantoprazole Sodium 40 mg 04/06/22 21:00 Pantoprazole 40 Mg Tablet PO HS [facility] Prednisolone Acetate 1 drops 04/06/22 21:00 Prednisolone Acetate 1% Ophth Drops 5 Ml Btl BOTH EYES BID [facility] Quetiapine Fumarate 12.5 mg 04/06/22 13:11 Quetiapine 25 Mg Tab PO HS PRN INSOMNIA/ANXIETY Senna/Docusate Sodium 2 each 04/05/22 21:00 04/05/22 22:07 Sennosides-Docusate Sodium 1 Each Tab PO Not Given [facility] Objective - Vital Signs Vital signs: Vital Signs Temp 98.0 F 04/06/22 08:00 Pulse 94 04/06/22 08:00 Resp 17 04/06/22 02:00 BP 109/51 04/06/22 08:00 Pulse Ox 97 04/06/22 08:00 FiO2 Intake & Output 04/05/22 04/06/22 04/06/22 18:59 06:59 18:59 Intake Total 500 Output Total 425 650 Balance 75 -650 Intake: IV 500 Output: Urine 350 650 Estimated Blood Loss 75 Other: Voiding Method Indwelling Catheter Indwelling Catheter - Labs CBC & Chem 7: 04/06/22 06:36 04/06/22 06:36 Labs: Abnormal Lab Results - Last 24 Hours (Table) 04/06/22 04/06/22 Range/Units 06:36 06:36 RBC 3.04 L (4.10-5.20) X 10*6/uL Hgb 8.9 L (12.0-15.0) g/dL Hct 27.5 L (37.2-46.3) % MPV 12.7 H (9.5-12.2) fL Sodium 134 L (137-145) mmol/L
[2022-04-06] MEDS ORDERED: SODIUM CHLORIDE 5% OPHTH OINT 3.5 GM TUBE BOTH EYES SCH (21:00)
[2022-04-06] MEDS ORDERED: PANTOPRAZOLE 40 MG TABLET PO SCH (21:00)
[2022-04-06] MEDS: SENNOSIDES-DOCUSATE SODIUM 1 EACH TAB PO SCH (21:12)
[2022-04-06] MEDS: KETOROLAC 0.5% OPHTH DROPS 5 ML BTL BOTH EYES SCH (21:13)
[2022-04-06] MEDS: prednisoLONE ACETATE 1% OPHTH DROPS 5 ML BTL BOTH EYES SCH (21:13)
[2022-04-06 21:32] LABS: % Iron Saturation 6.32 (12.00-45.00)
[2022-04-07] MEDS: HYDROmorphone 0.5 MG/0.5 ML SYRINGE IVP PRN (00:04)
[2022-04-07] MEDS ORDERED: LEVOTHYROXINE 25 MCG TAB PO SCH (06:30)
[2022-04-07 06:58] LABS: HCT 26.8 % (34.0-46.0); MCH 31.3 pg (25.0-35.0); MCHC 33.7 g/dL (31.0-37.0); MCV 92.7 fL (80.0-100.0); Mean Platelet Volume 10.1; Platelet Count 173 k/uL (150-450); RBC 2.89 m/uL (3.80-5.40); RDW 13.7 % (11.5-15.5); WBC 6.7 k/uL (3.8-10.6)
[2022-04-07 07:11] LABS: African American GFR (CKD) >90 (>60 ml/min/1.73 sqM); Anion Gap 9 mmol/L; Blood Urea Nitrogen 11 mg/dL (7-17); Calcium 8.7 mg/dL (8.4-10.2); Carbon Dioxide 24 mmol/L (22-30); Chloride 99 mmol/L (98-107); Glucose 104 mg/dL (74-99); Non-African American GFR(CKD) 84 (>60 ml/min/1.73 sqM); Potassium 3.9 mmol/L (3.5-5.1); Sodium 132 mmol/L (137-145)
[2022-04-07 07:36] VITALS: PULSE 105; RESP 18
[2022-04-07] MEDS: HYDROcodone/APAP 10-325MG 1 EACH TAB PO PRN (08:44)
[2022-04-07] MEDS: ASPIRIN 81 MG PO SCH (08:44)
[2022-04-07] MEDS: SODIUM CHLORIDE 0.9% 1,000 ML IV SCH (08:47)
[2022-04-07] MEDS: KETOROLAC 0.5% OPHTH DROPS 5 ML BTL BOTH EYES SCH (08:52)
[2022-04-07] MEDS: prednisoLONE ACETATE 1% OPHTH DROPS 5 ML BTL BOTH EYES SCH (08:52)
--- NOTE | 2022-04-07 11:09 | P.DS ---
Providers Date of admission: 04/04/22 14:34 Expected date of discharge: 04/07/22 Attending physician: Yaniv Cool Consults: 04/04/22 14:34 Consult Physician Routine Consulting Provider: Diann Hewitt Consult Reason/Comments: Medical clearance for surgery Do you want consulting provider notified?: Already Contacted Primary care physician: [facility] Course: This is an 85-year-old male who is admitted to [facility] on 04/04/22 after a ground-level fall and sustaining injury to the right hip. X-rays in the emergency department revealed a right intertrochanteric hip fracture. Patient also has a right non-displaced distal clavicle fracture that is being treated non-operatively. She is admitted to our service for surgical in tervention and care. Patient was taken to surgery for closed reduction right hip and insertion of short gamma nail on 04/05/[address] Cool. The procedure was performed without complication or sequelae. The patient is doing fairly well postoperatively. Vital signs and labs are stable on postoperative day #2. Patient was examined bedside today. Patient states she is doing well and has no specific complaints. Patient is mildly confused. She is currently up to the bedside chair. She states the pain in her right hip is well controlled at this time. She is complaining of mild pain in the right anterior shoulder. She has no new complaints or concerns at this time. On examination, the patient is sitting up in bedside chair. She is mildly confused, although alert and answers questions appropriately. On inspection of the right hip, there is a clean, dry, intact surgical dressing in place. No bleeding or drainage to the dressing. There is mild swelling of the thigh, the thigh is soft and compressible. Motor and sensory function is intact of the right lower extremity. The dorsalis pedis pulses easily palpable, right lower extremity warm and well perfused. Calf is nontender. Patient is discharged to rehab today in good condition, pending medical clearance. Patient will follow-up with Dr. Cool in the office in 2 weeks. Please see med rec for accurate list of discharge medication. Patient Condition at Discharge: Fair Plan - Discharge Summary Discharge Rx Participant: No New Discharge Prescriptions: New Docusate [Colace] 100 mg PO BID #60 capsule HYDROcodone/APAP 5-325MG [[place] 5-325] 1 tab PO Q6HR PRN 7 Days #28 tab PRN Reason: Pain Aspirin 81 mg PO BID 30 Days #60 tab No Action Pantoprazole [Protonix] 40 mg PO HS QUEtiapine [SEROquel] 12.5 mg PO HS PRN PRN Reason: INSOMNIA/ANXIETY prednisoLONE ACETATE 1% OPHTH [Pred Forte 1%] 1 drops BOTH EYES BID Levothyroxine Sodium [Synthroid] 12.5 mcg PO DAILY Ketorolac 0.5% Ophth Soln [Acular 0.5%] 1 drops BOTH EYES BID Discharge Medication List Pantoprazole [Protonix] 40 mg PO HS 03/16/21 [History] Ketorolac 0.5% Ophth Soln [Acular 0.5%] 1 drops BOTH EYES BID 04/04/22 [History] Levothyroxine Sodium [Synthroid] 12.5 mcg PO DAILY 04/04/22 [History] QUEtiapine [SEROquel] 12.5 mg PO HS PRN 04/04/22 [History] prednisoLONE ACETATE 1% OPHTH [Pred Forte 1%] 1 drops BOTH EYES BID 04/04/22 [History] Aspirin 81 mg PO BID 30 Days #60 tab 04/07/22 [Rx] Docusate [Colace] 100 mg PO BID #60 capsule 04/07/22 [Rx] HYDROcodone/APAP 5-325MG [[place] 5-325] 1 tab PO Q6HR PRN 7 Days #28 tab 04/07/22 [Rx] Follow up Appointment(s)/Referral(s): Soy Scruggs MD [Primary Care Provider] - 1-2 days Eliana Mcneill [NON-STAFF] - As Needed Yaniv Cool MD [STAFF PHYSICIAN] - 2 Weeks Activity/Diet/Wound Care/Special Instructions: Toe-touch weightbearing operative extremity with a walker. Up with assistance. Fall precautions. Patient may weight-bear to tolerance on the right upper extremity. She may use a sling as needed for comfort. She may use the right shoulder as tolerated. Pain management as needed. Aspirin 81 mg twice a day 4 weeks for blood clot prevention. Daily dressing changes to right hip. Follow-up in the office in [address] Cool. Call the office with any questions or concerns, Discharge Disposition: TRANSFER TO SNF/ECF
--- NOTE | 2022-04-07 13:48 | P.PN ---
Subjective Progress Note Date: 04/07/22 Patient seen and examined at bedside. She is pleasantly confused. Family members at bedside. She denies any pain. General: non toxic, no distress, appears at stated age Derm: warm, dry Head: atraumatic, normocephalic, symmetric Eyes: EOMI, no lid lag, anicteric sclera Mouth: no lip lesion, mucus membranes dry Cardiovascular: S1S2 reg, no murmur Lungs: Decreased bs b/l bilateral, no rhonchi, no rales , no accessory muscle use Ext: no gross muscle atrophy, trace edema, no contractures Neuro: no focal neuro deficits Psych: Alert, oriented to self and situation Assessment/Plan: 82-year-old female with right intertrochanteric hip fracture Fall - s/p IM nailing on 04/05. - PT/OT - Fall precautions Acute blood loss anemia - no indication for transfusion - follow CBC - check iron studies Toxic metabolic encephaloptehy - likely due to pain and delirium form pain meds - safe and supportive environment - frequent redirection Hypothyroidism - synthroid GERD - PPI Generalized debility - PT/OT after surgery - fall precautions TIA - ASA Plans for SNF with insurance authorization. Objective - Vital Signs Vital signs: Vital Signs Temp 98.3 F 04/07/22 07:35 Pulse 105 H 04/07/22 08:00 Resp 18 04/07/22 07:35 BP 92/54 04/07/22 07:35 Pulse Ox 96 04/07/22 07:35 FiO2 Intake & Output 04/06/22 04/07/22 04/07/22 18:59 06:59 18:59 Intake Total 25 Output Total 450 1050 Balance -450 -1050 25 Intake: Oral 25 Output: Urine 450 1050 Other: Voiding Method Indwelling Catheter Indwelling Catheter Indwelling Catheter - Labs CBC & Chem 7: 04/07/22 05:50 04/07/22 05:50 Labs: Abnormal Lab Results - Last 24 Hours (Table) 04/06/22 04/07/22 04/07/22 Range/Units 06:36 05:50 05:50 RBC 2.89 L (3.80-5.40) m/uL Hgb 9.0 L D (11.4-16.0) gm/dL Hct 26.8 L (34.0-46.0) % Sodium 132 L (137-145) mmol/L Glucose 104 H (74-99) mg/dL Iron 14 L (50-170) ug/dL TIBC 220 L (228-460) ug/dL % Saturation 6.32 L (12.00-45.00) Transferrin 157.0 L (204.0-354.0) mg/dL
[2022-04-07 15:16] VITALS: BP 127/61; TEMP 98.2
== END 2022-04-07 16:00 | DRG 480 ==
LOC: EC 12:14 → 4SSUR 14:34
PROVIDERS: ADMIT Orthopaedic Surgery Sports Medicine; ATTEND Orthopaedic Surgery Sports Medicine
PROC: 0QS606Z Reposition Right Upper Femur with Intramedullary Internal Fixation Device, Open Approach (ICD-10-PCS; principal; 2022-04-05 07:30)
DX: S72.141A Displaced intertrochanteric fracture of right femur, initial encounter for closed fracture (principal); G92.8 Other toxic encephalopathy; D62 Acute posthemorrhagic anemia; S42.034A Nondisplaced fracture of lateral end of right clavicle, initial encounter for closed fracture; W18.39XA Other fall on same level, initial encounter; Y93.89 Activity, other specified; Y92.512 Supermarket, store or market as the place of occurrence of the external cause; M54.2 Cervicalgia; K21.9 Gastro-esophageal reflux disease without esophagitis; I87.8 Other specified disorders of veins; F41.9 Anxiety disorder, unspecified; T50.995A Adverse effect of other drugs, medicaments and biological substances, initial encounter; R53.81 Other malaise; E03.9 Hypothyroidism, unspecified; Z98.890 Other specified postprocedural states; Z87.81 Personal history of (healed) traumatic fracture; Z79.890 Hormone replacement therapy; Z79.899 Other long term (current) drug therapy; Z88.0 Allergy status to penicillin; Z88.2 Allergy status to sulfonamides; Z87.01 Personal history of pneumonia (recurrent); Z87.440 Personal history of urinary (tract) infections; Z86.73 Personal history of transient ischemic attack (TIA), and cerebral infarction without residual deficits; Z82.49 Family history of ischemic heart disease and other diseases of the circulatory system
CPT/HCPCS: 36415; 71046; 72050; 73501; 73502; 80048; 80053; 81003; 82550; 82728; 83540; 83550; 83735; 84484; 85025; 85027; 86850; 86900; 86901; 96361; 96374; 96376; 99285

== ENCOUNTER 2022-04-08 18:09 | Inpatient (IN) | payer MEDICARE ==
[2022-04-08 18:15] LABS: Glucose,Whole Blood 131 mg/dL (70-110)
[2022-04-08] MEDS ORDERED: SODIUM CHLORIDE 0.9% 1,000 ML IV ONE (18:51)
[2022-04-08] MEDS ORDERED: LORazepam 2 MG/ML INJ IM STA ×2 (18:52→20:02)
[2022-04-08] MEDS ORDERED: ACETAMINOPHEN SUPPOSITORY 650 MG SUPP RECTAL STA (19:25)
--- NOTE | 2022-04-08 19:27 | ED ---
General Adult HPI - General Chief complaint: Altered Mental Status Stated complaint: AMS Time Seen by Provider: 04/08/22 18:12 Source: patient, RN notes reviewed, old records reviewed Mode of arrival: EMS Limitations: altered mental status - History of Present Illness Initial comments: Patient is an 82-year-old female with past medical history remarkable for GERD, UTIs, delirium, right hip fracture status post surgery and recent discharge, who was discharged with known confusion. She is pleasant at discharge. Returns today over concern for altered mental status. Patient remains somewhat delirious. She seems to be hallucinating. Also has a low-grade fever. Presents for further evaluation at this time. She is unable to provide any history but does feel a need to leave her alone. She is talking others in the room that I cannot see. His no other obvious acute complaints. - Related Data Home Medications Medication Instructions Recorded Confirmed Pantoprazole [Protonix] 40 mg PO HS 03/16/21 04/08/22 Ketorolac 0.5% Ophth Soln [Acular 1 drop BOTH EYES Q12H 04/04/22 04/08/22 0.5%] Levothyroxine Sodium [Synthroid] 12.5 mcg PO DAILY 04/04/22 04/08/22 prednisoLONE ACETATE 1% OPHTH 1 drop BOTH EYES HS 04/04/22 04/08/22 [Pred Forte 1%] ALPRAZolam [Xanax] 0.25 mg PO Q24H PRN 04/08/22 04/08/22 Aspirin 81 mg PO Q12H 04/08/22 04/08/22 Docusate [Colace] 100 mg PO Q12H 04/08/22 04/08/22 HYDROcodone/APAP 5-325MG [[place] 1 tab PO Q6H PRN 04/08/22 04/08/22 5-325] QUEtiapine [SEROquel] 12.5 mg PO HS PRN 04/08/22 04/08/22 Allergies Allergy/AdvReac Type Severity Reaction Status Date / Time Penicillins Allergy Unknown Verified 04/08/22 18:31 Sulfa (Sulfonamide Allergy Unknown Verified 04/08/22 18:31 Antibiotics) Review of Systems ROS Statement: Those systems with pertinent positive or pertinent negative responses have been documented in the HPI. ROS Other: All systems not noted in ROS Statement are negative. Past Medical History Past Medical History: GERD/Reflux, Pneumonia, Thyroid Disorder Additional Past Medical History / Comment(s): bowel perforation 2020, uterine prolpase with pessary, UTI, TIA, hypotyroidism History of Any Multi-Drug Resistant Organisms: None Reported Past Surgical History: Bowel Resection Additional Past Surgical History / Comment(s): left femur surgery, cataract, inguinal hernia surgery repair Past Anesthesia/Blood Transfusion Reactions: No Reported Reaction Past Psychological History: Anxiety Smoking Status: Never smoker Past Alcohol Use History: None Reported Past Drug Use History: None Reported - Past Family History Mother Family Medical History: Myocardial Infarction ([place]) General Exam - General Exam Comments Initial Comments: General: Appears in no acute distress. HEAD: Normal with no signs of head trauma. EYES: PERRLA, EOMI, conjunctiva normal, no discharge. Pupils 3 mm and equal bilaterally. ENT: Hearing grossly intact, normal oropharynx. RESPIRATORY: Clear breath sounds bilaterally. No wheezes, rales, or rhonchi. C/V: Slightly tachycardic. S1 and S2 auscultated. Peripheral pulses 2+ and intact throughout. No peripheral edema. ABD: Abd is soft, nontender, nondistended EXT: No obvious deformity. Surgical site over the right lateral thigh appears to be healing well. Mild bruising. No induration. No cellulitis. No fluctuance. No discharge. SKIN: Intact surgical site of right lateral thigh from recent surgery. NEURO: Alert and oriented times one at least. Not cooperative with exam. Able to move all 4 extremities. No obvious deficits. Limitations: altered mental status Course Vital Signs 04/08/22 04/08/22 18:17 21:10 Temperature 100.3 F H 100.4 F H Pulse Rate 109 H Respiratory 20 Rate Blood Pressure 123/59 O2 Sat by Pulse 96 Oximetry Medical Decision Making - Medical Decision Making Based on the patient's presentation and physical exam, she is presenting with delirium, which is similar to previous presentations. Also appears to have a low-grade fever. Presents for further evaluation at this time. Had recent right hip surgery. Was discharged home with similar presentation per notes. Presented originally with similar presentation prior to fall based on nursing staff that were present when she presented last time. However we will obtain a broad workup for altered mental status and fever. Vital signs otherwise unrem arkable. She'll be given Ativan due to her agitation. We'll obtain CT imaging of the brain, as well as x-rays of the chest, pelvis, right thigh. We'll obtain further history from her nursing facility. Patient's lavatory studies are relatively unremarkable for any acute findings. Urine is clean except for some casts. Covid is negative. Troponin is undetectable. Ammonia is undetectable. Patient does have a normocytic anemia with a hemoglobin of 8.5 which is chronic and stable. CT brain was eventually obtained and showed no acute intracranial process. Chest x-ray showed no acute cardiopulmonary process. Femur and hip x-rays appear within normal limits. Patient required multiple attempts to obtain EKG which showed no signs of obvious acute ischemia. There is a good deal of baseline artifact due to noncompliance with the testing. Nursing staff talked with both the patient's daughter, who states that the patient had similar delirious episodes when she was last admitted, as well as when she last had her previous hip replaced. They're uncertain what causes them. Patient staff also was able to contact the patient's nursing facility, who stated that they sent her here because they could not take care of her. She is not taking her medications. She is not compliant with staff. She removes bandages. They wanted her for repeat placement. At this time I believe it is best to admit the patient to the hospital for possible new placement. Patient did have a low-grade fever of unknown etiology. Labs are unremarkable. We'll continue to monitor. Antibiotics will be held at this time. Blood cultures were sent. Surgical site appears well and within normal limits. No concern for infection at this time. I spoke with the patient's admitting physician, Dr. Ashton who accepted the patient was in agreement with this plan. Patient was admitted in stable condition. Sitter was ordered. - Lab Data Result diagrams: 04/08/22 19:04 04/08/22 19:04 Lab Results 04/08/22 04/08/22 04/08/22 Range/Units 18:13 19:04 19:04 WBC 8.2 (3.8-10.6) k/uL RBC 2.85 L (3.80-5.40) m/uL Hgb 8.5 L (11.4-16.0) gm/dL Hct 26.0 L (34.0-46.0) % MCV 91.4 (80.0-100.0) fL MCH 29.7 (25.0-35.0) pg MCHC 32.5 (31.0-37.0) g/dL RDW 13.9 (11.5-15.5) % Plt Count 242 (150-450) k/uL MPV 10.3 Neutrophils % 79 % Lymphocytes % 13 % Monocytes % 5 % Eosinophils % 1 % Basophils % 0 % Neutrophils # 6.5 (1.3-7.7) k/uL Lymphocytes # 1.1 (1.0-4.8) k/uL Monocytes # 0.4 (0-1.0) k/uL Eosinophils # 0.1 (0-0.7) k/uL Basophils # 0.0 (0-0.2) k/uL PT 10.2 (9.0-12.0) sec INR 0.9 (<1.2) APTT 24.2 (22.0-30.0) sec Sodium (137-145) mmol/L Potassium (3.5-5.1) mmol/L Chloride (98-107) mmol/L Carbon Dioxide (22-30) mmol/L Anion Gap mmol/L BUN (7-17) mg/dL Creatinine (0.52-1.04) mg/dL Est GFR (CKD-EPI)AfAm (>60 ml/min/1.73 sqM) Est GFR (CKD-EPI)NonAf (>60 ml/min/1.73 sqM) Glucose (74-99) mg/dL POC Glucose (mg/dL) 131 H (70-110) mg/dL POC Glu Supervisor Powdered Sugar ID Jose Alfredo Thurman Plasma Lactic Acid Dilip (0.7-2.0) mmol/L Calcium (8.4-10.2) mg/dL Total Bilirubin (0.2-1.3) mg/dL AST (14-36) U/L ALT (4-34) U/L Alkaline Phosphatase (38-126) U/L Ammonia (<30) umol/L Troponin I (0.000-0.034) ng/mL Total Protein (6.3-8.2) g/dL Albumin (3.5-5.0) g/dL Urine Color Urine Appearance (Clear) Urine pH (5.0-8.0) Ur Specific [place] (1.001-1.035) Urine Protein (Negative) Urine Glucose (UA) (Negative) Urine Ketones (Negative) Urine Blood (Negative) Urine Nitrite (Negative) Urine Bilirubin (Negative) Urine Urobilinogen (<2.0) mg/dL Ur Leukocyte Esterase (Negative) Urine RBC (0-5) /hpf Urine WBC (0-5) /hpf Hyaline Casts (0-2) /lpf Urine Mucus (None) /hpf Urine Opiates Screen (NotDetected) Ur Oxycodone Screen (NotDetected) Urine Methadone Screen (NotDetected) Ur Propoxyphene Screen (NotDetected) Ur Barbiturates Screen (NotDetected) U Tricyclic Antidepress (NotDetected) Ur Phencyclidine Scrn (NotDetected) Ur Amphetamines Screen (NotDetected) U Methamphetamines Scrn (NotDetected) U Benzodiazepines Scrn (NotDetected) Urine Cocaine Screen (NotDetected) U Marijuana (THC) Screen (NotDetected) Coronavirus (PCR) (Not Detectd) 04/08/22 04/08/22 04/08/22 Range/Units 19:04 19:04 19:04 WBC (3.8-10.6) k/uL RBC (3.80-5.40) m/uL Hgb (11.4-16.0) gm/dL Hct (34.0-46.0) % MCV (80.0-100.0) fL MCH (25.0-35.0) pg MCHC (31.0-37.0) g/dL RDW (11.5-15.5) % Plt Count (150-450) k/uL MPV Neutrophils % % Lymphocytes % % Monocytes % % Eosinophils % % Basophils % % Neutrophils # (1.3-7.7) k/uL Lymphocytes # (1.0-4.8) k/uL Monocytes # (0-1.0) k/uL Eosinophils # (0-0.7) k/uL Basophils # (0-0.2) k/uL PT (9.0-12.0) sec INR (<1.2) APTT (22.0-30.0) sec Sodium 136 L (137-145) mmol/L Potassium 4.1 (3.5-5.1) mmol/L Chloride 101 (98-107) mmol/L Carbon Dioxide 23 (22-30) mmol/L Anion Gap 12 mmol/L BUN 14 (7-17) mg/dL Creatinine 0.62 (0.52-1.04) mg/dL Est GFR (CKD-EPI)AfAm >90 (>60 ml/min/1.73 sqM) Est GFR (CKD-EPI)NonAf 86 (>60 ml/min/1.73 sqM) Glucose 125 H (74-99) mg/dL POC Glucose (mg/dL) (70-110) mg/dL POC Glu Supervisor Powdered Sugar ID Plasma Lactic Acid Dilip 1.3 (0.7-2.0) mmol/L Calcium 9.6 (8.4-10.2) mg/dL Total Bilirubin 0.8 (0.2-1.3) mg/dL AST 29 (14-36) U/L ALT 12 (4-34) U/L Alkaline Phosphatase 109 (38-126) U/L Ammonia <9 (<30) umol/L Troponin I <0.012 (0.000-0.034) ng/mL Total Protein 6.0 L (6.3-8.2) g/dL Albumin 3.3 L (3.5-5.0) g/dL Urine Color Urine Appearance (Clear) Urine pH (5.0-8.0) Ur Specific [place] (1.001-1.035) Urine Protein (Negative) Urine Glucose (UA) (Negative) Urine Ketones (Negative) Urine Blood (Negative) Urine Nitrite (Negative) Urine Bilirubin (Negative) Urine Urobilinogen (<2.0) mg/dL Ur Leukocyte Esterase (Negative) Urine RBC (0-5) /hpf Urine WBC (0-5) /hpf Hyaline Casts (0-2) /lpf Urine Mucus (None) /hpf Urine Opiates Screen (NotDetected) Ur Oxycodone Screen (NotDetected) Urine Methadone Screen (NotDetected) Ur Propoxyphene Screen (NotDetected) Ur Barbiturates Screen (NotDetected) U Tricyclic Antidepress (NotDetected) Ur Phencyclidine Scrn (NotDetected) Ur Amphetamines Screen (NotDetected) U Methamphetamines Scrn (NotDetected) U Benzodiazepines Scrn (NotDetected) Urine Cocaine Screen (NotDetected) U Marijuana (THC) Screen (NotDetected) Coronavirus (PCR) (Not Detectd) 04/08/22 04/08/22 Range/Units 19:04 21:09 WBC (3.8-10.6) k/uL RBC (3.80-5.40) m/uL Hgb (11.4-16.0) gm/dL Hct (34.0-46.0) % MCV (80.0-100.0) fL MCH (25.0-35.0) pg MCHC (31.0-37.0) g/dL RDW (11.5-15.5) % Plt Count (150-450) k/uL MPV Neutrophils % % Lymphocytes % % Monocytes % % Eosinophils % % Basophils % % Neutrophils # (1.3-7.7) k/uL Lymphocytes # (1.0-4.8) k/uL Monocytes # (0-1.0) k/uL Eosinophils # (0-0.7) k/uL Basophils # (0-0.2) k/uL PT (9.0-12.0) sec INR (<1.2) APTT (22.0-30.0) sec Sodium (137-145) mmol/L Potassium (3.5-5.1) mmol/L Chloride (98-107) mmol/L Carbon Dioxide (22-30) mmol/L Anion Gap mmol/L BUN (7-17) mg/dL Creatinine (0.52-1.04) mg/dL Est GFR (CKD-EPI)AfAm (>60 ml/min/1.73 sqM) Est GFR (CKD-EPI)NonAf (>60 ml/min/1.73 sqM) Glucose (74-99) mg/dL POC Glucose (mg/dL) (70-110) mg/dL POC Glu Supervisor Powdered Sugar ID Plasma Lactic Acid Dilip (0.7-2.0) mmol/L Calcium (8.4-10.2) mg/dL Total Bilirubin (0.2-1.3) mg/dL AST (14-36) U/L ALT (4-34) U/L Alkaline Phosphatase (38-126) U/L Ammonia (<30) umol/L Troponin I (0.000-0.034) ng/mL Total Protein (6.3-8.2) g/dL Albumin (3.5-5.0) g/dL Urine Color Yellow Urine Appearance Clear (Clear) Urine pH 7.5 (5.0-8.0) Ur Specific [place] 1.015 (1.001-1.035) Urine Protein 1+ H (Negative) Urine Glucose (UA) Negative (Negative) Urine Ketones 3+ H (Negative) Urine Blood Negative (Negative) Urine Nitrite Negative (Negative) Urine Bilirubin Negative (Negative) Urine Urobilinogen <2.0 (<2.0) mg/dL Ur Leukocyte Esterase Negative (Negative) Urine RBC 1 (0-5) /hpf Urine WBC 2 (0-5) /hpf Hyaline Casts 4 H (0-2) /lpf Urine Mucus Occasional H (None) /hpf Urine Opiates Screen Detected H (NotDetected) Ur Oxycodone Screen Not Detected (NotDetected) Urine Methadone Screen Not Detected (NotDetected) Ur Propoxyphene Screen Not Detected (NotDetected) Ur Barbiturates Screen Not Detected (NotDetected) U Tricyclic Antidepress Not Detected (NotDetected) Ur Phencyclidine Scrn Not Detected (NotDetected) Ur Amphetamines Screen Not Detected (NotDetected) U Methamphetamines Scrn Not Detected (NotDetected) U Benzodiazepines Scrn Not Detected (NotDetected) Urine Cocaine Screen Not Detected (NotDetected) U Marijuana (THC) Screen Not Detected (NotDetected) Coronavirus (PCR) Not Detected (Not Detectd) - EKG Data -: EKG Interpreted by Me EKG Comments: 12-lead Electrocardiogram Interpretation Note EKG was reviewed and interpreted by myself. 12-lead ECG performed at 2212 is interpreted by me as revealing sinus tachycardia at a rate of 108 beats per minute. [place] is normal. FL interval is 147 ms, QRS duration is 80 ms, QTc is 383 ms. There were no obvious acute ST or T wave abnormalities to suggest myocardial ischemia or injury. R wave progression across the precordium was satisfactory. By my interpretation this EKG is non-diagnostic for acute ischemia. Interpretation was made difficult due to the great deal of baseline artifact secondary to patient movement. Disposition Clinical Impression: Acute delirium, Agitation, Altered mental status Narrative: admit for placement Disposition: ADMITTED IP TO THIS [facility] Condition: Stable Referrals: Soy Scruggs MD [Primary Care Provider] - 1-2 days Time of Disposition: 22:50
[2022-04-08 19:30] LABS: Lactic Acid, Venous 1.3 mmol/L (0.7-2.0)
[2022-04-08 19:32] LABS: Basophils % (A) 0 %; Eosinophils # (A) 0.1 k/uL (0-0.7); Eosinophils % (A) 1 %; HGB 8.5 gm/dL (11.4-16.0); Lymphocytes # (A) 1.1 k/uL (1.0-4.8); Lymphocytes % (A) 13 %; MCH 29.7 pg (25.0-35.0); MCHC 32.5 g/dL (31.0-37.0); MCV 91.4 fL (80.0-100.0); Mean Platelet Volume 10.3; Monocytes # (A) 0.4 k/uL (0-1.0); Monocytes % (A) 5 %; Neutrophils # (A) 6.5 k/uL (1.3-7.7); Neutrophils % (A) 79 %; Platelet Count 242 k/uL (150-450); RBC 2.85 m/uL (3.80-5.40); RDW 13.9 % (11.5-15.5); WBC 8.2 k/uL (3.8-10.6)
[2022-04-08 19:47] LABS: ALT 12 U/L (4-34); AST 29 U/L (14-36); African American GFR (CKD) >90 (>60 ml/min/1.73 sqM); Albumin 3.3 g/dL (3.5-5.0); Alkaline Phosphatase 109 U/L (38-126); Anion Gap 12 mmol/L; Blood Urea Nitrogen 14 mg/dL (7-17); Calcium 9.6 mg/dL (8.4-10.2); Carbon Dioxide 23 mmol/L (22-30); Chloride 101 mmol/L (98-107); Glucose 125 mg/dL (74-99); Non-African American GFR(CKD) 86 (>60 ml/min/1.73 sqM); Potassium 4.1 mmol/L (3.5-5.1); Sodium 136 mmol/L (137-145); Total Bilirubin 0.8 mg/dL (0.2-1.3)
[2022-04-08 19:52] LABS: INR 0.9 (<1.2); Partial Thromboplastin Time 24.2 sec (22.0-30.0); Prothrombin Time 10.2 sec (9.0-12.0)
[2022-04-08] MEDS ORDERED: HALOPERIDOL LACTATE 5 MG/ML 1 ML VIAL IVP STA (20:00)
[2022-04-08 21:48] LABS: Appearance,Urine Clear (Clear); Bilirubin,Urine Negative (Negative); Blood,Urine Negative (Negative); Color,Urine Yellow; Glucose,Urine (UA) Negative (Negative); Hyaline Casts,Urine 4 /lpf (0-2); Ketones,Urine 3+ (Negative); Leukocyte Esterase,Urine Negative (Negative); Mucus,Urine Occasional /hpf; Nitrite,Urine Negative (Negative); PH, Urine 7.5 (5.0-8.0); Protein,Urine 1+ (Negative); RBC,Urine 1 /hpf (0-5); Specific Gravity,Urine 1.015 (1.001-1.035); Urobilinogen,Urine <2.0 mg/dL (<2.0); WBC,Urine 2 /hpf (0-5)
[2022-04-08 21:54] LABS: Amphetamine Screen,Urine Not Detected (NotDetected); Barbiturate Screen,Urine Not Detected (NotDetected); Benzodiazepines Screen,Urine Not Detected (NotDetected); Cocaine Screen,Urine Not Detected (NotDetected); Methadone Screen, Urine Not Detected (NotDetected); Opiate Screen,Urine Detected (NotDetected); Oxycodone Screen, Urine Not Detected (NotDetected); Phencyclidine Screen,Urine Not Detected (NotDetected); Tricyclic Antidepressant,Urine Not Detected (NotDetected); Urn Cannabinoid Scrn Not Detected (NotDetected)
--- NOTE | 2022-04-08 22:08 | CT ---
EXAMINATION TYPE: CT brain wo con DATE OF EXAM: 04/08/2022 COMPARISON: None HISTORY: AMS CT DLP: 1467.4 mGycm Automated exposure control for dose reduction was used. Ventricles have fairly normal size. There is cerebral cortical atrophy. There is no mass effect or mi dline shift. There is hypodensity in the periventricular white matter. Calvarium is intact. Skull bas e is intact. There is normal aeration of the mastoid sinuses. 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 No acute intracranial abnormality.
--- NOTE | 2022-04-08 22:20 | XR ---
EXAMINATION TYPE: XR Hip RT and AP Pelvis DATE OF EXAM: 04/08/2022 COMPARISON: 04/04/2022 HISTORY: Postop TECHNIQUE: 3 views FINDINGS: There is intramedullary roger and transverse screw fixing the intertrochanteric fracture of t he right femur in anatomic position. Pelvic ring is intact. IMPRESSION: There is satisfactory fixation of the right femoral fracture compared to initial exam. No competition process seen. No change in position compared to 04/05/2022.
--- NOTE | 2022-04-08 22:22 | XR ---
EXAMINATION TYPE: XR femur RT DATE OF EXAM: 04/08/2022 COMPARISON: 04/05/2022 HISTORY: Pain. Fever TECHNIQUE: 4 views FINDINGS: There is intramedullary roger and transverse screw fixing the intertrochanteric fracture of t he right femur in anatomic position. There is narrowing of the knee joint spaces. No focal bone destr uction. There are skin freddy. IMPRESSION: Satisfactory fixation. No complication process seen.
--- NOTE | 2022-04-08 22:23 | XR ---
EXAMINATION TYPE: XR chest 2V DATE OF EXAM: 04/08/2022 COMPARISON: 04/04/2022 HISTORY: Altered mental status TECHNIQUE: FINDINGS: There is no heart failure nor confluent pneumonic infiltrate. Costophrenic angles are clear . There is slight coarsening of interstitial markings. IMPRESSION: Mild increased interstitial markings but no pulmonary consolidation or heart failure.
[2022-04-08] MEDS ORDERED: NALOXONE 0.4 MG/ML 1 ML VIAL IV PRN (23:05)
[2022-04-08] MEDS ORDERED: HYDROcodone/APAP 5-325MG 1 EACH TAB PO PRN (23:07)
[2022-04-08] MEDS ORDERED: QUEtiapine 25 MG TAB PO PRN (23:07)
[2022-04-09] MEDS: DOCUSATE 100 MG CAP PO SCH ×3 (00:43→21:34)
[2022-04-09] MEDS: ASPIRIN 81 MG PO SCH ×3 (00:43→21:33)
[2022-04-09] MEDS: SODIUM CHLORIDE 0.9% 1,000 ML IV SCH ×4 (00:43→22:21)
--- NOTE | 2022-04-09 04:16 | P.HPIM ---
History of Present Illness H&P Date: 04/08/22 The patient is a 82-year-old female with a PMH of recent right hip fracture status post closed reduction with nailing on 04/05, with subsequent discharge to [facility] on 04/07, who was now sent from rehab due to worsening mentation. No history could be obtained from the patient due to altered mentation with history obtained from EMS documentation as well as the ED provider and documentation. As per the rehab facility staff, the patient has been increasingly aggressive, ripping out her IVs and very resistant to care and intervention. The patient was lethargic at time of interview with no meaningful history obtained. Laboratory evaluation revealed an unremarkable urinalysis and urine toxicology which chest x-ray showing mild increase interstitial markings without consolidation or heart failure. The patient's T-max in the emergency room was 100.3F with pulse 109. Review of systems: Unable to perform due to mental status Physical examination: General: non toxic, no distress, appears at stated age, normal weight Derm: no unusual rashes/lesions, warm Head: atraumatic, normocephalic, symmetric Eyes: EOMI, no lid lag, anicteric sclera, pupils equal round reactive to light ENT: Nose and ears atraumatic Neck: No cervical lymphadenopathy, trachea midline, supple Mouth: no lip lesion, mucus membranes moist Cardiovascular: S1S2 reg, no murmur, positive dorsalis pedis pulse bilateral, no edema Lungs: CTA bilateral, no rhonchi, no rales, no accessory muscle use Abdominal: soft, nontender to palpation, no guarding Ext: no gross muscle atrophy, no contractures Neuro: CN II-XI grossly intact, no gross focal neuro deficits Psych: Lethargic, answers basic questions with significant stimulation Assessment/plan Altered mental status, unclear etiology, possibly toxic metabolic encephalopathy in setting of underlying infection -Low-grade temperature noted with no clear source for infection -WBC count 8.2 with lactic acid 1.3 -UA unremarkable -Neurology and PT consult for now -Fall precautions -Aspiration precautions DVT prophylaxis -Heparin subq The patient is admitted with an anticipated greater than 2 midnight stay for evaluation of AMS CODE STATUS: Full Code Anticipated discharge date: in am Anticipated discharge place: [facility] Past Medical History Past Medical History: GERD/Reflux, Pneumonia, Thyroid Disorder Additional Past Medical History / Comment(s): bowel perforation 2019, uterine prolpase with pessary, UTI, TIA, hypotyroidism History of Any Multi-Drug Resistant Organisms: None Reported Past Surgical History: Bowel Resection Additional Past Surgical History / Comment(s): left femur surgery, cataract, inguinal hernia surgery repair Past Anesthesia/Blood Transfusion Reactions: No Reported Reaction Past Psychological History: Anxiety Smoking Status: Never smoker Past Alcohol Use History: None Reported Past Drug Use History: None Reported - Past Family History Mother Family Medical History: Myocardial Infarction ([place]) Medications and Allergies Home Medications Medication Instructions Recorded Confirmed Type Pantoprazole [Protonix] 40 mg PO HS 03/16/21 04/08/22 History Ketorolac 0.5% Ophth Soln [Acular 1 drop BOTH EYES Q12H 04/04/22 04/08/22 History 0.5%] Levothyroxine Sodium [Synthroid] 12.5 mcg PO DAILY 04/04/22 04/08/22 History prednisoLONE ACETATE 1% OPHTH 1 drop BOTH EYES HS 04/04/22 04/08/22 History [Pred Forte 1%] ALPRAZolam [Xanax] 0.25 mg PO Q24H PRN 04/08/22 04/08/22 History Aspirin 81 mg PO Q12H 04/08/22 04/08/22 History Docusate [Colace] 100 mg PO Q12H 04/08/22 04/08/22 History HYDROcodone/APAP 5-325MG [[place] 1 tab PO Q6H PRN 04/08/22 04/08/22 History 5-325] QUEtiapine [SEROquel] 12.5 mg PO HS PRN 04/08/22 04/08/22 History Allergies Allergy/AdvReac Type Severity Reaction Status Date / Time Penicillins Allergy Unknown Verified 04/08/22 18:31 Sulfa (Sulfonamide Allergy Unknown Verified 04/08/22 18:31 Antibiotics) Physical Exam Vitals: Vital Signs Temp Pulse Resp BP Pulse Ox 04/08/22 23:23 98.4 F 92 16 121/68 93 L 04/08/22 21:10 100.4 F H 04/08/22 18:17 100.3 F H 109 H 20 123/59 96 Intake and Output 04/08/22 04/08/22 04/09/22 14:59 22:59 06:59 Output Total 200 Balance -200 Output: Urine 200 Straight 200 Other: Weight 60.7 kg Results CBC & Chem 7: 04/08/22 19:04 04/08/22 19:04 Labs: Abnormal Lab Results - Last 24 Hours (Table) 04/08/22 04/08/22 04/08/22 Range/Units 18:13 19:04 19:04 RBC 2.85 L (3.80-5.40) m/uL Hgb 8.5 L (11.4-16.0) gm/dL Hct 26.0 L (34.0-46.0) % Sodium 136 L (137-145) mmol/L Glucose 125 H (74-99) mg/dL POC Glucose (mg/dL) 131 H (70-110) mg/dL Total Protein 6.0 L (6.3-8.2) g/dL Albumin 3.3 L (3.5-5.0) g/dL Urine Protein (Negative) Urine Ketones (Negative) Hyaline Casts (0-2) /lpf Urine Mucus (None) /hpf Urine Opiates Screen (NotDetected) 04/08/22 Range/Units 21:09 RBC (3.80-5.40) m/uL Hgb (11.4-16.0) gm/dL Hct (34.0-46.0) % Sodium (137-145) mmol/L Glucose (74-99) mg/dL POC Glucose (mg/dL) (70-110) mg/dL Total Protein (6.3-8.2) g/dL Albumin (3.5-5.0) g/dL Urine Protein 1+ H (Negative) Urine Ketones 3+ H (Negative) Hyaline Casts 4 H (0-2) /lpf Urine Mucus Occasional H (None) /hpf Urine Opiates Screen Detected H (NotDetected)
[2022-04-09] MEDS: LEVOTHYROXINE 25 MCG TAB PO SCH (04:50)
[2022-04-09 05:44] LABS: Basophils # (A) 0.1 k/uL (0-0.2); Basophils % (A) 1 %; Eosinophils # (A) 0.4 k/uL (0-0.7); Eosinophils % (A) 5 %; HCT 23.7 % (34.0-46.0); HGB 7.5 gm/dL (11.4-16.0); Lymphocytes # (A) 1.7 k/uL (1.0-4.8); Lymphocytes % (A) 24 %; MCH 28.7 pg (25.0-35.0); MCHC 31.5 g/dL (31.0-37.0); MCV 91.3 fL (80.0-100.0); Mean Platelet Volume 10.3; Monocytes # (A) 0.4 k/uL (0-1.0); Monocytes % (A) 6 %; Neutrophils # (A) 4.3 k/uL (1.3-7.7); Neutrophils % (A) 61 %; Platelet Count 221 k/uL (150-450); RBC 2.59 m/uL (3.80-5.40); RDW 13.4 % (11.5-15.5)
[2022-04-09 06:05] LABS: African American GFR (CKD) >90 (>60 ml/min/1.73 sqM); Anion Gap 7 mmol/L; Blood Urea Nitrogen 15 mg/dL (7-17); Calcium 8.8 mg/dL (8.4-10.2); Carbon Dioxide 25 mmol/L (22-30); Chloride 106 mmol/L (98-107); Glucose 99 mg/dL (74-99); Non-African American GFR(CKD) 88 (>60 ml/min/1.73 sqM); Potassium 4.3 mmol/L (3.5-5.1); Sodium 138 mmol/L (137-145)
[2022-04-09] MEDS: HEPARIN SODIUM,PORCINE/PF 5,000 UNIT/0.5 ML SYRINGE SQ SCH ×2 (07:52→15:29)
--- NOTE | 2022-04-09 15:18 | P.PN ---
Subjective Progress Note Date: 04/09/22 Principal diagnosis: Confusion Patient is a 82-year-old female with past medical history of right hip fracture status post closed reduction with nailing on 04/05. She was subsequently discharge to medical [place] and now returns due to confusion and agitation and and complaints by nursing staff of change in mental status. 04/09/2022: Patient does not appear to be in any respiratory distress today. Her mentation is improved and she has does not appear to be combative or agitat ed at this time however she still remains confused and altered patient's family members at bedside discussed with family members. They report that patient did have an episode similar to this in the past with previous surgery due to anesthesia and pain meds. Patient denies any cough no fevers no dysuria and no chills no nausea vomiting or diarrhea. Objective - Vital Signs Vital signs: Vital Signs Temp 98.6 F 04/09/22 11:23 Pulse 92 04/09/22 11:23 Resp 16 04/09/22 11:23 BP 121/77 04/09/22 11:23 Pulse Ox 96 04/09/22 11:23 FiO2 Intake & Output 04/08/22 04/09/22 04/09/22 18:59 06:59 18:59 Output Total 200 Balance -200 Weight 60.7 kg 60.7 kg Output: Urine 200 Straight 200 Other: # Voids 1 1 - Exam Physical examination: General: non toxic, no distress, appears at stated age, normal weight Derm: no unusual rashes/lesions, warm Head: atraumatic, normocephalic, symmetric Eyes: EOMI, no lid lag, anicteric sclera, pupils equal round reactive to light ENT: Nose and ears atraumatic Neck: No cervical lymphadenopathy, trachea midline, supple Mouth: no lip lesion, mucus membranes moist Cardiovascular: S1S2 reg, no murmur, positive dorsalis pedis pulse bilateral, no edema Lungs: CTA bilateral, no rhonchi, no rales, no accessory muscle use Abdominal: soft, nontender to palpation, no guarding Ext: no gross muscle atrophy, no contractures Neuro: CN II-XI grossly intact, no gross focal neuro deficits Psych: Lethargic, answers basic questions with significant stimulation - Labs CBC & Chem 7: 04/09/22 04:02 04/09/22 04:54 Labs: Abnormal Lab Results - Last 24 Hours (Table) 04/08/22 04/08/22 04/08/22 Range/Units 18:13 19:04 19:04 RBC 2.85 L (3.80-5.40) m/uL Hgb 8.5 L (11.4-16.0) gm/dL Hct 26.0 L (34.0-46.0) % Sodium 136 L (137-145) mmol/L Glucose 125 H (74-99) mg/dL POC Glucose (mg/dL) 131 H (70-110) mg/dL Total Protein 6.0 L (6.3-8.2) g/dL Albumin 3.3 L (3.5-5.0) g/dL Urine Protein (Negative) Urine Ketones (Negative) Hyaline Casts (0-2) /lpf Urine Mucus (None) /hpf Urine Opiates Screen (NotDetected) 04/08/22 04/09/22 Range/Units 21:09 04:02 RBC 2.59 L (3.80-5.40) m/uL Hgb 7.5 L (11.4-16.0) gm/dL Hct 23.7 L (34.0-46.0) % Sodium (137-145) mmol/L Glucose (74-99) mg/dL POC Glucose (mg/dL) (70-110) mg/dL Total Protein (6.3-8.2) g/dL Albumin (3.5-5.0) g/dL Urine Protein 1+ H (Negative) Urine Ketones 3+ H (Negative) Hyaline Casts 4 H (0-2) /lpf Urine Mucus Occasional H (None) /hpf Urine Opiates Screen Detected H (NotDetected) Assessment and Plan Assessment: Acute metabolic encephalopathy -Possibly secondary to medication side effect of opioids superimposed on underlying dementia -Patient's mentation has improved with removal of opioid medications. We'll continue to avoid -Infectious workup negative to date -Haldol when necessary for agitation and behavioral issues Recent right hip fracture status post closed reduction with nailing performed on 04/05/2022 -Continue with Tylenol for pain control Anemia -Patient has no signs of GI bleeding at this time. However patient's hemoglobin is 7.5. Which has decreased from previous 8.5 we'll continue to trend and transfuse for hemoglobin less than 7 Left clavicle fracture -This was seen on previous imaging on previous hospital admission. At this time being managed conservatively nonsurgically. Continue to maintain patient in a sling and continue with pain control with Tylenol DVT prophylaxis: Heparin subcu Diet: Regular (1) Acute delirium Current Visit: Yes Status: Acute Code(s): R41.0 - DISORIENTATION, UNSPECIFIED SNOMED Code(s): 8804375
--- NOTE | 2022-04-09 16:19 | P.CNNES ---
History of Present Illness Consult date: 04/09/22 Requesting physician: Lauro Ashton Reason for Consult: Altered mental status History of Present Illness: Patient is a 82-year-old female came to the hospital by ambulance yesterday at 6:09 PM. Patient is awake and alert, but quite confused, not able to provide details of the history as mentioned in detail below. As per EMS flow sheet, when they arrived to the [facility], reported patient had a recent fractured hip and clavicle and altered mental status. Patient was found laying in the bed, talking about some "poor girl who needed to go to the hospital". Staff mentioned that patient arrived yesterday after being released from hospital after having surgery on Sunday. Patient was altered upon arrival but patient's family stated that she was "sharp as attack". Staff mentioned that patient was also refusing to take any of her medications. Patient was yelling about how she needed to get dressed and go home and that EMS had the wrong patient and that she was okay and did not need to go to back to the hospital. Patient fought crew members and getting vitals but eventually patient was hooked up on the monitor and vitals obtained. Patient had sinus tachycardia. Patient was very uncooperative and pulling at the blood pressure cuff, pulling and the electrodes. Patient was alert oriented 3 and denied any neck back or chest or abdominal pain. No difficulty breathing. Patient continued to yell at the "girl in the corner, who wouldn't shut up". Patient's blood pressure was 117/52, pulse rate 114, respirations 16, saturation 95% and blood glucose 156. Patient's CT head showed cerebral atrophy and chronic small vessel ischemia. No acute intracranial abnormality. On my review there is evidence of multiple small lacune's involving bilateral basal ganglia, right more than left. Blood test shows normal WBC hemoglobin 8.5, platelets 242, PT/PTT normal, electrolytes, renal functions and hepatic panel is normal. Ammonia normal. UA is negative. Urine drug screen positive for opiates. Coronal virus PCR negative. Patient's last hemoglobin A1c 6.3 on 10/03/2021. Patient states that she fell and broke her femur at [employer]. She states that she went home and she came here because she states "I did not like the way they were treating me". Then she said that I might lose my foot and get a new leg. She said that she lost a leg in [place] in an accident. "They took some off my femur". Then she asked "how much money is left in my bank". She states that tomorrow is her 50th something anniversary. Patient's home medications include Seroquel 12.5 mg at bedtime, Protonix 40 mg, levothyroxine, [place], aspirin 81 mg and Xanax 0.25 mg as needed. X-ray of the hip showed satisfactory fixation of the right femoral fracture compared to initial exam. No change from prior exam. EKG shows sinus tachycardia with occasional supraventricular premature complexes. I spoke to patient's family, and it appears that patient has no previous history of dementia. She sometimes gets confused minimally, but nothing major. Last Sunday on 04/02/2022 she was at a [employer] with her family and she was perfectly fine. Patient fell at [employer] on 04/04/2022 when she was trying a shoe, she bent forwards and lost balance and fell forward. patient apparently was receiving some opiates postoperatively and also in the [place] which resulted in acute delirium. Patient has received Ativan 2 mg at 6:53 PM yesterday, and then 1 mg at 8:03 PM. in the ER for acute confusion, also Haldol 2.5 mg IV push at 8 PM. Review of Systems Constitutional: Denies chills, Denies fever Ears, nose, mouth and throat: Denies headache, Denies sore throat Cardiovascular: Denies chest pain, Denies shortness of breath Respiratory: Denies cough Gastrointestinal: Denies abdominal pain, Denies diarrhea, Denies nausea, Denies vomiting Genitourinary: Denies dysuria, Denies hematuria Musculoskeletal: Denies myalgias Integumentary: Denies pruritus, Denies rash Neurological: Reports as per HPI Psychiatric: Reports confusion, Denies anxiety, Denies depression Hematologic/Lymphatic: Denies easy bleeding Allergic/Immunologic: Denies wheezing Past Medical History Past Medical History: GERD/Reflux, Pneumonia, Thyroid Disorder Additional Past Medical History / Comment(s): bowel perforation 2019, uterine prolpase with pessary, UTI, TIA, hypotyroidism History of Any Multi-Drug Resistant Organisms: None Reported Past Surgical History: Bowel Resection Additional Past Surgical History / Comment(s): left femur surgery, cataract, inguinal hernia surgery repair Past Anesthesia/Blood Transfusion Reactions: No Reported Reaction Past Psychological History: Anxiety Smoking Status: Never smoker Past Alcohol Use History: None Reported Past Drug Use History: None Reported - Past Family History Mother Family Medical History: Myocardial Infarction ([place]) Medications and Allergies Home Medications Medication Instructions Recorded Confirmed Type Pantoprazole [Protonix] 40 mg PO HS 03/16/21 04/08/22 History Ketorolac 0.5% Ophth Soln [Acular 1 drop BOTH EYES Q12H 04/04/22 04/08/22 History 0.5%] Levothyroxine Sodium [Synthroid] 12.5 mcg PO DAILY 04/04/22 04/08/22 History prednisoLONE ACETATE 1% OPHTH 1 drop BOTH EYES HS 04/04/22 04/08/22 History [Pred Forte 1%] ALPRAZolam [Xanax] 0.25 mg PO Q24H PRN 04/08/22 04/08/22 History Aspirin 81 mg PO Q12H 04/08/22 04/08/22 History Docusate [Colace] 100 mg PO Q12H 04/08/22 04/08/22 History HYDROcodone/APAP 5-325MG [[place] 1 tab PO Q6H PRN 04/08/22 04/08/22 History 5-325] QUEtiapine [SEROquel] 12.5 mg PO HS PRN 04/08/22 04/08/22 History Allergies Allergy/AdvReac Type Severity Reaction Status Date / Time Penicillins Allergy Unknown Verified 04/08/22 18:31 Sulfa (Sulfonamide Allergy Unknown Verified 04/08/22 18:31 Antibiotics) Physical Examination - Vital Signs Vital Signs: Vital Signs Temp Pulse Pulse Resp BP BP Pulse Ox 04/09/22 04:39 98.3 F 101 H 117/62 92 L 04/08/22 23:23 98.4 F 92 16 121/68 93 L 04/08/22 21:10 100.4 F H 04/08/22 18:17 100.3 F H 109 H 20 123/59 96 Intake and Output 04/08/22 04/09/22 04/09/22 22:59 06:59 14:59 Output Total 200 Balance -200 Output: Urine 200 Straight 200 Other: # Voids 1 Weight 60.7 kg 60.7 kg Patient is an elderly female in no acute distress. Patient is alert awake fairly well oriented to time place and person, however she is confused, as she feels there is "going to be more Snow outside", and believes that it is middle of the winter season. She knows it is March 2022 and that she is in [facility] in [place]. She knows name of the current president and her date of . Speech and language functions are normal. Patient can name and repeat very well. No aphasia or dysarthria. Attention, concentration is intact and fund of knowledge is slightly limited. On cranial nerve examination, pupils are equal, round and reacting to light, visual mccoy are full on confrontation, with no neglect on double simultaneous stimulation. Extraocular muscles are intact with no nystagmus. Face is symmetric, tongue protrudes to the midline. Palatal elevation and sensation normal, hearing is moderately decreased and shoulder shrug normal, facial sensation normal. On muscle strength testing, there is no obvious pronator drift. Patient seems to be guarding her right upper extremity. She complains of pain in the right shoulder region. On muscle strength testing (right/left) deltoid 5-/5-, biceps 5-pain/5, triceps 5/5, agent based modeler 5/5, ankle dorsiflexion 5/5, hip flexion not checked. Deep tendon reflexes symmetric, slightly hypoactive and plantars are downgoing. Sensory to touch is equal with no neglect on double simultaneous stimulation. Cerebellar function showed no ataxia for [id number] testing. No dysdiadochokinesia. No ataxia for [id number] testing on either side. Tone and bulk of muscles normal. Gait deferred.. On general examination, there is no carotid bruit or murmur, S1-S2 audible. Chest is clear on consultation. Abdomen is soft nontender. No organomegaly, bowel sounds present. Peripheral pulses are present. No edema. Results - Laboratory Findings CBC and BMP: 04/09/22 04:02 04/09/22 04:54 Abnormal Lab Findings: Abnormal Labs 04/08/22 04/08/22 04/08/22 18:13 19:04 19:04 RBC 2.85 L Hgb 8.5 L Hct 26.0 L Sodium 136 L Glucose 125 H POC Glucose (mg/dL) 131 H Total Protein 6.0 L Albumin 3.3 L Urine Protein Urine Ketones Hyaline Casts Urine Mucus Urine Opiates Screen 04/08/22 04/09/22 21:09 04:02 RBC 2.59 L Hgb 7.5 L Hct 23.7 L Sodium Glucose POC Glucose (mg/dL) Total Protein Albumin Urine Protein 1+ H Urine Ketones 3+ H Hyaline Casts 4 H Urine Mucus Occasional H Urine Opiates Screen Detected H Assessment and Plan Assessment: * Altered mental status, probably due to acute delirium. This is likely due to pain medications ([place]) she received postoperatively. Rule out underlying cognitive impairment. Patient's family denies any previous history of memory dysfunction. * Recent history of right hip fracture status post arthroplasty 04/05/2022. * Borderline diabetes with A1c 6.3. Plan: * Avoid opiates, benzodiazepines, sedatives hypnotics. * If her delirium persist, would suggest increasing dose of Seroquel. * Check B12, folate. Her TSH was normal on 10/03/2021, no need to repeat. Ammonia normal. * We will follow her clinically. Discussed with patient's family in detail. * Dr. Tod Snowden Will resume neurology service in the morning. Thank you for the consult. Time with Patient: Greater than 30
[2022-04-09] MEDS: PANTOPRAZOLE 40 MG TABLET PO SCH (21:34)
[2022-04-09] MEDS ORDERED: LORazepam 2 MG/ML INJ IV STA (22:00)
[2022-04-10] MEDS: HEPARIN SODIUM,PORCINE/PF 5,000 UNIT/0.5 ML SYRINGE SQ SCH ×3 (00:53→15:16)
[2022-04-10] MEDS: SODIUM CHLORIDE 0.9% 1,000 ML IV SCH ×3 (02:18→22:55)
[2022-04-10] MEDS: LEVOTHYROXINE 25 MCG TAB PO SCH (08:52)
[2022-04-10] MEDS: DOCUSATE 100 MG CAP PO SCH ×2 (08:53→21:00)
[2022-04-10] MEDS: ASPIRIN 81 MG PO SCH ×2 (08:53→21:00)
[2022-04-10 08:54] LABS: Basophils # (A) 0.07 X 10*3/uL (0.00-0.10); Eosinophils # (A) 0.36 X 10*3/uL (0.04-0.35); Eosinophils % (A) 4.9 %; HCT 22.5 % (37.2-46.3); HGB 7.4 g/dL (12.0-15.0); Immature Grans, Automated 0.8 %; Lymphocytes # (A) 1.48 X 10*3/uL (0.90-5.00); Lymphocytes % (A) 20.2 %; MCH 28.7 pg (27.0-32.0); MCHC 32.9 g/dL (32.0-37.0); MCV 87.2 fL (80.0-97.0); Mean Platelet Volume 12.5 fL (9.5-12.2); Monocytes # (A) 0.54 X 10*3/uL (0.20-1.00); Monocytes % (A) 7.4 %; NRBC Per 100 WBC 0 /100 WBCS (0.0-0.0); Neutrophils % (A) 65.7 %; Platelet Count 283 X 10*3/uL (140-440); RBC 2.58 X 10*6/uL (4.10-5.20); RDW 13.7 % (11.5-14.5); WBC 7.31 X 10*3/uL (4.50-10.00)
[2022-04-10 08:59] LABS: African American GFR (CKD) 105.9 (60.0-200.0); Anion Gap 11.1 mmol/L (10.00-18.00); BUN/Creat Ratio 18.8 Ratio (12.00-20.00); Blood Urea Nitrogen 9.4 mg/dL (9.0-27.0); Calcium 8.9 mg/dL (8.7-10.3); Carbon Dioxide 20.9 mmol/L (20.0-27.5); Non-African American GFR(CKD) 91.4 (60.0-200.0); Potassium 3.7 mmol/L (3.5-5.5)
--- NOTE | 2022-04-10 14:21 | P.PN ---
Subjective Progress Note Date: 04/10/22 Principal diagnosis: Confusion Patient is a 82-year-old female with past medical history of right hip fracture status post closed reduction with nailing on 04/05. She was subsequently discharge to medical [place] and now returns due to confusion and agitation and and complaints by nursing staff of change in mental status. 04/10/2022: Patient remains confused and altered at baseline. Discussed with nursing staff states patient had some behavioral issues overnight. Patient was not given Seroquel daily at bedtime last night Objective - Vital Signs Vital signs: Vital Signs Temp 98.3 F 04/10/22 11:28 Pulse 99 04/10/22 11:28 Resp 17 04/10/22 11:28 BP 99/60 04/10/22 11:28 Pulse Ox 96 04/10/22 11:28 FiO2 Intake & Output 04/09/22 04/10/22 04/10/22 18:59 06:59 18:59 Intake Total 1560 590 Output Total 1900 3 Balance 1560 -1310 -3 Intake: Intake, IV Titration 1560 Amount Sodium Chloride 0.9% 1, 1560 000 ml @ 130 mls/hr IV . Q7H42M [facility] Rx#:[id number] Oral 590 Output: Urine 1900 2 Stool 1 Other: Voiding Method Bedside Commode Bedside Commode Bedside Commode Diaper Diaper Diaper Incontinent Incontinent Incontinent External Catheter External Catheter # Voids 1 - Exam Physical examination: General: non toxic, no distress, appears at stated age, normal weight Derm: no unusual rashes/lesions, warm Head: atraumatic, normocephalic, symmetric Eyes: EOMI, no lid lag, anicteric sclera, pupils equal round reactive to light ENT: Nose and ears atraumatic Neck: No cervical lymphadenopathy, trachea midline, supple Mouth: no lip lesion, mucus membranes moist Cardiovascular: S1S2 reg, no murmur, positive dorsalis pedis pulse bilateral, no edema Lungs: CTA bilateral, no rhonchi, no rales, no accessory muscle use Abdominal: soft, nontender to palpation, no guarding Ext: no gross muscle atrophy, no contractures Neuro: CN II-XI grossly intact, no gross focal neuro deficits Psych: Lethargic, answers basic questions with significant stimulation - Labs CBC & Chem 7: 04/10/22 05:32 04/10/22 05:32 Labs: Abnormal Lab Results - Last 24 Hours (Table) 04/09/22 04/10/22 04/10/22 Range/Units 04:54 05:32 05:32 RBC 2.58 L (4.10-5.20) X 10*6/uL Hgb 7.4 L (12.0-15.0) g/dL Hct 22.5 L (37.2-46.3) % MPV 12.5 H (9.5-12.2) fL Immature Gran # 0.06 H (0.00-0.04) X 10*3/uL Eosinophils # 0.36 H (0.04-0.35) X 10*3/uL Creatinine 0.5 L (0.6-1.5) mg/dL Vitamin B12 1621.0 H (200.0-944.0) pg/mL Microbiology - Last 24 Hours (Table) 04/08/22 19:07 Blood Culture - Preliminary Blood No Growth after 24 hours 04/08/22 19:04 Blood Culture - Preliminary Blood No Growth after 24 hours Assessment and Plan Assessment: Acute metabolic encephalopathy -Possibly secondary to medication side effect of opioids superimposed on underlying dementia -Patient's mentation has improved with removal of opioid medications. We'll continue to avoid -Infectious workup negative to date -Haldol when necessary for agitation and behavioral issues -We will schedule Seroquel as she was not given her when necessary dose last night. 12.5 mg twice a day scheduled -Neurology team is also following Recent right hip fracture status post closed reduction with nailing performed on 04/05/2022 -Continue with Tylenol for pain control Anemia -Hemoglobin stable. Continue to trend Left clavicle fracture -This was seen on previous imaging on previous hospital admission. At this time being managed conservatively nonsurgically. Continue to maintain patient in a sling and continue with pain control with Tylenol DVT prophylaxis: Heparin subcu Diet: Regular (1) Acute delirium Current Visit: Yes Status: Acute Code(s): R41.0 - DISORIENTATION, UNSPECIFIED SNOMED Code(s): 6907670
[2022-04-10] MEDS: ACETAMINOPHEN TAB 325 MG TAB PO PRN ×2 (14:39→20:57)
[2022-04-10] MEDS: PANTOPRAZOLE 40 MG TABLET PO SCH (20:57)
[2022-04-10] MEDS: QUEtiapine 25 MG TAB PO SCH (20:59)
[2022-04-11] MEDS: HEPARIN SODIUM,PORCINE/PF 5,000 UNIT/0.5 ML SYRINGE SQ SCH ×4 (01:22→23:27)
[2022-04-11] MEDS: SODIUM CHLORIDE 0.9% 1,000 ML IV SCH ×3 (01:23→20:32)
[2022-04-11] MEDS: QUEtiapine 25 MG TAB PO SCH ×2 (08:37→20:44)
[2022-04-11] MEDS: ASPIRIN 81 MG PO SCH ×3 (08:39→20:43)
[2022-04-11] MEDS: DOCUSATE 100 MG CAP PO SCH ×3 (08:39→20:43)
[2022-04-11] MEDS: LEVOTHYROXINE 25 MCG TAB PO SCH (08:39)
--- NOTE | 2022-04-11 13:04 | P.DS ---
Providers Date of admission: 04/08/22 23:05 Attending physician: Lauro Ashton MD Consults: 04/09/22 04:14 Consult Physician Urgent Consulting Provider: Tod Snowden Consult Reason/Comments: AMS Do you want consulting provider notified?: Yes Primary care physician: Soy Scruggs - Discharge Diagnosis(es) (1) Acute delirium Current Visit: Yes Status: Acute Hospital Course: Patient is a 82-year-old female recently suffered a right hip fracture and is status post close reduction with nailing surgery on 04/05/2022. Patient was discharged to rehab facility and was sent back from rehab facility due to mentation changes. Patient behaviors improved in the hospital. She did still remained confused and altered however she was not having any significant agitation and aggression. Patient was started on Seroquel 12.5 mg twice a day with improvement. Her narcotics were discontinued. Patient will be discharged back to rehab facility. Discharge diagnosis: Acute metabolic encephalopathy -Possibly secondary to medication side effect of opioids superimposed on underlying dementia -Patient's mentation has improved with removal of opioid medications. We'll continue to avoid -Infectious workup negative to date -Haldol when necessary for agitation and behavioral issues -We will schedule Seroquel as she was not given her when necessary dose last night. 12.5 mg twice a day scheduled -Neurology team is also following Recent right hip fracture status post closed reduction with nailing performed on 04/05/2022 -Continue with Tylenol for pain control Anemia -Hemoglobin stable. Continue to trend Left clavicle fracture -This was seen on previous imaging on previous hospital admission. At this time being managed conservatively nonsurgically. Continue to maintain patient in a sling and continue with pain control with Tylenol DVT prophylaxis: Heparin subcu Diet: Regular Patient Condition at Discharge: Stable Plan - Discharge Summary Discharge Rx Participant: No New Discharge Prescriptions: New QUEtiapine [SEROquel] 12.5 mg PO BID tab Continue Pantoprazole [Protonix] 40 mg PO HS prednisoLONE ACETATE 1% OPHTH [Pred Forte 1%] 1 drop BOTH EYES HS Levothyroxine Sodium [Synthroid] 12.5 mcg PO DAILY HYDROcodone/APAP 5-325MG [[place] 5-325] 1 tab PO Q6H PRN PRN Reason: Pain Docusate [Colace] 100 mg PO Q12H Ketorolac 0.5% Ophth Soln [Acular 0.5%] 1 drop BOTH EYES Q12H ALPRAZolam [Xanax] 0.25 mg PO Q24H PRN PRN Reason: Anxiety Aspirin 81 mg PO Q12H Discontinued QUEtiapine [SEROquel] 12.5 mg PO HS PRN PRN Reason: Anxiety Discharge Medication List Pantoprazole [Protonix] 40 mg PO HS 03/16/21 [History] Ketorolac 0.5% Ophth Soln [Acular 0.5%] 1 drop BOTH EYES Q12H 04/04/22 [History] Levothyroxine Sodium [Synthroid] 12.5 mcg PO DAILY 04/04/22 [History] prednisoLONE ACETATE 1% OPHTH [Pred Forte 1%] 1 drop BOTH EYES HS 04/04/22 [History] ALPRAZolam [Xanax] 0.25 mg PO Q24H PRN 04/08/22 [History] Aspirin 81 mg PO Q12H 04/08/22 [History] Docusate [Colace] 100 mg PO Q12H 04/08/22 [History] HYDROcodone/APAP 5-325MG [[place] 5-325] 1 tab PO Q6H PRN 04/08/22 [History] QUEtiapine [SEROquel] 12.5 mg PO BID tab 04/11/22 [Rx] Follow up Appointment(s)/Referral(s): Soy Scruggs MD [Primary Care Provider] - 1-2 days
[2022-04-11] MEDS: ACETAMINOPHEN TAB 325 MG TAB PO PRN ×2 (15:20→21:21)
--- NOTE | 2022-04-11 16:19 | P.PN ---
Subjective Progress Note Date: 04/11/22 Principal diagnosis: Confusion Patient is a 82-year-old female with past medical history of right hip fracture status post closed reduction with nailing on 04/05. She was subsequently discharge to medical [place] and now returns due to confusion and agitation and and complaints by nursing staff of change in mental status. Patient seen and examined. She still remains confused however less behavioral agitation. Objective - Vital Signs Vital signs: Vital Signs Temp 98.2 F 04/11/22 11:32 Pulse 103 H 04/11/22 11:32 Resp 16 04/11/22 11:32 BP 110/65 04/11/22 11:32 Pulse Ox 96 04/11/22 11:32 FiO2 21 04/10/22 20:23 Intake & Output 04/10/22 04/11/22 04/11/22 18:59 06:59 18:59 Intake Total 250 Output Total 3 2 4 Balance -3 248 -4 Intake: Oral 250 Output: Urine 2 1 2 Stool 1 1 2 Other: Voiding Method Bedside Commode Bedside Commode Bedside Commode Diaper Diaper Diaper Incontinent Incontinent Incontinent External Catheter External Catheter External Catheter # Voids 2 1 # Bowel Movements 1 - Exam Physical examination: General: non toxic, no distress, appears at stated age, normal weight Derm: no unusual rashes/lesions, warm Head: atraumatic, normocephalic, symmetric Eyes: EOMI, no lid lag, anicteric sclera, pupils equal round reactive to light ENT: Nose and ears atraumatic Neck: No cervical lymphadenopathy, trachea midline, supple Mouth: no lip lesion, mucus membranes moist Cardiovascular: S1S2 reg, no murmur, positive dorsalis pedis pulse bilateral, no edema Lungs: CTA bilateral, no rhonchi, no rales, no accessory muscle use Abdominal: soft, nontender to palpation, no guarding Ext: no gross muscle atrophy, no contractures Neuro: CN II-XI grossly intact, no gross focal neuro deficits Psych: Lethargic, answers basic questions with significant stimulation - Labs CBC & Chem 7: 04/10/22 05:32 04/10/22 05:32 Labs: Microbiology - Last 24 Hours (Table) 04/08/22 19:07 Blood Culture - Preliminary Blood No Growth after 48 hours 04/08/22 19:04 Blood Culture - Preliminary Blood No Growth after 48 hours Assessment and Plan Assessment: Acute metabolic encephalopathy -Possibly secondary to medication side effect of opioids superimposed on unde rlying dementia -Patient's mentation has improved with removal of opioid medications. We'll continue to avoid -Infectious workup negative to date -Haldol when necessary for agitation and behavioral issues -Seroquel twice a day -Neurology team is also following Recent right hip fracture status post closed reduction with nailing performed on 04/05/2022 -Continue with Tylenol for pain control Anemia -Hemoglobin stable. Continue to trend Left clavicle fracture -This was seen on previous imaging on previous hospital admission. At this time being managed conservatively nonsurgically. Continue to maintain patient in a sling and continue with pain control with Tylenol DVT prophylaxis: Heparin subcu Diet: Regular Disposition: Patient is awaiting discharge to ECF facility (1) Acute delirium Current Visit: Yes Status: Acute Code(s): R41.0 - DISORIENTATION, UNSPECIFIED SNOMED Code(s): 0083991
[2022-04-11] MEDS: PANTOPRAZOLE 40 MG TABLET PO SCH (20:44)
[2022-04-11 21:21] VITALS: RESP 18
--- NOTE | 2022-04-11 22:54 | P.PN ---
Subjective Progress Note Date: 04/10/22 Patient was seen for a follow-up. Patient appears quite confused. Patient is calling out loud "Bill". Patient is talking about some lita named "Miles", who she describes as "a lita who helps to walk again", probably referring to physical therapist. Patient is constantly asking for handing her over two pads/depends. She does not want 1, rather 2 of them. Speech and language functions are normal. Denies any headache or any numbness or tingling or dizziness. Objective - Vital Signs Vital signs: Vital Signs Temp 98.3 F 04/10/22 11:28 Pulse 99 04/10/22 11:28 Resp 17 04/10/22 11:28 BP 99/60 04/10/22 11:28 Pulse Ox 96 04/10/22 11:28 FiO2 Intake & Output 04/09/22 04/10/22 04/10/22 18:59 06:59 18:59 Intake Total 1560 590 Output Total 1900 3 Balance 1560 -1310 -3 Intake: Intake, IV Titration 1560 Amount Sodium Chloride 0.9% 1, 1560 000 ml @ 130 mls/hr IV . Q7H42M [facility] Rx#:[id number] Oral 590 Output: Urine 1900 2 Stool 1 Other: Voiding Method Bedside Commode Bedside Commode Bedside Commode Diaper Diaper Diaper Incontinent Incontinent Incontinent External Catheter External Catheter # Voids 1 - Exam Patient is alert and awake. Patient states it is April and the year is 2021. She knows name of the current president Mr. [place]. She knows she is in [place], in a "[place]". She could not tell what kind of building it is. Speech and language functions are normal. Cranial nerves are normal. Visual mccoy full. Muscle strength is normal in the arms. Sensations are equal. No ataxia. - Labs CBC & Chem 7: 04/10/22 05:32 04/10/22 05:32 Labs: Abnormal Lab Results - Last 24 Hours (Table) 04/09/22 04/10/22 04/10/22 Range/Units 04:54 05:32 05:32 RBC 2.58 L (4.10-5.20) X 10*6/uL Hgb 7.4 L (12.0-15.0) g/dL Hct 22.5 L (37.2-46.3) % MPV 12.5 H (9.5-12.2) fL Immature Gran # 0.06 H (0.00-0.04) X 10*3/uL Eosinophils # 0.36 H (0.04-0.35) X 10*3/uL Creatinine 0.5 L (0.6-1.5) mg/dL Vitamin B12 1621.0 H (200.0-944.0) pg/mL Microbiology - Last 24 Hours (Table) 04/08/22 19:07 Blood Culture - Preliminary Blood No Growth after 24 hours 04/08/22 19:04 Blood Culture - Preliminary Blood No Growth after 24 hours Assessment and Plan Assessment: * Altered mental status, probably due to acute delirium. This is likely due to pain medications ([place]) she received postoperatively. Rule out underlying cognitive impairment. Patient's family denies any previous history of memory dysfunction. * Recent history of right hip fracture status post arthroplasty 04/05/2022. * Borderline diabetes with A1c 6.3. Plan: * Avoid opiates, benzodiazepines, sedatives hypnotics. * If her delirium persist, would suggest increasing dose of Seroquel. * Suggest psychiatry consultation. * B12 1621, folate >20. Her TSH was normal on 10/03/2021, no need to repeat. Ammonia normal. * neurology will follow.
--- NOTE | 2022-04-11 22:59 | P.PN ---
Subjective Progress Note Date: 04/11/22 Patient was seen for a follow-up. Patient states that she was supposed to go home today, but did not go. She can walk. She again talking about Miles therapist, that she walked great with him until she fell. She overall feels better. Objective - Vital Signs Vital signs: Vital Signs Temp 98.9 F 04/11/22 21:00 Pulse 93 04/11/22 21:00 Resp 18 04/11/22 21:00 BP 164/81 04/11/22 21:00 Pulse Ox 96 04/11/22 21:00 FiO2 21 04/10/22 20:23 Intake & Output 04/11/22 04/11/22 04/12/22 06:59 18:59 06:59 Intake Total 250 Output Total 2 6 Balance 248 -6 Intake: Oral 250 Output: Urine 1 3 Stool 1 3 Other: Voiding Method Bedside Commode Bedside Commode Diaper Diaper Incontinent Incontinent External Catheter External Catheter # Voids 2 1 # Bowel Movements 1 - Exam Patient is alert and awake. Patient is much more oriented, knows it is 04/11/2022 and that she is in [facility] in [place]. She could not tell the city. She knows that she is in [facility]. Speech and language functions are normal. Cranial nerves are normal. Visual mccoy full. Muscle strength is normal in the arms. Sensations are equal. No ataxia. - Labs CBC & Chem 7: 04/10/22 05:32 04/10/22 05:32 Labs: Microbiology - Last 24 Hours (Table) 04/08/22 19:07 Blood Culture - Preliminary Blood No Growth after 72 hours 04/08/22 19:04 Blood Culture - Preliminary Blood No Growth after 72 hours Assessment and Plan Assessment: * Altered mental status, probably due to acute delirium. This is likely due to pain medications ([place]) she received postoperatively. Rule out underlying cognitive impairment. Patient's family denies any previous history of memory dysfunction. * Recent history of right hip fracture status post arthroplasty 04/05/2022. * Borderline diabetes with A1c 6.3. Plan: * Avoid opiates, benzodiazepines, sedatives hypnotics. * If her delirium persist, would suggest increasing dose of Seroquel. * Patient's mentation has improved. * B12 1621, folate >20. Her TSH was normal on 10/03/2021, no need to repeat. Ammonia normal. * Neurologically clear. Dr. Tod Snowden will start neurology service in the morning.
[2022-04-12] MEDS: SODIUM CHLORIDE 0.9% 1,000 ML IV SCH (03:05)
[2022-04-12] MEDS: ACETAMINOPHEN TAB 325 MG TAB PO PRN (03:42)
[2022-04-12 03:45] VITALS: BP 135/70; PULSE 87; TEMP 98.3
[2022-04-12] MEDS: LEVOTHYROXINE 25 MCG TAB PO SCH (05:14)
[2022-04-12] MEDS: QUEtiapine 25 MG TAB PO SCH (08:49)
[2022-04-12] MEDS: ASPIRIN 81 MG PO SCH (08:56)
[2022-04-12] MEDS: HEPARIN SODIUM,PORCINE/PF 5,000 UNIT/0.5 ML SYRINGE SQ SCH (08:56)
[2022-04-12] MEDS: DOCUSATE 100 MG CAP PO SCH (08:56)
[2022-04-12 09:14] LABS: African American GFR (CKD) 100.8 (60.0-200.0); Anion Gap 9.3 mmol/L (10.00-18.00); BUN/Creat Ratio 22.16 Ratio (12.00-20.00); Blood Urea Nitrogen 12.9 mg/dL (9.0-27.0); Calcium 9.4 mg/dL (8.7-10.3); Carbon Dioxide 24.4 mmol/L (20.0-27.5); Potassium 4.1 mmol/L (3.5-5.5)
== END 2022-04-12 12:43 | disposition home health service (06) | DRG 92 ==
LOC: EC 18:09 → 5NMEDONC 23:05
PROVIDERS: ADMIT Internal Medicine; ATTEND Internal Medicine
DX: G92.8 Other toxic encephalopathy (principal); F03.91 Unspecified dementia, unspecified severity, with behavioral disturbance; T40.2X5A Adverse effect of other opioids, initial encounter; R73.03 Prediabetes; S72.001D Fracture of unspecified part of neck of right femur, subsequent encounter for closed fracture with routine healing; S42.002D Fracture of unspecified part of left clavicle, subsequent encounter for fracture with routine healing; R45.1 Restlessness and agitation; I49.1 Atrial premature depolarization; D64.9 Anemia, unspecified; F41.9 Anxiety disorder, unspecified; F91.9 Conduct disorder, unspecified; G31.9 Degenerative disease of nervous system, unspecified; Z20.822 Contact with and (suspected) exposure to COVID-19; Z79.82 Long term (current) use of aspirin; Z79.890 Hormone replacement therapy; Z82.49 Family history of ischemic heart disease and other diseases of the circulatory system; Z86.73 Personal history of transient ischemic attack (TIA), and cerebral infarction without residual deficits; Z87.01 Personal history of pneumonia (recurrent); Z87.440 Personal history of urinary (tract) infections; Z91.19 Patient's noncompliance with other medical treatment and regimen; Z88.0 Allergy status to penicillin; Z88.2 Allergy status to sulfonamides; Z79.899 Other long term (current) drug therapy
CPT/HCPCS: 36415; 70450; 71046; 73502; 80048; 80053; 80306; 81001; 82140; 82607; 82746; 83605; 84484; 85025; 85610; 85730; 87040; 87635; 93005; 94760; 96360; 96372; 99285

== ENCOUNTER 2022-12-20 10:20 | Emergency (ER) | payer MEDICARE ==
[2022-12-20 10:43] VITALS: RESP 16
[2022-12-20 11:37] LABS: Appearance,Urine Clear (Clear); Bilirubin,Urine Negative (Negative); Blood,Urine Trace (Negative); Color,Urine Yellow; Glucose,Urine (UA) Negative (Negative); Ketones,Urine Negative (Negative); Leukocyte Esterase,Urine Moderate (Negative); Mucus,Urine Rare /hpf; Nitrite,Urine Negative (Negative); Protein,Urine Negative (Negative); RBC,Urine <1 /hpf (0-5); Specific Gravity,Urine 1.005 (1.001-1.035); Squamous Epithelial Cell,Urine 1 /hpf (0-4); Urobilinogen,Urine <2.0 mg/dL (<2.0); WBC,Urine 5 /hpf (0-5)
[2022-12-20 11:45] LABS: Basophils % (A) 1 %; Eosinophils # (A) 0.1 k/uL (0-0.7); Eosinophils % (A) 2 %; HCT 38.2 % (34.0-46.0); HGB 12.3 gm/dL (11.4-16.0); Lymphocytes # (A) 0.8 k/uL (1.0-4.8); Lymphocytes % (A) 15 %; MCH 28.8 pg (25.0-35.0); MCHC 32.2 g/dL (31.0-37.0); MCV 89.5 fL (80.0-100.0); Mean Platelet Volume 8.9; Monocytes # (A) 0.3 k/uL (0-1.0); Monocytes % (A) 5 %; Neutrophils # (A) 3.9 k/uL (1.3-7.7); Neutrophils % (A) 76 %; Platelet Count 359 k/uL (150-450); RBC 4.27 m/uL (3.80-5.40); RDW 12.5 % (11.5-15.5); WBC 5.2 k/uL (3.8-10.6)
[2022-12-20 11:58] LABS: ALT 23 U/L (4-34); AST 26 U/L (14-36); African American GFR (CKD) >90 (>60 ml/min/1.73 sqM); Albumin 3.7 g/dL (3.5-5.0); Alkaline Phosphatase 107 U/L (38-126); Anion Gap 11 mmol/L; Blood Urea Nitrogen 8 mg/dL (7-17); Calcium 9.5 mg/dL (8.4-10.2); Carbon Dioxide 23 mmol/L (22-30); Chloride 102 mmol/L (98-107); Glucose 130 mg/dL (74-99); Non-African American GFR(CKD) 78 (>60 ml/min/1.73 sqM); Potassium 4.1 mmol/L (3.5-5.1); Sodium 136 mmol/L (137-145); Total Bilirubin 0.4 mg/dL (0.2-1.3)
[2022-12-20 12:28] LABS: Partial Thromboplastin Time 23.9 sec (22.0-30.0); Prothrombin Time 10.3 sec (9.0-12.0)
--- NOTE | 2022-12-20 12:43 | ED ---
General Adult HPI - General Chief complaint: GI Bleed Stated complaint: Personal Matters Time Seen by Provider: 12/20/22 10:44 Source: patient, family, RN notes reviewed, old records reviewed Mode of arrival: wheelchair Limitations: no limitations - History of Present Illness Initial comments: 82-year-old female presenting with dark stool. Patient had developed diarrhea over the past 2 days and started taking Pepto-Bismol. She developed dark stools and had contacted the primary care physician who recommended the patient presented to the emergency department for evaluation. Patient denies abdominal pain. Denies chest pain. She is not on any anticoagulation. She has no prior history of GI bleed. - Related Data Home Medications Medication Instructions Recorded Confirmed Pantoprazole [Protonix] 40 mg PO W/SUPPER 03/16/21 12/20/22 Levothyroxine Sodium [Synthroid] 12.5 mcg PO DAILY 04/04/22 12/20/22 prednisoLONE ACETATE 1% OPHTH 1 drop BOTH EYES HS 04/04/22 12/20/22 [Pred Forte 1%] Ascorbic Acid [Vitamin C] 500 mg PO DAILY 12/20/22 12/20/22 Biotin 5 mg PO DAILY 12/20/22 12/20/22 Cephalexin [Keflex] 500 mg PO Q8HR 12/20/22 12/20/22 Difluprednate [Difluprednate Ophth 1 drop BOTH EYES BID 12/20/22 12/20/22 Soln] Multivitamins, Thera [Multivitamin 1 tab PO DAILY 12/20/22 12/20/22 (formulary)] Vitamin B Complex 1 cap PO DAILY 12/20/22 12/20/22 Allergies Allergy/AdvReac Type Severity Reaction Status Date / Time Penicillins Allergy Unknown Verified 12/20/22 11:38 Sulfa (Sulfonamide Allergy Unknown Verified 12/20/22 11:38 Antibiotics) Review of Systems ROS Statement: Those systems with pertinent positive or pertinent negative responses have been documented in the HPI. ROS Other: All systems not noted in ROS Statement are negative. Past Medical History Past Medical History: GERD/Reflux, Pneumonia, Thyroid Disorder Additional Past Medical History / Comment(s): bowel perforation 2019, uterine prolpase with pessary, UTI, TIA, hypotyroidism History of Any Multi-Drug Resistant Organisms: None Reported Past Surgical History: Bowel Resection Additional Past Surgical History / Comment(s): left femur surgery, cataract, inguinal hernia surgery repair Past Anesthesia/Blood Transfusion Reactions: No Reported Reaction Past Psychological History: Anxiety Smoking Status: Never smoker Past Alcohol Use History: None Reported Past Drug Use History: None Reported - Past Family History Mother Family Medical History: Myocardial Infarction (DC) General Exam Limitations: no limitations General appearance: alert, in no apparent distress Head exam: Present: atraumatic, normocephalic Eye exam: Present: normal appearance, PERRL ENT exam: Present: normal exam Neck exam: Present: normal inspection. Absent: tenderness, meningismus Respiratory exam: Present: normal lung sounds bilaterally. Absent: respiratory distress, wheezes Cardiovascular Exam: Present: regular rate, normal rhythm GI/Abdominal exam: Present: soft. Absent: distended, tenderness, guarding Rectal exam: Present: black stool Extremities exam: Present: normal inspection, normal capillary refill Neurological exam: Present: alert. Absent: motor sensory deficit Psychiatric exam: Present: normal affect, normal mood Skin exam: Present: warm Course Vital Signs 12/20/22 10:37 Temperature 98 F Pulse Rate 93 Respiratory 16 Rate Blood Pressure 112/61 O2 Sat by Pulse 94 L Oximetry Medical Decision Making - Medical Decision Making Was pt. sent in by a medical professional or institution (, PA, [employer], urgent care, hospital, or prison...) When possible be specific @ -Primary care Did you speak to anyone other than the patient for history (EMS, parent, family, police, friend...)? What history was obtained from this source @Patient's Did you review nursing and triage notes (agree or disagree)? Why? @ -I reviewed and agree with nursing and triage notes Were old charts reviewed (outside hosp., previous admission, EMS record, old EKG, old radiological studies, urgent care reports/EKG's, prison records)? Report findings @ -No old charts were reviewed Differential Diagnosis (chest pain, altered mental status, abdominal pain women, abdominal pain men, vaginal bleeding, weakness, fever, dyspnea, syncope, headache, dizziness, GI bleed, back pain, seizure, CVA, palpatations, mental health, musculoskeletal)? @ -Differential GI Bleed: Esophageal varices, aortoenteric fistula, [place], gastritis, peptic ulcer disease, diverticulosis, inflammatory bowel disease, hemorrhoids, fissure, colitis, malignancy, Meckels diverticulum, this is not meant to be an all-inclusive list. EKG interpreted by me (3pts min.). @ -As above X-rays interpreted by me (1pt min.). @ -None done CT interpreted by me (1pt min.). @ -None done U/S interpreted by me (1pt. min.). @ -None done What testing was considered but not performed or refused? (CT, X-rays, U/S, labs)? Why? @ -None What meds were considered but not given or refused? Why? @ -None Did you discuss the management of the patient with other professionals (professionals i.e. DrRoger, PA, [employer], lab, RT, psych nurse, social media intern, steam and gas turbines assembler, teacher, sales promotion officer, rn case manager hospice)? Give summary @ -No Was smoking cessation discussed for >3mins.? @ -No Was critical care preformed (if so, how long)? @ -No Were there social determinants of health that impacted care today? How? (Homelessness, low income, unemployed, alcoholism, drug addiction, transportation, low edu. Level, literacy, decrease access to med. care, group home, rehab)? @ -No Was there de-escalation of care discussed even if they declined (Discuss DNR or withdrawal of care, Hospice)? DNR status @ -No What co-morbidities impacted this encounter? (DM, HTN, Smoking, COPD, CAD, Cancer, CVA, ARF, Chemo, Hep., AIDS, mental health diagnosis, sleep apnea, morbid obesity)? @Dementia Was patient admitted / discharged? Hospital course, mention meds given and route, prescriptions, significant lab abnormalities, going to OR and other pertinent info. @82-year-old female with black stool. This was likely secondary to Pepto- Bismol, hemoglobin was checked which was normal. Occult stool sample was sent which was negative for blood. Patient has otherwise normal laboratory testing. She should follow-up with her primary care physician. Undiagnosed new problem with uncertain prognosis? @ -No Drug Therapy requiring intensive monitoring for toxicity (Heparin, Nitro, Insulin, Cardizem)? @ -No Were any procedures done? @ -No Diagnosis/symptom? @ -Black stool secondary to Pepto-Bismol Acute, or Chronic, or Acute on Chronic? @ -Acute Uncomplicated (without systemic symptoms) or Complicated (systemic symptoms)? @ -default Side effects of treatment? @ -No Exacerbation, Progression, or Severe Exacerbation? @ -No Poses a threat to life or bodily function? How? (Chest pain, [place], DC, pneumonia, PE, COPD, DKA, ARF, appy, cholecystitis, CVA, Diverticulitis, Homicidal, Suicidal, threat to staff... and all critical care pts) @ -No - Lab Data Result diagrams: 12/20/22 11:04 12/20/22 11:04 Lab Results 12/20/22 12/20/22 12/20/22 Range/Units 11:04 11:04 11:04 WBC 5.2 (3.8-10.6) k/uL RBC 4.27 (3.80-5.40) m/uL Hgb 12.3 (11.4-16.0) gm/dL Hct 38.2 (34.0-46.0) % MCV 89.5 (80.0-100.0) fL MCH 28.8 (25.0-35.0) pg MCHC 32.2 (31.0-37.0) g/dL RDW 12.5 (11.5-15.5) % Plt Count 359 (150-450) k/uL MPV 8.9 Neutrophils % 76 % Lymphocytes % 15 % Monocytes % 5 % Eosinophils % 2 % Basophils % 1 % Neutrophils # 3.9 (1.3-7.7) k/uL Lymphocytes # 0.8 L (1.0-4.8) k/uL Monocytes # 0.3 (0-1.0) k/uL Eosinophils # 0.1 (0-0.7) k/uL Basophils # 0.0 (0-0.2) k/uL PT 10.3 (9.0-12.0) sec INR 1.0 (<1.2) APTT 23.9 (22.0-30.0) sec Sodium (137-145) mmol/L Potassium (3.5-5.1) mmol/L Chloride (98-107) mmol/L Carbon Dioxide (22-30) mmol/L Anion Gap mmol/L BUN (7-17) mg/dL Creatinine (0.52-1.04) mg/dL Est GFR (CKD-EPI)AfAm (>60 ml/min/1.73 sqM) Est GFR (CKD-EPI)NonAf (>60 ml/min/1.73 sqM) Glucose (74-99) mg/dL Calcium (8.4-10.2) mg/dL Total Bilirubin (0.2-1.3) mg/dL AST (14-36) U/L ALT (4-34) U/L Alkaline Phosphatase (38-126) U/L Total Protein (6.3-8.2) g/dL Albumin (3.5-5.0) g/dL Urine Color Urine Appearance (Clear) Urine pH (5.0-8.0) Ur Specific [place] (1.001-1.035) Urine Protein (Negative) Urine Glucose (UA) (Negative) Urine Ketones (Negative) Urine Blood (Negative) Urine Nitrite (Negative) Urine Bilirubin (Negative) Urine Urobilinogen (<2.0) mg/dL Ur Leukocyte Esterase (Negative) Urine RBC (0-5) /hpf Urine WBC (0-5) /hpf Ur Squamous Epith Cells (0-4) /hpf Urine Mucus (None) /hpf Stool Occult Blood Negative (Negative) 12/20/22 12/20/22 Range/Units 11:04 11:09 WBC (3.8-10.6) k/uL RBC (3.80-5.40) m/uL Hgb (11.4-16.0) gm/dL Hct (34.0-46.0) % MCV (80.0-100.0) fL MCH (25.0-35.0) pg MCHC (31.0-37.0) g/dL RDW (11.5-15.5) % Plt Count (150-450) k/uL MPV Neutrophils % % Lymphocytes % % Monocytes % % Eosinophils % % Basophils % % Neutrophils # (1.3-7.7) k/uL Lymphocytes # (1.0-4.8) k/uL Monocytes # (0-1.0) k/uL Eosinophils # (0-0.7) k/uL Basophils # (0-0.2) k/uL PT (9.0-12.0) sec INR (<1.2) APTT (22.0-30.0) sec Sodium 136 L (137-145) mmol/L Potassium 4.1 (3.5-5.1) mmol/L Chloride 102 (98-107) mmol/L Carbon Dioxide 23 (22-30) mmol/L Anion Gap 11 mmol/L BUN 8 (7-17) mg/dL Creatinine 0.73 (0.52-1.04) mg/dL Est GFR (CKD-EPI)AfAm >90 (>60 ml/min/1.73 sqM) Est GFR (CKD-EPI)NonAf 78 (>60 ml/min/1.73 sqM) Glucose 130 H (74-99) mg/dL Calcium 9.5 (8.4-10.2) mg/dL Total Bilirubin 0.4 (0.2-1.3) mg/dL AST 26 (14-36) U/L ALT 23 (4-34) U/L Alkaline Phosphatase 107 (38-126) U/L Total Protein 7.0 (6.3-8.2) g/dL Albumin 3.7 (3.5-5.0) g/dL Urine Color Yellow Urine Appearance Clear (Clear) Urine pH 6.0 (5.0-8.0) Ur Specific [place] 1.005 (1.001-1.035) Urine Protein Negative (Negative) Urine Glucose (UA) Negative (Negative) Urine Ketones Negative (Negative) Urine Blood Trace H (Negative) Urine Nitrite Negative (Negative) Urine Bilirubin Negative (Negative) Urine Urobilinogen <2.0 (<2.0) mg/dL Ur Leukocyte Esterase Moderate H (Negative) Urine RBC <1 (0-5) /hpf Urine WBC 5 (0-5) /hpf Ur Squamous Epith Cells 1 (0-4) /hpf Urine Mucus Rare H (None) /hpf Stool Occult Blood (Negative) Disposition Clinical Impression: Black stool, Diarrhea Disposition: HOME SELF-CARE Condition: Good Instructions (If sedation given, give patient instructions): Acute Diarrhea (ED) Is patient prescribed a controlled substance at d/c from ED?: No Referrals: Soy Scruggs MD [Primary Care Provider] - 1-2 days Time of Disposition: 12:43
[2022-12-20 13:02] VITALS: BP 118/59; PULSE 92; TEMP 98.2
== END 2022-12-20 13:02 | disposition home or self-care (01) ==
LOC: EC 10:20
DX: K92.1 Melena (principal); K21.9 Gastro-esophageal reflux disease without esophagitis; F41.9 Anxiety disorder, unspecified; E03.9 Hypothyroidism, unspecified; Z79.890 Hormone replacement therapy; Z79.899 Other long term (current) drug therapy; Z88.0 Allergy status to penicillin; Z88.2 Allergy status to sulfonamides; Z86.73 Personal history of transient ischemic attack (TIA), and cerebral infarction without residual deficits
CPT/HCPCS: 36415; 80053; 81001; 82272; 85025; 85610; 85730; 99284

== ENCOUNTER 2023-02-08 13:09 | Emergency (ER) | payer MEDICARE ==
[2023-02-08 13:36] VITALS: RESP 18
[2023-02-08] MEDS ORDERED: SODIUM CHLORIDE 0.9% 500 ML 500 ML IV STA (14:11)
--- NOTE | 2023-02-08 14:36 | ED ---
Nausea/Vomiting/Diarrhea HPI - General Chief complaint: Nausea/Vomiting/Diarrhea Stated complaint: ENT Time Seen by Provider: 02/08/23 14:00 Source: patient, family, RN notes reviewed Mode of arrival: wheelchair Limitations: altered mental status - History of Present Illness Initial comments: 82-year-old female presents emergency Department chief complaint diarrhea 3 days. Patient was seen by PCP recommended to emergency department if she continued. Patient denies any abdominal pain no nausea vomiting no melanotic stools no blood in her stools. Patient denies any fevers chills no other complaints. No recent travel and no recent antibiotics - Related Data Home Medications Medication Instructions Recorded Confirmed Pantoprazole [Protonix] 40 mg PO W/SUPPER 03/16/21 12/20/22 Levothyroxine Sodium [Synthroid] 12.5 mcg PO DAILY 04/04/22 12/20/22 prednisoLONE ACETATE 1% OPHTH 1 drop BOTH EYES HS 04/04/22 12/20/22 [Pred Forte 1%] Ascorbic Acid [Vitamin C] 500 mg PO DAILY 12/20/22 12/20/22 Biotin 5 mg PO DAILY 12/20/22 12/20/22 Cephalexin [Keflex] 500 mg PO Q8HR 12/20/22 12/20/22 Difluprednate [Difluprednate Ophth 1 drop BOTH EYES BID 12/20/22 12/20/22 Soln] Multivitamins, Thera [Multivitamin 1 tab PO DAILY 12/20/22 12/20/22 (formulary)] Vitamin B Complex 1 cap PO DAILY 12/20/22 12/20/22 Allergies Allergy/AdvReac Type Severity Reaction Status Date / Time Penicillins Allergy Unknown Verified 02/08/23 13:36 Sulfa (Sulfonamide Allergy Unknown Verified 02/08/23 13:36 Antibiotics) Review of Systems ROS Statement: Those systems with pertinent positive or pertinent negative responses have been documented in the HPI. ROS Other: All systems not noted in ROS Statement are negative. Past Medical History Past Medical History: GERD/Reflux, Pneumonia, Thyroid Disorder Additional Past Medical History / Comment(s): bowel perforation 2019, uterine prolpase with pessary, UTI, TIA, hypotyroidism History of Any Multi-Drug Resistant Organisms: None Reported Past Surgical History: Bowel Resection Additional Past Surgical History / Comment(s): left femur surgery, cataract, inguinal hernia surgery repair Past Anesthesia/Blood Transfusion Reactions: No Reported Reaction Past Psychological History: Anxiety Smoking Status: Never smoker Past Alcohol Use History: None Reported Past Drug Use History: None Reported - Past Family History Mother Family Medical History: Myocardial Infarction ([place]) General Exam Limitations: altered mental status General appearance: alert, in no apparent distress Head exam: Present: atraumatic, normocephalic, normal inspection Eye exam: Present: normal appearance, PERRL, EOMI. Absent: scleral icterus, conjunctival injection, periorbital swelling ENT exam: Present: normal exam, mucous membranes moist Respiratory exam: Present: normal lung sounds bilaterally. Absent: respiratory distress, wheezes, rales, rhonchi, stridor Cardiovascular Exam: Present: regular rate, normal rhythm, normal heart sounds. Absent: systolic murmur, diastolic murmur, rubs, gallop, clicks GI/Abdominal exam: Present: soft, normal bowel sounds. Absent: distended, tenderness, guarding, rebound, rigid Course Vital Signs 02/08/23 02/08/23 13:32 15:00 Temperature 99.4 F 98.3 F Pulse Rate 99 98 Respiratory 18 18 Rate Blood Pressure 107/51 116/87 O2 Sat by Pulse 95 97 Oximetry Medical Decision Making - Medical Decision Making Was pt. sent in by a medical professional or institution ([facility], [facility], urgent care, hospital, or longterm...) When possible be specific @ -No Did you speak to anyone other than the patient for history (EMS, parent, family, police, friend...)? What history was obtained from this source @ - on room provided an old history Did you review nursing and triage notes (agree or disagree)? Why? @ -I reviewed and agree with nursing and triage notes Were old charts reviewed (outside hosp., previous admission, EMS record, old EKG, old radiological studies, urgent care reports/EKG's, longterm records)? Report findings @ -No old charts were reviewed Differential Diagnosis (chest pain, altered mental status, abdominal pain women, abdominal pain men, vaginal bleeding, weakness, fever, dyspnea, syncope, headache, dizziness, GI bleed, back pain, seizure, CVA, palpatations, mental health, musculoskeletal)? @ -Differential Abdominal Pain Women: Appendicitis, Cholecystitis, diverticulosis, ischemic bowel, pancreatitis, hepatitis, UTI, gastroenteritis, AAA, incarcerated hernia, bowel obstruction, constipation, inflammatory bowel, hepatitis, peptic ulcer disease, splenic infarction, perforated viscus, vulvitis, ovarian torsion, PID, kidney stone, placenta abruption, this is not meant to be an all-inclusive listble EKG interpreted by me (3pts min.). @ -None X-rays interpreted by me (1pt min.). @ -None done CT interpreted by me (1pt min.). @ -None done U/S interpreted by me (1pt. min.). @ -None done What testing was considered but not performed or refused? (CT, X-rays, U/S, labs)? Why? @ -None What meds were considered but not given or refused? Why? @ -None Did you discuss the management of the patient with other professionals (professionals i.e. , PA, [facility], lab, RT, psych nurse, social media campaign manager, secure software assessor, teacher, tactical response group officer, case hardener)? Give summary @ -No Was smoking cessation discussed for >3mins.? @ -No Was critical care preformed (if so, how long)? @ -No Were there social determinants of health that impacted care today? How? (Homelessness, low income, unemployed, alcoholism, drug addiction, tra nsportation, low edu. Level, literacy, decrease access to med. care, skilled nursing, rehab)? @ -No Was there de-escalation of care discussed even if they declined (Discuss DNR or withdrawal of care, Hospice)? DNR status @ -No What co-morbidities impacted this encounter? (DM, HTN, Smoking, COPD, CAD, Cancer, CVA, ARF, Chemo, Hep., AIDS, mental health diagnosis, sleep apnea, morbid obesity)? @ -Dementia Was patient admitted / discharged? Hospital course, mention meds given and route, prescriptions, significant lab abnormalities, going to OR and other pertinent info. @ -Discharge patient has had there for 3 days no acute laboratory changes. Patient will be discharged in stable condition with close follow-up return parameters were discussed. Undiagnosed new problem with uncertain prognosis? @ -No Drug Therapy requiring intensive monitoring for toxicity (Heparin, Nitro, Insulin, Cardizem)? @ -No Were any procedures done? @ -No Diagnosis/symptom? @ -Diarrhea Acute, or Chronic, or Acute on Chronic? @ -Acute Uncomplicated (without systemic symptoms) or Complicated (systemic symptoms)? @ -Uncomplicated Side effects of treatment? @ -No Exacerbation, Progression, or Severe Exacerbation? @ -No Poses a threat to life or bodily function? How? (Chest pain, [place], [place], pneumonia, PE, COPD, DKA, ARF, appy, cholecystitis, CVA, Diverticulitis, Homicidal, Suicidal, threat to staff... and all critical care pts) @ -No - Lab Data Result diagrams: 02/08/23 14:39 02/08/23 14:39 Lab Results 02/08/23 02/08/23 02/08/23 Range/Units 13:14 14:39 14:39 WBC 5.9 (3.8-10.6) k/uL RBC 4.14 (3.80-5.40) m/uL Hgb 12.6 (11.4-16.0) gm/dL Hct 36.9 (34.0-46.0) % MCV 89.2 (80.0-100.0) fL MCH 30.4 (25.0-35.0) pg MCHC 34.0 (31.0-37.0) g/dL RDW 13.3 (11.5-15.5) % Plt Count 230 (150-450) k/uL MPV 9.0 Neutrophils % 61 % Lymphocytes % 22 % Monocytes % 11 % Eosinophils % 2 % Basophils % 1 % Neutrophils # 3.6 (1.3-7.7) k/uL Lymphocytes # 1.3 (1.0-4.8) k/uL Monocytes # 0.7 (0-1.0) k/uL Eosinophils # 0.1 (0-0.7) k/uL Basophils # 0.1 (0-0.2) k/uL Sodium 132 L (137-145) mmol/L Potassium 4.0 (3.5-5.1) mmol/L Chloride 100 (98-107) mmol/L Carbon Dioxide 23 (22-30) mmol/L Anion Gap 9 mmol/L BUN 13 (7-17) mg/dL Creatinine 0.77 (0.52-1.04) mg/dL Est GFR (CKD-EPI)AfAm 84 (>60 ml/min/1.73 sqM) Est GFR (CKD-EPI)NonAf 73 (>60 ml/min/1.73 sqM) Glucose 101 H (74-99) mg/dL Calcium 9.3 (8.4-10.2) mg/dL Magnesium 1.7 (1.6-2.3) mg/dL Total Bilirubin 0.9 (0.2-1.3) mg/dL AST 28 (14-36) U/L ALT 18 (4-34) U/L Alkaline Phosphatase 92 (38-126) U/L Total Protein 6.8 (6.3-8.2) g/dL Albumin 3.6 (3.5-5.0) g/dL Lipase 40 (23-300) U/L Urine Color Yellow Urine Appearance Clear (Clear) Urine pH 6.0 (5.0-8.0) Ur Specific [place] 1.016 (1.001-1.035) Urine Protein 1+ H (Negative) Urine Glucose (UA) Negative (Negative) Urine Ketones Negative (Negative) Urine Blood Negative (Negative) Urine Nitrite Negative (Negative) Urine Bilirubin Negative (Negative) Urine Urobilinogen <2.0 (<2.0) mg/dL Ur Leukocyte Esterase Negative (Negative) Urine RBC 1 (0-5) /hpf Urine WBC 1 (0-5) /hpf Ur Squamous Epith Cells <1 (0-4) /hpf Urine Mucus Rare H (None) /hpf Disposition Clinical Impression: Diarrhea Disposition: HOME SELF-CARE Condition: Stable Instructions (If sedation given, give patient instructions): Acute Diarrhea (ED) Additional Instructions: Please return to the Emergency Department if symptoms worsen or any other concerns. Is patient prescribed a controlled substance at d/c from ED?: No Referrals: Soy Scruggs MD [Primary Care Provider] - 1-2 days Time of Disposition: 15:49
[2023-02-08 14:52] LABS: Basophils # (A) 0.1 k/uL (0-0.2); Basophils % (A) 1 %; Eosinophils # (A) 0.1 k/uL (0-0.7); Eosinophils % (A) 2 %; HCT 36.9 % (34.0-46.0); HGB 12.6 gm/dL (11.4-16.0); Lymphocytes # (A) 1.3 k/uL (1.0-4.8); Lymphocytes % (A) 22 %; MCH 30.4 pg (25.0-35.0); MCV 89.2 fL (80.0-100.0); Monocytes # (A) 0.7 k/uL (0-1.0); Monocytes % (A) 11 %; Neutrophils # (A) 3.6 k/uL (1.3-7.7); Neutrophils % (A) 61 %; Platelet Count 230 k/uL (150-450); RBC 4.14 m/uL (3.80-5.40); RDW 13.3 % (11.5-15.5); WBC 5.9 k/uL (3.8-10.6)
[2023-02-08 15:02] LABS: ALT 18 U/L (4-34); AST 28 U/L (14-36); African American GFR (CKD) 84 (>60 ml/min/1.73 sqM); Albumin 3.6 g/dL (3.5-5.0); Alkaline Phosphatase 92 U/L (38-126); Anion Gap 9 mmol/L; Blood Urea Nitrogen 13 mg/dL (7-17); Calcium 9.3 mg/dL (8.4-10.2); Carbon Dioxide 23 mmol/L (22-30); Chloride 100 mmol/L (98-107); Glucose 101 mg/dL (74-99); Lipase 40 U/L (23-300); Magnesium 1.7 mg/dL (1.6-2.3); Non-African American GFR(CKD) 73 (>60 ml/min/1.73 sqM); Sodium 132 mmol/L (137-145); Total Bilirubin 0.9 mg/dL (0.2-1.3); Total Protein 6.8 g/dL (6.3-8.2)
[2023-02-08] MEDS ORDERED: ACETAMINOPHEN TAB 325 MG TAB PO STA (15:28)
[2023-02-08 15:44] LABS: Appearance,Urine Clear (Clear); Bilirubin,Urine Negative (Negative); Blood,Urine Negative (Negative); Color,Urine Yellow; Glucose,Urine (UA) Negative (Negative); Ketones,Urine Negative (Negative); Leukocyte Esterase,Urine Negative (Negative); Mucus,Urine Rare /hpf; Nitrite,Urine Negative (Negative); Protein,Urine 1+ (Negative); RBC,Urine 1 /hpf (0-5); Specific Gravity,Urine 1.016 (1.001-1.035); Squamous Epithelial Cell,Urine <1 /hpf (0-4); Urobilinogen,Urine <2.0 mg/dL (<2.0); WBC,Urine 1 /hpf (0-5)
[2023-02-08] MEDS ORDERED: DIPHENOX-ATROP STARTER PACK 8 TAB BTL PO STA (15:46)
[2023-02-08 16:15] VITALS: BP 119/51; PULSE 102; TEMP 98.6
== END 2023-02-08 16:43 | disposition home or self-care (01) ==
LOC: EC 13:09
DX: R19.7 Diarrhea, unspecified (principal); K21.9 Gastro-esophageal reflux disease without esophagitis; E07.9 Disorder of thyroid, unspecified; F41.9 Anxiety disorder, unspecified; Z79.890 Hormone replacement therapy; Z79.899 Other long term (current) drug therapy; Z88.0 Allergy status to penicillin; Z88.2 Allergy status to sulfonamides
CPT/HCPCS: 36415; 80053; 81001; 83690; 83735; 85025; 96360; 99284

== ENCOUNTER 2023-02-08 23:51 | Emergency (ER) | payer MEDICARE ==
[2023-02-08] MEDS ORDERED: SODIUM CHLORIDE 0.9% 1,000 ML IV STA (23:55)
--- NOTE | 2023-02-08 23:58 | ED ---
Weakness HPI - General Stated complaint: Weakness Time Seen by Provider: 02/08/23 23:55 Source: RN notes reviewed, old records reviewed, Caregiver Mode of arrival: EMS Limitations: no limitations - History of Present Illness Initial comments: This is an 82-year-old female to the emergency department for evaluation. Patient presents with nausea and diarrhea vomiting no specific abdominal pain no travel history no sick contacts no fevers no other significant complaints. Patient is here also complaining of weakness. Overall generalized not feeling well., Main concern being diarrhea MD Complaint: generalized weakness (Having diarrhea) -: unknown Location: generalized Severity: mild Severity scale (1-10): 2 Consistency: intermittent Improves with: none Worsens with: none Context: history of similar Associated Symptoms: confusion, loss of appetite, nausea/vomiting - Related Data Home Medications Medication Instructions Recorded Confirmed Pantoprazole [Protonix] 40 mg PO W/SUPPER 03/16/21 12/20/22 Levothyroxine Sodium [Synthroid] 12.5 mcg PO DAILY 04/04/22 12/20/22 prednisoLONE ACETATE 1% OPHTH 1 drop BOTH EYES HS 04/04/22 12/20/22 [Pred Forte 1%] Ascorbic Acid [Vitamin C] 500 mg PO DAILY 12/20/22 12/20/22 Biotin 5 mg PO DAILY 12/20/22 12/20/22 Cephalexin [Keflex] 500 mg PO Q8HR 12/20/22 12/20/22 Difluprednate [Difluprednate Ophth 1 drop BOTH EYES BID 12/20/22 12/20/22 Soln] Multivitamins, Thera [Multivitamin 1 tab PO DAILY 12/20/22 12/20/22 (formulary)] Vitamin B Complex 1 cap PO DAILY 12/20/22 12/20/22 Allergies Allergy/AdvReac Type Severity Reaction Status Date / Time Penicillins Allergy Unknown Verified 02/08/23 13:36 Sulfa (Sulfonamide Allergy Unknown Verified 02/08/23 13:36 Antibiotics) Review of Systems ROS Statement: Those systems with pertinent positive or pertinent negative responses have been documented in the HPI. ROS Other: All systems not noted in ROS Statement are negative. Past Medical History Past Medical History: GERD/Reflux, Pneumonia, Thyroid Disorder Additional Past Medical History / Comment(s): bowel perforation 2020, uterine prolpase with pessary, UTI, TIA, hypotyroidism History of Any Multi-Drug Resistant Organisms: None Reported Past Surgical History: Bowel Resection Additional Past Surgical History / Comment(s): left femur surgery, cataract, inguinal hernia surgery repair Past Anesthesia/Blood Transfusion Reactions: No Reported Reaction Past Psychological History: Anxiety Smoking Status: Never smoker Past Alcohol Use History: None Reported Past Drug Use History: None Reported - Past Family History Mother Family Medical History: Myocardial Infarction ([place]) General Exam General appearance: alert, in no apparent distress Head exam: Present: atraumatic, normocephalic, normal inspection Eye exam: Present: normal appearance, PERRL, EOMI. Absent: scleral icterus, conjunctival injection, periorbital swelling ENT exam: Present: normal exam, mucous membranes moist Neck exam: Present: normal inspection. Absent: tenderness, meningismus, lymphadenopathy Respiratory exam: Present: normal lung sounds bilaterally. Absent: respiratory distress, wheezes, rales, rhonchi, stridor Cardiovascular Exam: Present: regular rate, normal rhythm, normal heart sounds. Absent: systolic murmur, diastolic murmur, rubs, gallop, clicks GI/Abdominal exam: Present: soft, normal bowel sounds. Absent: distended, tenderness, guarding, rebound, rigid Extremities exam: Present: normal inspection, full ROM, normal capillary refill. Absent: tenderness, pedal edema, joint swelling, calf tenderness Back exam: Present: normal inspection Neurological exam: Present: alert, oriented X3, CN II-XII intact Psychiatric exam: Present: normal affect, normal mood Skin exam: Present: warm, dry, intact, normal color. Absent: rash Course Vital Signs 02/08/23 02/09/23 02/09/23 23:56 01:01 07:52 Temperature 98.7 F Pulse Rate 100 96 103 H Respiratory 15 17 20 Rate Blood Pressure 117/50 115/54 O2 Sat by Pulse 93 L 94 L 97 Oximetry - Reevaluation(s) Reevaluation #1: 02/09/23 02:34 Medical record is reviewed Reevaluation #2: 02/09/23 02:34 Patient symptoms are unchanged:34 Reevaluation #3: 02/09/23 02:34 Patient informed of results and questions are answered Reevaluation #4: 02/09/23 00:47 Was pt. sent in by a medical professional or institution? @ -no Did you speak to anyone other than the patient for history? @ -no Did you review nursing and triage notes? @ -agree Were old charts reviewed? @ -yes Differential Diagnosis? @ -prior EKG interpreted by me (3pts min.)? @ -yes X-rays interpreted by me (1pt min.)? @ -yes CT interpreted by me (1pt min.)? @ -yes U/S interpreted by me (1pt. min.)? @ -no What testing was considered but not performed? (CT, X-rays, U/S, labs)? Why? @ -no What meds were considered but not given? Why? @ -no Did you discuss the management of the patient with other professionals? @ -no Did you reconcile home meds? @ -no Was smoking cessation discussed for >3mins.? @ -no Was critical care preformed (if so, how long)? @ -no Were there social determinants of health that impacted care today? How? (Homel essness, low income, unemployed, alcoholism, drug addiction, transportation, low edu. Level, literacy, decrease access to med. care, skilled nursing, rehab)? @ -no Was there de-escalation of care discussed even if they declined? (Discuss DNR or withdrawal of care, Hospice)? @ -no What co-morbidities impacted this encounter? (DM, HTN, Smoking, COPD, CAD, Cancer, CVA, Hep., AIDS, mental health diagnosis, sleep apnea, morbid obesity)? @ -none Was patient admitted / discharged? @ -82 female to the emergency room today for evaluation of abdominal pain. Patient also has persistent diarrhea. Patient is in no significant distress here in the ER feels improved with hydration and symptom control. Patient can be discharged home Discharge Undiagnosed new problem with uncertain prognosis? @ -no Drug Therapy requiring intensive monitoring for toxicity (Heparin, Nitro, Insulin, Cardizem)? @ -no Were any procedures done? @ -no Diagnosis/symptom? @ -Weakness, diarrhea Acute, or Chronic, or Acute on Chronic? @ -acute Uncomplicated (without systemic symptoms) or Complicated (systemic symptoms)? @ -complicated Side effects of treatment? @ -no Exacerbation, Progression, or Severe Exacerbation] @ -no Poses a threat to life or bodily function? @ -yes with extremes of age Reevaluation #5: Differential Weakness: Hypoglycemia, shock, sepsis, hyponatremia, anemia, infection, [place], ETOH, adverse medicine reaction, overdose, stroke, this is not meant to be an all-inclusive list. Medical Decision Making - Medical Decision Making 82 female to the emergency room today for evaluation of abdominal pain. Patient also has persistent diarrhea. Patient is in no significant distress here in the ER feels improved with hydration and symptom control. Patient can be discharged home - Lab Data Result diagrams: 02/09/23 01:01 02/09/23 01:01 Lab Results 02/09/23 02/09/23 02/09/23 Range/Units 01:01 01:01 01:01 WBC 6.5 (3.8-10.6) k/uL RBC 3.60 L (3.80-5.40) m/uL Hgb 10.9 L (11.4-16.0) gm/dL Hct 32.1 L (34.0-46.0) % MCV 89.2 (80.0-100.0) fL MCH 30.4 (25.0-35.0) pg MCHC 34.1 (31.0-37.0) g/dL RDW 13.2 (11.5-15.5) % Plt Count 219 (150-450) k/uL MPV 9.1 Neutrophils % 76 % Lymphocytes % 10 % Monocytes % 10 % Eosinophils % 1 % Basophils % 1 % Neutrophils # 4.9 (1.3-7.7) k/uL Lymphocytes # 0.6 L (1.0-4.8) k/uL Monocytes # 0.7 (0-1.0) k/uL Eosinophils # 0.1 (0-0.7) k/uL Basophils # 0.1 (0-0.2) k/uL PT 11.5 (9.0-12.0) sec INR 1.1 (<1.2) APTT 23.5 (22.0-30.0) sec Sodium (137-145) mmol/L Potassium (3.5-5.1) mmol/L Chloride (98-107) mmol/L Carbon Dioxide (22-30) mmol/L Anion Gap mmol/L BUN (7-17) mg/dL Creatinine (0.52-1.04) mg/dL Est GFR (CKD-EPI)AfAm (>60 ml/min/1.73 sqM) Est GFR (CKD-EPI)NonAf (>60 ml/min/1.73 sqM) Glucose (74-99) mg/dL Plasma Lactic Acid Dilip (0.7-2.0) mmol/L Calcium (8.4-10.2) mg/dL Phosphorus (2.5-4.5) mg/dL Magnesium (1.6-2.3) mg/dL Total Bilirubin (0.2-1.3) mg/dL AST (14-36) U/L ALT (4-34) U/L Alkaline Phosphatase (38-126) U/L Troponin I (0.000-0.034) ng/mL NT-Pro-B Natriuret Pep pg/mL Total Protein (6.3-8.2) g/dL Albumin (3.5-5.0) g/dL Urine Color Light Yellow Urine Appearance Clear (Clear) Urine pH 6.0 (5.0-8.0) Ur Specific [place] 1.008 (1.001-1.035) Urine Protein 1+ H (Negative) Urine Glucose (UA) Negative (Negative) Urine Ketones 1+ H (Negative) Urine Blood Small H (Negative) Urine Nitrite Negative (Negative) Urine Bilirubin Negative (Negative) Urine Urobilinogen <2.0 (<2.0) mg/dL Ur Leukocyte Esterase Large H (Negative) Urine RBC 5 (0-5) /hpf Urine WBC 15 H (0-5) /hpf Ur Squamous Epith Cells 2 (0-4) /hpf Amorphous Sediment Rare H (None) /hpf Urine Bacteria Many H (None) /hpf Hyaline Casts 3 H (0-2) /lpf Urine Mucus Rare H (None) /hpf 02/09/23 02/09/23 02/09/23 Range/Units 01:01 01:01 01:01 WBC (3.8-10.6) k/uL RBC (3.80-5.40) m/uL Hgb (11.4-16.0) gm/dL Hct (34.0-46.0) % MCV (80.0-100.0) fL MCH (25.0-35.0) pg MCHC (31.0-37.0) g/dL RDW (11.5-15.5) % Plt Count (150-450) k/uL MPV Neutrophils % % Lymphocytes % % Monocytes % % Eosinophils % % Basophils % % Neutrophils # (1.3-7.7) k/uL Lymphocytes # (1.0-4.8) k/uL Monocytes # (0-1.0) k/uL Eosinophils # (0-0.7) k/uL Basophils # (0-0.2) k/uL PT (9.0-12.0) sec INR (<1.2) APTT (22.0-30.0) sec Sodium 133 L (137-145) mmol/L Potassium 3.8 (3.5-5.1) mmol/L Chloride 103 (98-107) mmol/L Carbon Dioxide 22 (22-30) mmol/L Anion Gap 8 mmol/L BUN 13 (7-17) mg/dL Creatinine 0.81 (0.52-1.04) mg/dL Est GFR (CKD-EPI)AfAm 80 (>60 ml/min/1.73 sqM) Est GFR (CKD-EPI)NonAf 69 (>60 ml/min/1.73 sqM) Glucose 109 H (74-99) mg/dL Plasma Lactic Acid Dilip 0.8 (0.7-2.0) mmol/L Calcium 8.8 (8.4-10.2) mg/dL Phosphorus 2.8 (2.5-4.5) mg/dL Magnesium 1.5 L (1.6-2.3) mg/dL Total Bilirubin 0.6 (0.2-1.3) mg/dL AST 23 (14-36) U/L ALT 17 (4-34) U/L Alkaline Phosphatase 90 (38-126) U/L Troponin I <0.012 (0.000-0.034) ng/mL NT-Pro-B Natriuret Pep pg/mL Total Protein 5.9 L (6.3-8.2) g/dL Albumin 3.1 L (3.5-5.0) g/dL Urine Color Urine Appearance (Clear) Urine pH (5.0-8.0) Ur Specific [place] (1.001-1.035) Urine Protein (Negative) Urine Glucose (UA) (Negative) Urine Ketones (Negative) Urine Blood (Negative) Urine Nitrite (Negative) Urine Bilirubin (Negative) Urine Urobilinogen (<2.0) mg/dL Ur Leukocyte Esterase (Negative) Urine RBC (0-5) /hpf Urine WBC (0-5) /hpf Ur Squamous Epith Cells (0-4) /hpf Amorphous Sediment (None) /hpf Urine Bacteria (None) /hpf Hyaline Casts (0-2) /lpf Urine Mucus (None) /hpf 02/09/23 Range/Units 01:01 WBC (3.8-10.6) k/uL RBC (3.80-5.40) m/uL Hgb (11.4-16.0) gm/dL Hct (34.0-46.0) % MCV (80.0-100.0) fL MCH (25.0-35.0) pg MCHC (31.0-37.0) g/dL RDW (11.5-15.5) % Plt Count (150-450) k/uL MPV Neutrophils % % Lymphocytes % % Monocytes % % Eosinophils % % Basophils % % Neutrophils # (1.3-7.7) k/uL Lymphocytes # (1.0-4.8) k/uL Monocytes # (0-1.0) k/uL Eosinophils # (0-0.7) k/uL Basophils # (0-0.2) k/uL PT (9.0-12.0) sec INR (<1.2) APTT (22.0-30.0) sec Sodium (137-145) mmol/L Potassium (3.5-5.1) mmol/L Chloride (98-107) mmol/L Carbon Dioxide (22-30) mmol/L Anion Gap mmol/L BUN (7-17) mg/dL Creatinine (0.52-1.04) mg/dL Est GFR (CKD-EPI)AfAm (>60 ml/min/1.73 sqM) Est GFR (CKD-EPI)NonAf (>60 ml/min/1.73 sqM) Glucose (74-99) mg/dL Plasma Lactic Acid Dilip (0.7-2.0) mmol/L Calcium (8.4-10.2) mg/dL Phosphorus (2.5-4.5) mg/dL Magnesium (1.6-2.3) mg/dL Total Bilirubin (0.2-1.3) mg/dL AST (14-36) U/L ALT (4-34) U/L Alkaline Phosphatase (38-126) U/L Troponin I (0.000-0.034) ng/mL NT-Pro-B Natriuret Pep 380 pg/mL Total Protein (6.3-8.2) g/dL Albumin (3.5-5.0) g/dL Urine Color Urine Appearance (Clear) Urine pH (5.0-8.0) Ur Specific [place] (1.001-1.035) Urine Protein (Negative) Urine Glucose (UA) (Negative) Urine Ketones (Negative) Urine Blood (Negative) Urine Nitrite (Negative) Urine Bilirubin (Negative) Urine Urobilinogen (<2.0) mg/dL Ur Leukocyte Esterase (Negative) Urine RBC (0-5) /hpf Urine WBC (0-5) /hpf Ur Squamous Epith Cells (0-4) /hpf Amorphous Sediment (None) /hpf Urine Bacteria (None) /hpf Hyaline Casts (0-2) /lpf Urine Mucus (None) /hpf - Radiology Data Radiology results: report reviewed (S x-ray and CT abdomen and pelvis negative for acute disease), image reviewed Disposition Clinical Impression: Abdominal pain, Diarrhea Disposition: HOME SELF-CARE Condition: Good Instructions (If sedation given, give patient instructions): Abdominal Pain (ED) Is patient prescribed a controlled substance at d/c from ED?: No Referrals: Soy Scruggs MD [Primary Care Provider] - 1-2 days Time of Disposition: 06:00
[2023-02-09 00:10] VITALS: TEMP 98.7
[2023-02-09 01:22] LABS: Basophils # (A) 0.1 k/uL (0-0.2); Basophils % (A) 1 %; Eosinophils # (A) 0.1 k/uL (0-0.7); Eosinophils % (A) 1 %; HCT 32.1 % (34.0-46.0); HGB 10.9 gm/dL (11.4-16.0); Lymphocytes # (A) 0.6 k/uL (1.0-4.8); Lymphocytes % (A) 10 %; MCH 30.4 pg (25.0-35.0); MCHC 34.1 g/dL (31.0-37.0); MCV 89.2 fL (80.0-100.0); Mean Platelet Volume 9.1; Monocytes # (A) 0.7 k/uL (0-1.0); Monocytes % (A) 10 %; Neutrophils # (A) 4.9 k/uL (1.3-7.7); Neutrophils % (A) 76 %; Platelet Count 219 k/uL (150-450); RDW 13.2 % (11.5-15.5); WBC 6.5 k/uL (3.8-10.6)
[2023-02-09 01:26] LABS: ALT 17 U/L (4-34); AST 23 U/L (14-36); African American GFR (CKD) 80 (>60 ml/min/1.73 sqM); Albumin 3.1 g/dL (3.5-5.0); Alkaline Phosphatase 90 U/L (38-126); Anion Gap 8 mmol/L; Blood Urea Nitrogen 13 mg/dL (7-17); Calcium 8.8 mg/dL (8.4-10.2); Carbon Dioxide 22 mmol/L (22-30); Chloride 103 mmol/L (98-107); Glucose 109 mg/dL (74-99); Magnesium 1.5 mg/dL (1.6-2.3); Non-African American GFR(CKD) 69 (>60 ml/min/1.73 sqM); Phosphorus 2.8 mg/dL (2.5-4.5); Potassium 3.8 mmol/L (3.5-5.1); Sodium 133 mmol/L (137-145); Total Bilirubin 0.6 mg/dL (0.2-1.3); Total Protein 5.9 g/dL (6.3-8.2)
[2023-02-09 01:28] LABS: INR 1.1 (<1.2); Partial Thromboplastin Time 23.5 sec (22.0-30.0); Prothrombin Time 11.5 sec (9.0-12.0)
--- NOTE | 2023-02-09 02:12 | XR ---
EXAM: XR Chest, 1 View CLINICAL HISTORY: ITS.REASON XR Reason: weak TECHNIQUE: Frontal view of the chest. COMPARISON: No relevant prior studies available. FINDINGS: Lungs: No consolidation or mass. Pleural space: No acute findings Heart: cardiomegaly. Bones/joints: No acute findings. IMPRESSION: No acute cardiopulmonary process.
[2023-02-09 04:35] LABS: Amorphous Sediment,Urine Rare /hpf; Appearance,Urine Clear (Clear); Bacteria,Urine Many /hpf; Bilirubin,Urine Negative (Negative); Blood,Urine Small (Negative); Color,Urine Light Yellow; Glucose,Urine (UA) Negative (Negative); Hyaline Casts,Urine 3 /lpf (0-2); Ketones,Urine 1+ (Negative); Leukocyte Esterase,Urine Large (Negative); Mucus,Urine Rare /hpf; Nitrite,Urine Negative (Negative); Protein,Urine 1+ (Negative); RBC,Urine 5 /hpf (0-5); Specific Gravity,Urine 1.008 (1.001-1.035); Squamous Epithelial Cell,Urine 2 /hpf (0-4); Urobilinogen,Urine <2.0 mg/dL (<2.0); WBC,Urine 15 /hpf (0-5)
[2023-02-09 07:53] VITALS: BP 115/54; PULSE 103; RESP 20
--- NOTE | 2023-02-09 08:35 | CT ---
EXAMINATION TYPE: CT abdomen pelvis wo con DATE OF EXAM: 02/09/2023 HISTORY: Nausea vomiting and diarrhea. Abdominal pain. CT DLP: 682 mGycm. Automated Exposure Control for Dose Reduction was Utilized. TECHNIQUE: CT scan of the abdomen and pelvis is performed without oral or IV contrast. COMPARISON: Prior CT March 16, 2021 FINDINGS: Within the limitations of a non-contrast study, the following observations are made. LUNG BASES: Mild left greater than right bibasilar linear scarring and/or atelectasis with dependent atelectasis is redemonstrated. LIVER/GB: Gallbladder has distended margins with dependent density suggesting small stones and/or gal lbladder sludge. No surrounding fluid or fat stranding noted. There is 2.1 cm simple appearing thin-w alled cyst in the inferior right hepatic lobe axial image 68. No biliary dilatation is present. PANCREAS: No significant abnormality is seen. SPLEEN: No significant abnormality is seen. ADRENALS: No significant abnormality is seen. KIDNEYS: No renal stones or hydronephrosis is present bilaterally. BOWEL: Low-lying cecum into the right pelvis. Mild to moderate colonic fecal prominence in the right colon and cecum. No suspicious small or large bowel dilatation. UTERUS/ADNEXA: Small size anteverted uterus. Scattered tiny bilateral pelvic phleboliths redemonstrat ed. T-shaped density in the vaginal canal is presumed pessary type device. LYMPH NODES: No definitive greater than 1 cm abdominal or pelvic lymph nodes. OSSEOUS STRUCTURES: Osseous structures remaining demineralized. Metallic fixation hardware bilateral proximal femurs partially imaged causing streak artifact somewhat limiting evaluation of pelvic struc tures. At least moderate axial joint space loss in both hips. Mild facet arthropathy lower lumbar lev els. Grade 1 anterolisthesis L3 on L4 OTHER: Moderate to large sized fat-containing umbilical hernia sagittal image 66 redemonstrated. Inte rval surgical repair of bilateral inguinal hernias. IMPRESSION: Mild proximal colonic fecal stasis. No bowel obstruction. No acute findings identified on noncontrast CT.
== END 2023-02-09 07:53 | disposition home or self-care (01) ==
LOC: EC 23:51
DX: R19.7 Diarrhea, unspecified (principal); R10.9 Unspecified abdominal pain; K21.9 Gastro-esophageal reflux disease without esophagitis; E07.9 Disorder of thyroid, unspecified; F41.9 Anxiety disorder, unspecified; Z79.890 Hormone replacement therapy; Z79.899 Other long term (current) drug therapy; Z88.0 Allergy status to penicillin; Z88.1 Allergy status to other antibiotic agents; Z88.2 Allergy status to sulfonamides
CPT/HCPCS: 36415; 83880; 80053; 83605; 83735; 84100; 84484; 85025; 85610; 85730; 81001; 71045; 74176; 99285; 96365; 96361 ×5; J0696